=== PATIENT | male | born 1945 | race Caucasian/White ===

== ENCOUNTER 2016-05-26 16:51 | Inpatient (IN) ==
[2016-05-26] MEDS ORDERED: Ondansetron 4 MG/2 ML VIAL IVP ONE (17:14)
[2016-05-26] MEDS ORDERED: *HR* Morphine 2 MG/ML SYRINGE IVP ONE (17:15)
--- NOTE | 2016-05-26 17:15 | Emergency Department Note ---
Disposition Clinical Impression: Sepsis Qualifiers: Sepsis type: sepsis due to unspecified organism Qualified Code(s): A41.9 - Sepsis, unspecified organism Leukocytosis Qualifiers: Leukocytosis type: unspecified Qualified Code(s): D72.829 - Elevated white blood cell count, unspecified Abdominal pain Qualifiers: Abdominal location: epigastric Qualified Code(s): R10.13 - Epigastric pain Pneumonia Qualifiers: Pneumonia type: due to unspecified organism Laterality: left Lung location: lower lobe of lung Qualified Code(s): J18.9 - Pneumonia, unspecified organism Vomiting Qualifiers: Vomiting type: unspecified Vomiting Intractability: unspecified Nausea presence : with nausea Qualified Code(s): R11.2 - Nausea with vomiting, unspecified Disposition: Admitted As Inpatient Condition: Good General Adult HPI - General Chief complaint: ED GI Bleed Stated complaint: abdominal pain Time Seen by Provider: 05/26/16 17:04 Source: patient Mode of arrival: EMS Limitations: no limitations Nursing Notes Reviewed: Yes Vital Signs Reviewed: Yes - History of Present Illness HPI Narrative: 70-year-old male history of throat cancer with a PEG tube presents for evaluation of not feeling well for the past week. Noted have several bouts of coffee-ground emesis during this time. Also notable diarrhea. Denies any fevers. Reports some abdominal pain. Denies shortness of breath but does report a cough. at bedside the cough is been going on for the past week. Patient has not had any recent hospitalizations. Denies any chest pain. Denies any recent use of antibiotics. Patient states his pain is primarily in the midepigastric without radiation. Patient denies any known ulcers. No esophageal varices. No notable liver disease Does not admit to excessive NSAID use. Patient has not had an EGD or colonoscopy recently. at bedside states the patient's symptoms having gone on for over a week. His past history includes throat cancer that he had surgery on in the past. Onset (ago): week(s) Location: abdomen Radiation: non-radiation Pain Scale: 0 - Related Data Home Medications Medication Instructions Recorded Confirmed Acetaminophen [Tylenol] 650 tab PO Q6HR PRN 04/02/15 05/26/16 Albuterol Sulfate [Albuterol 2 puff IH Q6HR PRN 04/02/15 05/26/16 Inhaler] Magnesium Hydroxide [Milk of 15 ml PO BID PRN 04/02/15 05/26/16 Magnesia] Morphine Sulfate 40 mg PO Q6H PRN 09/01/15 05/26/16 Lactose-Reduced Food [Ensure 5 bottle PO DAILY 05/26/16 05/26/16 Liquid] Levothyroxine [Synthroid] 88 mcg PO DAILY 05/26/16 05/26/16 Lisinopril [Zestril] 5 mg PO DAILY 05/26/16 05/26/16 Ranitidine HCl [Acid Injection Molding Technician] 150 mg PO BID 05/26/16 05/26/16 Previous Rx's Medication Instructions Recorded Potassium Chloride Elixir 20 meq GTUBE DAILY 30 Days 09/03/15 [Potassium Chloride] Allergies Allergy/AdvReac Type Severity Reaction Status Date / Time ezetimibe [From Zetia] Allergy Swelling Verified 05/26/16 19:37 of Lip/Tongue/Throat All systems ED: reviewed and negative except as stated. Constitutional: Reports: as per HPI. Denies: fever Eyes: Reports: as per HPI ENT ED: Reports: as per HPI Cardiovascular: Reports: as per HPI. Denies: chest pain, palpitations Respiratory: Reports: as per HPI, cough. Denies: dyspnea Gastrointestinal: Reports: as per HPI, abdominal pain, nausea, vomiting, diarrhea Genitourinary: Reports: as per HPI Musculoskeletal: Reports: as per HPI Integumentary: Reports: as per HPI Neurological: Reports: as per HPI Psychiatric: Reports: as per HPI Endocrine: Reports: as per HPI Hematological/Lymphatic: Reports: as per HPI Past Medical History - Past Medical History Medical history: Reports: cancer, COPD, coronary artery disease, GI bleed, hyperlipidemia, hypertension, myocardial infarction, thyroid disease, other Surgical history: Reports: cancer surgery (G tube, radical neck), cholecystectomy, coronary bypass (CABG), tracheostomy (G tube, radical neck), other Psychiatric history: Reports: no psych history - Social History Smoking Status: Former smoker Smokeless Tobacco Status: No Alcohol use: Reports: none Drug use: Reports: none Physical Exam - General Limitations: no limitations General appearance: alert - Head Head exam: normocephalic, normal inspection - Eye Eye exam: Present: normal appearance, EOMI. Absent: scleral icterus - ENT ENT exam: normal exam, mucous membranes dry - Neck Neck exam: Present: normal inspection, trachea midline - Chest Chest inspection: Present: normal inspection, symmetric chest wall rise - Respiratory Respiratory exam: Present: other (Diffuse coarse lung sounds). Absent: respiratory distress - Cardiovascular Cardiovascular exam: Present: normal rhythm, tachycardia - Abdominal Exam Abdominal exam: Present: soft, tenderness (Mild to moderate tenderness in the epigastric), other (Functioning G-tube in place without surrounding erythema). Absent: distention, guarding, rebound - Rectal Exam Claims Support Specialist present during exam: Yes Rectal exam: Present: normal rectal tone, heme (-) stool. Absent: hemorrhoids, mass, tenderness - Extremities Exam Extremities exam: Present: normal inspection. Absent: pedal edema - Back Exam Back exam: Present: normal inspection - Neurological Exam Neurological exam: Present: alert, oriented X3 - Skin Skin exam: Present: warm, dry, intact, normal color Course Course Narrative: Patient presents from the [facility] work[facility] initiated. Patient did have an elevated WBC of 22,000 as well as elevated lactate 3.2. Patient's chest x-ray was read as no acute findings from the [facility]. Repeat lab work. Initiate IV fluid hydration and initiate sepsis protocol. His vitals are stable. Patient's hemoglobin was 16.3. Patient had a gastric Hemoccult that was read as positive. - Reevaluation(s) Reevaluation #1: Since the patient was having symptoms of cough and congestion in the setting of possible sepsis. Respiratory antibiotics were ordered. Patient's rectal guaiac was negative. However patient did have an episode of coffee-ground emesis. Time: 18:15 Reevaluation #2: Patient seen and examined. Patient denies any needs at this time. Time: 20:29 Vital Signs Temperature 98.6 F 05/26/16 16:54 Pulse Rate 112 05/26/16 16:54 Respiratory Rate 18 05/26/16 16:54 Blood Pressure 180/92 05/26/16 16:54 O2 Sat by Pulse Oximetry 93 L 05/26/16 16:54 Temperature 98.6 F 05/26/16 16:54 Pulse Rate 112 05/26/16 16:54 Respiratory Rate 18 05/26/16 16:54 Blood Pressure 180/92 05/26/16 16:54 O2 Sat by Pulse Oximetry 93 L 05/26/16 16:54 Medical Decision Making - MDM Narrative Medical decision making narrative: 70-year-old male with a history of throat cancer presents for evaluation of concerns for pneumonia. Patient was at the [facility]. Patient had lab work initially obtained at the [facility] which was concerning with an elevated leukocytosis and left shift and elevated lactate of 3.2. Patient IV fluid hydration started there. Patient's states that he has been having emesis over the past week. Patient was noted have some coffee-ground emesis, however the patient has not been having any blood out of his G-tube and the patient's rectal guaiac was negative. The patient clinically resembles pneumonia with cough that is possibly early in nature as is has not showed up on chest x-ray. Patient's abdominal exam shows some mild tenderness. Patient's CT of the abdomen and pelvis shows no acute abnormalities. Patient's repeat labs in the emergency department does show a decrease in the lactate to 2.2. Patient's receiving triple antibiotics for possible lung pathogens per sepsis protocol. Patient was given IV fluid and pain control. Patient's chest x-ray shows possible left lower lobe pneumonia. Patient has not had any recent hospitalizations, however the patient did present was SIRS criteria with elevated lactate 3.2 from the [facility] as well as leukocytosis. Patient was started on the sepsis order set and was given triple antibiotics per order set. The antibiotics will need to be de-escalated once patient shows improvement. It is unclear whether this patient's bleeding is from his gastric mucosa. Possibly the bleeding is related to his upper GI cancer. The patient is hemodynamically stable. The patient received prophylactic dose of Protonix. Patient was noted to the hospitalist for further evaluation and monitoring. - Medical Records Medical records reviewed: Yes I reviewed the patient's medical records. - Lab Data Lab results reviewed: Yes I reviewed the patient's lab results. Result diagrams: 05/26/16 17:32 05/26/16 17:32 Lab Results 05/26/16 05/26/16 05/26/16 Range/Units 15:49 17:32 17:32 WBC 24.5 H (4.3-11.1) K/mcL RBC 5.18 (4.19-5.50) M/mcL Hgb 15.8 (12.9-16.9) g/dL Hct 45.6 (37.5-50.1) % MCV 88.0 (83.0-100.0) fL MCH 30.5 (28.0-33.3) pg MCHC 34.6 (31.6-35.5) g/dL RDW 13.0 (11.5-14.5) % Plt Count 400 (140-400) K/mcL MPV 9.9 (9.4-12.4) fL Immature Gran % 0.5 (0-4) % Seg Neutrophils % 93.8 % Lymphocytes % 3.5 % Monocytes % 2.0 % Eosinophils % 0.0 % Basophils % 0.2 % Neutrophils # 23.0 H (1.6-8.9) K/mcL Lymphocytes # 0.9 (0.6-4.6) K/mcL Monocytes # 0.5 (0.0-1.3) K/mcL Eosinophils # 0.0 (0.0-0.6) K/mcL Basophils # 0.1 (0.0-0.2) K/mcL Platelet Estimate Normal (Normal) PT 11.3 (9.4-12.1) Seconds INR 1.0 APTT 26.0 (26.0-36.0) Seconds Sodium (136-145) mEq/L Potassium (3.5-4.5) mEq/L Chloride (98-109) mEq/L Carbon Dioxide (19-29) mEq/L BUN (8-26) mg/dL Creatinine (0.72-1.25) mg/dL Est GFR ( Amer) (> 60) Est GFR (Non-Af Amer) (> 60) BUN/Creatinine Ratio (6-26) Glucose (70-99) mg/dL Calculated Osmolality (280-300) Lactic Acid (0.5-2.2) mmol/L Calcium (8.6-10.8) mg/dL Phosphorus (2.3-4.7) mg/dL Magnesium (1.6-2.6) mg/dL Total Bilirubin (0.2-1.2) mg/dL Direct Bilirubin (0.0-0.5) mg/dL Indirect Bilirubin (0.0-1.2) mg/dL AST (5-34) Units/L ALT (0-55) Units/L Alkaline Phosphatase (38-126) Units/L Troponin I (0-0.03) ng/mL Serum Total Protein (6.0-8.3) g/dL Albumin (3.5-5.0) g/dL Globulin (2.4-3.5) g/dL Albumin/Globulin Ratio (1.1-2.2) Urine Color Yellow (Yellow) Urine Clarity Clear (Clear) Urine pH 8.0 (5.0-8.0) pH Units Ur Specific [place] 1.021 (1.010-1.025) Urine Protein 30 H (Neg-Trace) mg/dL Urine Glucose (UA) 100 H (Normal) mg/dL Urine Ketones Negative (Negative) mg/dL Urine Blood Negative (Negative) Urine Nitrite Negative (Negative) Urine Bilirubin Negative (Negative) Urine Urobilinogen Normal (Normal) mg/dL Ur Leukocyte Esterase Negative (Negative) Urine Microscopic RBC 5-15 H (0-3) per hpf Urine Microscopic WBC 0-3 (0-3) per hpf Ur Squamous Epith Cells Many H (None-Few) per lpf Urine Bacteria None Seen (None-Few) per hpf Hyaline Casts None Seen (None-Few) per lpf Ur Culture Indicated? NO (NO) Specimen Rejected Blood Type Antibody Screen 05/26/16 05/26/16 05/26/16 Range/Units 17:32 17:32 17:32 WBC (4.3-11.1) K/mcL RBC (4.19-5.50) M/mcL Hgb (12.9-16.9) g/dL Hct (37.5-50.1) % MCV (83.0-100.0) fL MCH (28.0-33.3) pg MCHC (31.6-35.5) g/dL RDW (11.5-14.5) % Plt Count (140-400) K/mcL MPV (9.4-12.4) fL Immature Gran % (0-4) % Seg Neutrophils % % Lymphocytes % % Monocytes % % Eosinophils % % Basophils % % Neutrophils # (1.6-8.9) K/mcL Lymphocytes # (0.6-4.6) K/mcL Monocytes # (0.0-1.3) K/mcL Eosinophils # (0.0-0.6) K/mcL Basophils # (0.0-0.2) K/mcL Platelet Estimate (Normal) PT (9.4-12.1) Seconds INR APTT (26.0-36.0) Seconds Sodium 140 (136-145) mEq/L Potassium 4.1 (3.5-4.5) mEq/L Chloride 104 (98-109) mEq/L Carbon Dioxide 24 (19-29) mEq/L BUN 31 H (8-26) mg/dL Creatinine 1.13 (0.72-1.25) mg/dL Est GFR ( Amer) > 60 (> 60) Est GFR (Non-Af Amer) > 60 (> 60) BUN/Creatinine Ratio 27 H (6-26) Glucose 148 H (70-99) mg/dL Calculated Osmolality 299 (280-300) Lactic Acid (0.5-2.2) mmol/L Calcium 10.4 (8.6-10.8) mg/dL Phosphorus 1.8 L (2.3-4.7) mg/dL Magnesium 2.2 (1.6-2.6) mg/dL Total Bilirubin 0.6 (0.2-1.2) mg/dL Direct Bilirubin 0.2 (0.0-0.5) mg/dL Indirect Bilirubin 0.4 (0.0-1.2) mg/dL AST 22 (5-34) Units/L ALT 17 (0-55) Units/L Alkaline Phosphatase 71 (38-126) Units/L Troponin I 0.01 (0-0.03) ng/mL Serum Total Protein 8.8 H (6.0-8.3) g/dL Albumin 3.9 (3.5-5.0) g/dL Globulin 4.9 H (2.4-3.5) g/dL Albumin/Globulin Ratio 0.8 L (1.1-2.2) Urine Color (Yellow) Urine Clarity (Clear) Urine pH (5.0-8.0) pH Units Ur Specific [place] (1.010-1.025) Urine Protein (Neg-Trace) mg/dL Urine Glucose (UA) (Normal) mg/dL Urine Ketones (Negative) mg/dL Urine Blood (Negative) Urine Nitrite (Negative) Urine Bilirubin (Negative) Urine Urobilinogen (Normal) mg/dL Ur Leukocyte Esterase (Negative) Urine Microscopic RBC (0-3) per hpf Urine Microscopic WBC (0-3) per hpf Ur Squamous Epith Cells (None-Few) per lpf Urine Bacteria (None-Few) per hpf Hyaline Casts (None-Few) per lpf Ur Culture Indicated? (NO) Specimen Rejected Blood Type A POSITIVE Antibody Screen NEGATIVE 05/26/16 05/26/16 Range/Units 17:56 18:39 WBC (4.3-11.1) K/mcL RBC (4.19-5.50) M/mcL Hgb (12.9-16.9) g/dL Hct (37.5-50.1) % MCV (83.0-100.0) fL MCH (28.0-33.3) pg MCHC (31.6-35.5) g/dL RDW (11.5-14.5) % Plt Count (140-400) K/mcL MPV (9.4-12.4) fL Immature Gran % (0-4) % Seg Neutrophils % % Lymphocytes % % Monocytes % % Eosinophils % % Basophils % % Neutrophils # (1.6-8.9) K/mcL Lymphocytes # (0.6-4.6) K/mcL Monocytes # (0.0-1.3) K/mcL Eosinophils # (0.0-0.6) K/mcL Basophils # (0.0-0.2) K/mcL Platelet Estimate (Normal) PT (9.4-12.1) Seconds INR APTT (26.0-36.0) Seconds Sodium (136-145) mEq/L Potassium (3.5-4.5) mEq/L Chloride (98-109) mEq/L Carbon Dioxide (19-29) mEq/L BUN (8-26) mg/dL Creatinine (0.72-1.25) mg/dL Est GFR ( Amer) (> 60) Est GFR (Non-Af Amer) (> 60) BUN/Creatinine Ratio (6-26) Glucose (70-99) mg/dL Calculated Osmolality (280-300) Lactic Acid 2.2 (0.5-2.2) mmol/L Calcium (8.6-10.8) mg/dL Phosphorus (2.3-4.7) mg/dL Magnesium (1.6-2.6) mg/dL Total Bilirubin (0.2-1.2) mg/dL Direct Bilirubin (0.0-0.5) mg/dL Indirect Bilirubin (0.0-1.2) mg/dL AST (5-34) Units/L ALT (0-55) Units/L Alkaline Phosphatase (38-126) Units/L Troponin I (0-0.03) ng/mL Serum Total Protein (6.0-8.3) g/dL Albumin (3.5-5.0) g/dL Globulin (2.4-3.5) g/dL Albumin/Globulin Ratio (1.1-2.2) Urine Color (Yellow) Urine Clarity (Clear) Urine pH (5.0-8.0) pH Units Ur Specific [place] (1.010-1.025) Urine Protein (Neg-Trace) mg/dL Urine Glucose (UA) (Normal) mg/dL Urine Ketones (Negative) mg/dL Urine Blood (Negative) Urine Nitrite (Negative) Urine Bilirubin (Negative) Urine Urobilinogen (Normal) mg/dL Ur Leukocyte Esterase (Negative) Urine Microscopic RBC (0-3) per hpf Urine Microscopic WBC (0-3) per hpf Ur Squamous Epith Cells (None-Few) per lpf Urine Bacteria (None-Few) per hpf Hyaline Casts (None-Few) per lpf Ur Culture Indicated? (NO) Specimen Rejected Hemolyzed Blood Type Antibody Screen - Radiology Data Radiology results reviewed: Yes I reviewed the patient's radiology results. Chest X-Ray 05/26/16 17:16 IMPRESSION: Possible early left lower lobe pneumonia versus chronic fibrosis D/ / Monster Keyes MD / Monster Keyes MD Interpreting Provider: Monster Keyes MD Abdomen/Pelvis CT 05/26/16 17:19 IMPRESSION: No acute abnormality identified. Specifically, no obvious source of patient's GI bleed detected. With continued clinical concern, advise endoscopy for further evaluation. D/ / Rohit Roblero MD / Rohit Roblero MD Interpreting Provider: Rohit Roblero MD - EKG Data EKG #1 EKG shows normal: sinus rhythm Rate: tachycardia Rhythm: NSR [place]/QRS: normal Q waves: III When compared to previous EKG there are: no significant changes Interpretation: no acute changes, unchanged when compared to prior tracing (date ) (08/2015) [place] Situation: Demographics Background: Presenting Complaint Assessment: Vital Signs, Course and respsone to treatment, Patient/Family Expectation Recommendation: Barrier(s) to disposition, Recommendation based on pending studies, treatments, or consults S.B.AF[facility] Report Given to: Dr. Ginette Benavides Repor Time: 20:05
[2016-05-26 17:46] LABS: Basophils % 0.2 %; Hematocrit 45.6 % (37.5-50.1); Hemoglobin 15.8 g/dL (12.9-16.9); Immature Granulocytes % 0.5 % (0-4); Lymphocytes # 0.9 K/mcL (0.6-4.6); Lymphocytes % 3.5 %; Mean Corpuscular HGB Conc 34.6 g/dL (31.6-35.5); Mean Corpuscular Hemoglobin 30.5 pg (28.0-33.3); Mean Platelet Volume 9.9 fL (9.4-12.4); Monocytes # 0.5 K/mcL (0.0-1.3); Platelet Count 400 K/mcL (140-400); Red Blood Count 5.18 M/mcL (4.19-5.50); Segmented Neutrophils % 93.8 %
[2016-05-26 17:47] LABS: Basophils # 0.1 K/mcL (0.0-0.2)
[2016-05-26 17:49] LABS: Prothrombin Time 11.3 Seconds (9.4-12.1)
[2016-05-26] MEDS: 0.9 % Sodium Chloride 1,000 ML IVC SCH ×2 (17:50→19:07)
[2016-05-26 17:55] LABS: Alanine Aminotransferase 17 Units/L (0-55); Albumin 3.9 g/dL (3.5-5.0); Albumin/Globulin Ratio 0.8 (1.1-2.2); Alkaline Phosphatase 71 Units/L (38-126); Aspartate Amino Transferase 22 Units/L (5-34); BUN/Creatinine Ratio 27 (6-26); Bilirubin,Direct 0.2 mg/dL (0.0-0.5); Bilirubin,Indirect 0.4 mg/dL (0.0-1.2); Bilirubin,Total 0.6 mg/dL (0.2-1.2); Blood Urea Nitrogen 31 mg/dL (8-26); Calcium 10.4 mg/dL (8.6-10.8); Carbon Dioxide 24 mEq/L (19-29); Chloride 104 mEq/L (98-109); Globulin 4.9 g/dL (2.4-3.5); Glucose 148 mg/dL (70-99); Magnesium 2.2 mg/dL (1.6-2.6); Osmolality,Calculated 299 (280-300); Phosphorous 1.8 mg/dL (2.3-4.7); Potassium 4.1 mEq/L (3.5-4.5); Sodium 140 mEq/L (136-145); Total Protein 8.8 g/dL (6.0-8.3); eGFR For African Americans > 60 (> 60); eGFR For Non-African Americans > 60 (> 60)
[2016-05-26] MEDS ORDERED: Vancomycin 1,000 MG in D5% in Water 250 ML IVPB ONE (18:09)
[2016-05-26] MEDS ORDERED: Piperacillin/Tazobactam 3.375 GM in D5% in Water (Mini-Bag+) 100 ML IVPB ONE (18:09)
[2016-05-26] MEDS ORDERED: Levofloxacin 750 MG/150 ML 750 MG/150 ML BAG IVPB ONE (18:09)
[2016-05-26 18:12] LABS: Platelet Estimate Normal (Normal)
[2016-05-26] MEDS ORDERED: Pantoprazole 80 MG in 0.9 % Sodium Chloride 50 ML IVPB ONE (18:17)
--- NOTE | 2016-05-26 18:51 | Emergency Department Note ---
Disposition Clinical Impression: Pneumonia, Vomiting Sepsis Qualifiers: Sepsis type: sepsis due to unspecified organism Qualified Code(s): A41.9 - Sepsis, unspecified organism Leukocytosis Qualifiers: Leukocytosis type: unspecified Qualified Code(s): D72.829 - Elevated white blood cell count, unspecified Abdominal pain Qualifiers: Abdominal location: epigastric Qualified Code(s): R10.13 - Epigastric pain Disposition: Admitted As Inpatient Condition: Good General Adult HPI - General Chief complaint: ED GI Bleed Stated complaint: abdominal pain Time Seen by Provider: 05/26/16 17:04 Source: patient Mode of arrival: EMS Limitations: no limitations - History of Present Illness Location: abdomen Pain Scale: 0 - Related Data Home Medications Medication Instructions Recorded Confirmed Acetaminophen [Tylenol] 650 tab PO Q6HR PRN 04/02/15 05/26/16 Albuterol Sulfate [Albuterol 2 puff IH Q6HR PRN 04/02/15 05/26/16 Inhaler] Magnesium Hydroxide [Milk of 15 ml PO BID PRN 04/02/15 05/26/16 Magnesia] Morphine Sulfate 40 mg PO Q6H PRN 09/01/15 05/26/16 Lactose-Reduced Food [Ensure 5 bottle PO DAILY 05/26/16 05/26/16 Liquid] Levothyroxine [Synthroid] 88 mcg PO DAILY 05/26/16 05/26/16 Lisinopril [Zestril] 5 mg PO DAILY 05/26/16 05/26/16 Ranitidine HCl [Acid Cis Coordinator] 150 mg PO BID 05/26/16 05/26/16 Previous Rx's Medication Instructions Recorded Potassium Chloride Elixir 20 meq GTUBE DAILY 30 Days 09/03/15 [Potassium Chloride] Allergies Allergy/AdvReac Type Severity Reaction Status Date / Time ezetimibe [From Zetia] Allergy Swelling Verified 05/26/16 19:37 of Lip/Tongue/Throat Constitutional: Reports: as per HPI. Denies: fever Eyes: Reports: as per HPI ENT ED: Reports: as per HPI Cardiovascular: Reports: as per HPI. Denies: chest pain, palpitations Respiratory: Reports: as per HPI, cough. Denies: dyspnea Gastrointestinal: Reports: as per HPI, abdominal pain, nausea, vomiting, diarrhea Genitourinary: Reports: as per HPI Musculoskeletal: Reports: as per HPI Integumentary: Reports: as per HPI Neurological: Reports: as per HPI Psychiatric: Reports: as per HPI Endocrine: Reports: as per HPI Hematological/Lymphatic: Reports: as per HPI Past Medical History - Past Medical History Medical history: Reports: cancer, COPD, coronary artery disease, GI bleed, hyperlipidemia, hypertension, myocardial infarction, thyroid disease, other Surgical history: Reports: cancer surgery (G tube, radical neck), cholecystectomy, coronary bypass (CABG), tracheostomy (G tube, radical neck), other Psychiatric history: Reports: no psych history - Social History Smoking Status: Former smoker Smokeless Tobacco Status: No Alcohol use: Reports: none Drug use: Reports: none Physical Exam - General Limitations: no limitations General appearance: alert Course - Reevaluation(s) Reevaluation #1: Saw the patient with the resident, Dr. Whitney. Patient was transferred from the [facility] for report of sepsis and GI bleeding. He has dark vomit that was Gastroccult positive, however his G-tube is not draining anything that looks bloody and his stool was guaiac negative. He complains of a cough. We are concerned of possibility of sepsis because he has a high white count. We could not clearly identify a source of infection on the workup here. We are Hydrating him and giving him some Protonix and giving him sepsis antibiotics. He will be admitted to the hospital. Time: 18:51 Vital Signs Temperature 98.6 F 05/26/16 16:54 Pulse Rate 112 05/26/16 16:54 Respiratory Rate 18 05/26/16 16:54 Blood Pressure 180/92 05/26/16 16:54 O2 Sat by Pulse Oximetry 93 L 05/26/16 16:54 Temperature 98.1 F 05/27/16 07:38 Pulse Rate 93 05/27/16 07:38 Respiratory Rate 15 05/27/16 07:38 Blood Pressure 193/93 05/27/16 07:38 O2 Sat by Pulse Oximetry 98 05/27/16 07:38 Oxygen Delivery Oxygen Delivery Room Air Medical Decision Making - Lab Data Result diagrams: 05/27/16 04:15 05/27/16 04:15 Lab Results 05/26/16 05/26/16 05/26/16 Range/Units 15:49 17:32 17:32 WBC 24.5 H (4.3-11.1) K/mcL RBC 5.18 (4.19-5.50) M/mcL Hgb 15.8 (12.9-16.9) g/dL Hct 45.6 (37.5-50.1) % MCV 88.0 (83.0-100.0) fL MCH 30.5 (28.0-33.3) pg MCHC 34.6 (31.6-35.5) g/dL RDW 13.0 (11.5-14.5) % Plt Count 400 (140-400) K/mcL MPV 9.9 (9.4-12.4) fL Immature Gran % 0.5 (0-4) % Seg Neutrophils % 93.8 % Lymphocytes % 3.5 % Monocytes % 2.0 % Eosinophils % 0.0 % Basophils % 0.2 % Neutrophils # 23.0 H (1.6-8.9) K/mcL Lymphocytes # 0.9 (0.6-4.6) K/mcL Monocytes # 0.5 (0.0-1.3) K/mcL Eosinophils # 0.0 (0.0-0.6) K/mcL Basophils # 0.1 (0.0-0.2) K/mcL Platelet Estimate Normal (Normal) PT 11.3 (9.4-12.1) Seconds INR 1.0 APTT 26.0 (26.0-36.0) Seconds Sodium (136-145) mEq/L Potassium (3.5-4.5) mEq/L Chloride (98-109) mEq/L Carbon Dioxide (19-29) mEq/L BUN (8-26) mg/dL Creatinine (0.72-1.25) mg/dL Est GFR ( Amer) (> 60) Est GFR (Non-Af Amer) (> 60) BUN/Creatinine Ratio (6-26) Glucose (70-99) mg/dL Calculated Osmolality (280-300) Lactic Acid (0.5-2.2) mmol/L Calcium (8.6-10.8) mg/dL Phosphorus (2.3-4.7) mg/dL Magnesium (1.6-2.6) mg/dL Total Bilirubin (0.2-1.2) mg/dL Direct Bilirubin (0.0-0.5) mg/dL Indirect Bilirubin (0.0-1.2) mg/dL AST (5-34) Units/L ALT (0-55) Units/L Alkaline Phosphatase (38-126) Units/L Troponin I (0-0.03) ng/mL Serum Total Protein (6.0-8.3) g/dL Albumin (3.5-5.0) g/dL Globulin (2.4-3.5) g/dL Albumin/Globulin Ratio (1.1-2.2) Urine Color Yellow (Yellow) Urine Clarity Clear (Clear) Urine pH 8.0 (5.0-8.0) pH Units Ur Specific [place] 1.021 (1.010-1.025) Urine Protein 30 H (Neg-Trace) mg/dL Urine Glucose (UA) 100 H (Normal) mg/dL Urine Ketones Negative (Negative) mg/dL Urine Blood Negative (Negative) Urine Nitrite Negative (Negative) Urine Bilirubin Negative (Negative) Urine Urobilinogen Normal (Normal) mg/dL Ur Leukocyte Esterase Negative (Negative) Urine Microscopic RBC 5-15 H (0-3) per hpf Urine Microscopic WBC 0-3 (0-3) per hpf Ur Squamous Epith Cells Many H (None-Few) per lpf Urine Bacteria None Seen (None-Few) per hpf Hyaline Casts None Seen (None-Few) per lpf Ur Culture Indicated? NO (NO) Specimen Rejected Blood Type Antibody Screen 05/26/16 05/26/16 05/26/16 Range/Units 17:32 17:32 17:32 WBC (4.3-11.1) K/mcL RBC (4.19-5.50) M/mcL Hgb (12.9-16.9) g/dL Hct (37.5-50.1) % MCV (83.0-100.0) fL MCH (28.0-33.3) pg MCHC (31.6-35.5) g/dL RDW (11.5-14.5) % Plt Count (140-400) K/mcL MPV (9.4-12.4) fL Immature Gran % (0-4) % Seg Neutrophils % % Lymphocytes % % Monocytes % % Eosinophils % % Basophils % % Neutrophils # (1.6-8.9) K/mcL Lymphocytes # (0.6-4.6) K/mcL Monocytes # (0.0-1.3) K/mcL Eosinophils # (0.0-0.6) K/mcL Basophils # (0.0-0.2) K/mcL Platelet Estimate (Normal) PT (9.4-12.1) Seconds INR APTT (26.0-36.0) Seconds Sodium 140 (136-145) mEq/L Potassium 4.1 (3.5-4.5) mEq/L Chloride 104 (98-109) mEq/L Carbon Dioxide 24 (19-29) mEq/L BUN 31 H (8-26) mg/dL Creatinine 1.13 (0.72-1.25) mg/dL Est GFR ( Amer) > 60 (> 60) Est GFR (Non-Af Amer) > 60 (> 60) BUN/Creatinine Ratio 27 H (6-26) Glucose 148 H (70-99) mg/dL Calculated Osmolality 299 (280-300) Lactic Acid (0.5-2.2) mmol/L Calcium 10.4 (8.6-10.8) mg/dL Phosphorus 1.8 L (2.3-4.7) mg/dL Magnesium 2.2 (1.6-2.6) mg/dL Total Bilirubin 0.6 (0.2-1.2) mg/dL Direct Bilirubin 0.2 (0.0-0.5) mg/dL Indirect Bilirubin 0.4 (0.0-1.2) mg/dL AST 22 (5-34) Units/L ALT 17 (0-55) Units/L Alkaline Phosphatase 71 (38-126) Units/L Troponin I 0.01 (0-0.03) ng/mL Serum Total Protein 8.8 H (6.0-8.3) g/dL Albumin 3.9 (3.5-5.0) g/dL Globulin 4.9 H (2.4-3.5) g/dL Albumin/Globulin Ratio 0.8 L (1.1-2.2) Urine Color (Yellow) Urine Clarity (Clear) Urine pH (5.0-8.0) pH Units Ur Specific [place] (1.010-1.025) Urine Protein (Neg-Trace) mg/dL Urine Glucose (UA) (Normal) mg/dL Urine Ketones (Negative) mg/dL Urine Blood (Negative) Urine Nitrite (Negative) Urine Bilirubin (Negative) Urine Urobilinogen (Normal) mg/dL Ur Leukocyte Esterase (Negative) Urine Microscopic RBC (0-3) per hpf Urine Microscopic WBC (0-3) per hpf Ur Squamous Epith Cells (None-Few) per lpf Urine Bacteria (None-Few) per hpf Hyaline Casts (None-Few) per lpf Ur Culture Indicated? (NO) Specimen Rejected Blood Type A POSITIVE Antibody Screen NEGATIVE 05/26/16 05/26/16 Range/Units 17:56 18:39 WBC (4.3-11.1) K/mcL RBC (4.19-5.50) M/mcL Hgb (12.9-16.9) g/dL Hct (37.5-50.1) % MCV (83.0-100.0) fL MCH (28.0-33.3) pg MCHC (31.6-35.5) g/dL RDW (11.5-14.5) % Plt Count (140-400) K/mcL MPV (9.4-12.4) fL Immature Gran % (0-4) % Seg Neutrophils % % Lymphocytes % % Monocytes % % Eosinophils % % Basophils % % Neutrophils # (1.6-8.9) K/mcL Lymphocytes # (0.6-4.6) K/mcL Monocytes # (0.0-1.3) K/mcL Eosinophils # (0.0-0.6) K/mcL Basophils # (0.0-0.2) K/mcL Platelet Estimate (Normal) PT (9.4-12.1) Seconds INR APTT (26.0-36.0) Seconds Sodium (136-145) mEq/L Potassium (3.5-4.5) mEq/L Chloride (98-109) mEq/L Carbon Dioxide (19-29) mEq/L BUN (8-26) mg/dL Creatinine (0.72-1.25) mg/dL Est GFR ( Amer) (> 60) Est GFR (Non-Af Amer) (> 60) BUN/Creatinine Ratio (6-26) Glucose (70-99) mg/dL Calculated Osmolality (280-300) Lactic Acid 2.2 (0.5-2.2) mmol/L Calcium (8.6-10.8) mg/dL Phosphorus (2.3-4.7) mg/dL Magnesium (1.6-2.6) mg/dL Total Bilirubin (0.2-1.2) mg/dL Direct Bilirubin (0.0-0.5) mg/dL Indirect Bilirubin (0.0-1.2) mg/dL AST (5-34) Units/L ALT (0-55) Units/L Alkaline Phosphatase (38-126) Units/L Troponin I (0-0.03) ng/mL Serum Total Protein (6.0-8.3) g/dL Albumin (3.5-5.0) g/dL Globulin (2.4-3.5) g/dL Albumin/Globulin Ratio (1.1-2.2) Urine Color (Yellow) Urine Clarity (Clear) Urine pH (5.0-8.0) pH Units Ur Specific [place] (1.010-1.025) Urine Protein (Neg-Trace) mg/dL Urine Glucose (UA) (Normal) mg/dL Urine Ketones (Negative) mg/dL Urine Blood (Negative) Urine Nitrite (Negative) Urine Bilirubin (Negative) Urine Urobilinogen (Normal) mg/dL Ur Leukocyte Esterase (Negative) Urine Microscopic RBC (0-3) per hpf Urine Microscopic WBC (0-3) per hpf Ur Squamous Epith Cells (None-Few) per lpf Urine Bacteria (None-Few) per hpf Hyaline Casts (None-Few) per lpf Ur Culture Indicated? (NO) Specimen Rejected Hemolyzed Blood Type Antibody Screen Attestation Statement - Attestation Attestation: I, Dr. Toscano, examined this patient [id number] and my medical decision- making was reviewed with Dr. Whitney, Resident Physician. I agree with the documented findings, disposition and treatment plan as described except to the extent set forth below. Please see my progress note for details.
[2016-05-26 19:03] LABS: Bilirubin,Urine Negative (Negative); Blood,Urine Negative (Negative); Clarity,Urine Clear (Clear); Color,Urine Yellow (Yellow); Glucose,Urine (UA) 100 mg/dL (Normal); Ketones,Urine Negative (Negative); Leukocyte Esterase,Urine Negative (Negative); Nitrite,Urine Negative (Negative); Protein,Urine 30 mg/dL (Neg-Trace); Specific Gravity,Urine 1.021 (1.010-1.025); Urobilinogen,Urine Normal (Normal)
[2016-05-26 19:05] LABS: Bacteria,Urine None Seen per hpf (None-Few); Hyaline Casts,Urine None Seen per lpf (None-Few); Squamous Epithelial Cell,Urine Many per lpf (None-Few); WBC,Urine 0-3 per hpf (0-3)
--- NOTE | 2016-05-26 21:53 | Internal Med History&Physical ---
Date of Encounter: 05/26/16 Time of Encounter: 21:25 Assessment and Plan (1) Sepsis Current visit: Yes Status: Acute Sepsis, in the setting of likely pneumonia. WBC 24.5, tachycardiac, and [facility] 2[facility]2 at [facility] (most recently 1.4) Continue IVF. UA negative. Blood cultures pending, sputum culture ordered. Received one dose Vancomycin in the ED. Continue Zosyn and Levaquin. Qualifiers: Sepsis type: sepsis due to unspecified organism Qualified Code(s): A41.9 - Sepsis, unspecified organism (2) Pneumonia Current visit: Yes Status: Acute CAP, with concern for aspiration with recent vomiting. Unproductive cough x 2 weeks. CXR suggestive of LLL pneumonia vs fibrosis. Elevated WBC at 24.5. Received one dose Vacnomycin in the ED, will continue Zosyn and Levaquin. Continue home PRN albuterol neb treatments. Qualifiers: Pneumonia type: due to unspecified organism Laterality: left Lung location: lower lobe of lung Qualified Code(s): J18.9 - Pneumonia, unspecified organism (3) GI bleed Current visit: Yes Status: Acute 2 week history of melena, coffee-ground emesis, and abdominal pain. Reported positive gastric occult blood done at the [facility] prior to arrival tonight. H/H Q6H, currently Hgb 15.8. Started on protonix drip, received 80mg bolus. Consult GI/surgery for possible EGD/colonoscopy. Qualifiers: GI bleed type/associated pathology: melena Qualified Code(s): K92.1 - Melena (4) HTN (hypertension) Current visit: Yes Status: Acute BP on admission 180/92. Restarting home medications. Continue to monitor and adjust medications as needed. Qualifiers: Hypertension type: essential hypertension Qualified Code(s): I10 - Essential (primary) hypertension (5) CAD (coronary artery disease) Current visit: Yes Status: Chronic s/p CABG x 4. Past HI (greater than 3 years ago). Patient not on antiplatelet therapy, likely due to history of GI bleed. Qualifiers: Coronary Disease-Associated Artery/Lesion type: bypass graft [place] vs. transplanted heart: [place] heart Associated angina: with unspecified angina Qualified Code(s): I25.709 - Atherosclerosis of coronary artery bypass graft(s) , unspecified, with unspecified angina pectoris (6) History of throat cancer Current visit: Yes Status: Chronic S/p radical neck surgery, PEG tube placement. Internal Medicine - H&P: HPI Chief complaint: abdominal pain Admitted From: Hospital to Hospital Transfer ([facility]) Plans for Post Hospital Care: Home History of present illness: Mr. Francis is a 70 year old male brought to the ED, originally seen at the [facility] for abdominal pain x 2 weeks. Patient notes black stools and coffee-ground emesis for 2 weeks with off and on abdominal pain. Patient states he has also had substernal non-radiating chest pain off and on, in addition to the epigastric pain. Patient is unable to rate severity, but states he would describe the pain as severe at times. Patient also notes a cough for the past 2 weeks, denies any sputum production, admits to headache currently. Denies any blood in G tube. Denies any dizziness, dysuria. Patient has a pertinent history of throat cancer in 2007, with radical neck surgery and placement of a PEG tube. Other PMHx includes CAD, HI s/p CABG, HTN, HLD, thyroid disease. Past Med Surg Social Fam HX - Past Medical History Medical history: cancer, COPD, coronary artery disease, GI bleed, hyperlipidemia , hypertension, myocardial infarction, thyroid disease, other Psychiatric history: no psych history - Past Surgical History Surgical History: cancer surgery (G tube, radical neck), cholecystectomy, coronary bypass (CABG), tracheostomy (G tube, radical neck), other - Social History Smoking Status: Former smoker Smokeless Tobacco Status: No Alcohol use: none Drug use: none Internal Medicine - H&P: Meds Acetaminophen [Tylenol] 650 tab PO Q6HR PRN 04/02/15 [History] Albuterol Sulfate [Albuterol Inhaler] 2 puff IH Q6HR PRN 04/02/15 [History] Magnesium Hydroxide [Milk of Magnesia] 15 ml PO BID PRN 04/02/15 [History] Morphine Sulfate 40 mg PO Q6H PRN 09/01/15 [History] Potassium Chloride Elixir [Potassium Chloride] 20 meq GTUBE DAILY 30 Days [Rx] Lactose-Reduced Food [Ensure Liquid] 5 bottle PO DAILY 05/26/16 [History] Levothyroxine [Synthroid] 88 mcg PO DAILY 05/26/16 [History] Lisinopril [Zestril] 5 mg PO DAILY 05/26/16 [History] Ranitidine HCl [Acid Rectifying Attendant] 150 mg PO BID 05/26/16 [History] Allergies ezetimibe [From Zetia] Allergy (Verified 05/26/16 19:37) Swelling of Lip/Tongue/Throat All Systems PM: A 10-system review of systems was performed and is negative for pertinent findings except as documented above in the HPI. - Constitutional Constitutional: chills, no fever(s) - Cardiovascular Cardiovascular ROS IM: chest pain, no dyspnea, no edema, no lightheadedness, no syncope - Respiratory Respiratory: cough, no dyspnea, no excessive phlegm production, no pain with cough - Gastrointestinal Gastrointestinal: coffee ground emesis, diarrhea, melena, vomiting, no abdominal pain - Genitourinary Genitourinary ROS male: no dysuria - Integumentary Integumentary IM: no new lesions, no rash - Neurological Neurological ROS: no dizziness, no focal weakness - Endocrine Endocrine IM: cold intolerance - Constitutional Vitals: Temp Pulse Resp BP Pulse Ox 98.6 F 95 18 173/83 98 05/26/16 21:25 05/26/16 20:41 05/26/16 21:25 05/26/16 21:25 05/26/16 20:41 General appearance: Present: cooperative, A&O X 3, no acute distress, underweight - Head Head exam: Present: atraumatic, normocephalic - Eye Eye exam: Present: EOMI, normal appearance, conjuntiva pink, sclera anicteric - Neck Neck exam general surgery: Present: full ROM, trachea midline Additional comments: s/p radical neck surgery in 2007. - Respiratory Respiratory exam: Present: rhonchi, wheezes. Absent: accessory muscle use, chest wall tenderness, rales, respiratory distress, stridor - Cardiovascular Cardiovascular exam: Present: +S1, +S2, tachycardia. Absent: diastolic murmur, gallop, rubs, systolic murmur - GI/Abdominal GI/Abdominal exam: Present: normal bowel sounds, soft, tenderness (mildly tender on palpation of epigastric region.), no peritoneal signs. Absent: distended, guarding - Extremities Exam Extremities exam: Present: warm, radial pulses palpable and symetrical. Absent : calf tenderness, cyanotic, pedal edema - Neurological Exam Neurological exam: Present: alert, oriented X3, no focal deficits. Absent: facial droop, speech deficit - Skin Skin exam: Present: dry, intact. Absent: diaphoretic Internal Med - H&P Results - Labs CBC & Chem 7: 05/26/16 17:32 05/26/16 17:32
[2016-05-26] MEDS ORDERED: Naloxone 0.4 MG/ML INJ IVP PRN (22:02)
--- NOTE | 2016-05-26 22:19 | Event Note ---
Date of Encounter: 05/26/16 Time of Encounter: 22:16 Patient seen and examined with medical claims analyst. Briefly he presents with 2 complains. He has been having epigastric pain coffee ground comes in black stools for the past 2 weeks. He will be kept NPO will flush the peg tube to see if there is any blood. Protonix drip. Surgery evaluation for upper endoscopy. His hemoglobin is 15 follow Q 6 hours. He has been also having coughing with increased sputum production, chest imaging suggestive of pneumonia. He will be kept on Zosyn" possibility of aspiration with all this vomiting. Levaquin for atypicals. Is hemodynamically stable tachycardic from substances and probable G.I. bleeding. His normotensive.
[2016-05-26] MEDS ORDERED: Acetaminophen IV 500 MG/50 ML INFUS..BTL IVPB PRN (22:24)
[2016-05-26 22:53] LABS: Hematocrit 38.5 % (37.5-50.1)
[2016-05-26 22:54] LABS: Hemoglobin 13.2 g/dL (12.9-16.9)
[2016-05-27] MEDS: 0.9 % Sodium Chloride 1,000 ML IVC SCH ×2 (00:01→11:25)
[2016-05-27] MEDS: Pantoprazole 40 MG in 0.9 % Sodium Chloride Mini Bag 100 ML IVC SCH ×5 (00:01→21:48)
[2016-05-27] MEDS: *HR* Morphine 2 MG/ML SYRINGE IVP PRN ×7 (00:03→22:11)
[2016-05-27] MEDS: Ondansetron 4 MG/2 ML VIAL IVP PRN ×2 (01:33→15:31)
[2016-05-27] MEDS: Piperacillin/Tazobactam 3.375 GM in D5% in Water (Mini-Bag+) 100 ML IVPB SCH ×3 (03:37→21:48)
[2016-05-27 05:05] LABS: Basophils % 0.2 %; Eosinophils % 0.1 %; Hemoglobin 12.3 g/dL (12.9-16.9); Immature Granulocytes % 1.4 % (0-4); Lymphocytes # 1.4 K/mcL (0.6-4.6); Lymphocytes % 7.4 %; Mean Corpuscular HGB Conc 35.1 g/dL (31.6-35.5); Mean Corpuscular Hemoglobin 31.7 pg (28.0-33.3); Mean Corpuscular Volume 90.2 fL (83.0-100.0); Mean Platelet Volume 10.4 fL (9.4-12.4); Monocytes # 0.8 K/mcL (0.0-1.3); Monocytes % 4.4 %; Neutrophils # 16.2 K/mcL (1.6-8.9); Platelet Count 287 K/mcL (140-400); Red Blood Count 3.88 M/mcL (4.19-5.50); Red Cell Distribution Width 13.2 % (11.5-14.5); Segmented Neutrophils % 86.5 %
[2016-05-27 05:29] LABS: BUN/Creatinine Ratio 25 (6-26); Blood Urea Nitrogen 22 mg/dL (8-26); Carbon Dioxide 19 mEq/L (19-29); Chloride 112 mEq/L (98-109); Glucose 99 mg/dL (70-99); Osmolality,Calculated 293 (280-300); Phosphorous 1.9 mg/dL (2.3-4.7); Potassium 3.6 mEq/L (3.5-4.5); Sodium 140 mEq/L (136-145); eGFR For African Americans > 60 (> 60); eGFR For Non-African Americans > 60 (> 60)
--- NOTE | 2016-05-27 11:33 | Electrocardiograph Report ---
[facility] Test Date: 2016-05-26 Pat Name: Luis Francis Department: 104 Room: 2NE18 Gender: M Die Barber: : 1945 Requested By: Twin Whitney Order Number: [id number] Reading MD: Abel Bridges Measurements Intervals [place] Rate: 111 P: 57 AL: 170 QRS: -3 QRSD: 105 T: 64 QT: 344 QTc: 409 Interpretive Statements SINUS TACHYCARDIA POSSIBLE INFERIOR MYOCARDIAL INFARCTION, OF INDETERMINATE AGE Electronically Signed On 05-27-16 11:31:59 EST by Abel Bridges
[2016-05-27 11:42] LABS: Hematocrit 35.8 % (37.5-50.1); Hemoglobin 12.6 g/dL (12.9-16.9)
--- NOTE | 2016-05-27 11:46 | Electrocardiograph Report ---
[facility] Test Date: 2016-05-27 Pat Name: CODY ETIENNE Department: 111 Room: 2NE18 Gender: M [employer]: [facility] : 1945 Requested By: Herson Dia Order Number: [id number] Reading MD: Abel Bridges Measurements Intervals [place] Rate: 108 P: 68 OR: 162 QRS: 4 QRSD: 98 T: 47 QT: 371 QTc: 434 Interpretive Statements SINUS TACHYCARDIA ABNORMAL RHYTHM ECG Electronically Signed On 05-27-16 11:44:31 EST by Abel Bridges
--- NOTE | 2016-05-27 12:50 | Internal Med Progress Note ---
<Loraine Ritter - Last Filed: 05/27/16 13:19> Date of Encounter: 05/27/16 Time of Encounter: 09:00 - Assessment and plan (1) Sepsis Current Visit: Yes Status: Acute Assessment and plan: Likely secondary to pneumonia, leukocytosis, tachycardia, lactate 3.2 at [facility] prior to arrival WBC:24.5 on arrival, 18.8 today Last lactate:1.4 UA negative Blood cultures pending, sputum culture ordered On Levaquin and Zosyn for antibiotic treatment Qualifiers: Sepsis type: sepsis due to unspecified organism Qualified Code(s): A41.9 - Sepsis, unspecified organism (2) Pneumonia Current Visit: Yes Status: Acute Assessment and plan: CAP, with concern for aspiration with recent vomiting Unproductive cough x2 weeks CXR demonstrates LLL pneumonia vs chronic fibrosis Continue home prn albuterol neb treatment Levaquin and Zosyn for antibiotic treatment Qualifiers: Pneumonia type: due to unspecified organism Laterality: left Lung location: lower lobe of lung Qualified Code(s): J18.9 - Pneumonia, unspecified organism (3) GI bleed Current Visit: Yes Status: Acute Assessment and plan: Melena, coffee-ground emesis and abdominal pain for 2 weeks Reported positive gastric occult blood odne at [place] prior to arrival tonight Hgb 12.6 (previous 15.8, 13.2, 12.3) Surgery consulted Protonix drip Carafate 1gm po solution qid NPO diet except medication Will continue to monitor Qualifiers: GI bleed type/associated pathology: melena Qualified Code(s): K92.1 - Melena (4) HTN (hypertension) Current Visit: Yes Status: Acute Assessment and plan: BP 193/93 today Home medication continued Hydralazine 10mg Q6H prn for hypertension Will continue to monitor and adjust medications as needed Qualifiers: Hypertension type: essential hypertension Qualified Code(s): I10 - Essential (primary) hypertension (5) CAD (coronary artery disease) Current Visit: Yes Status: Chronic Assessment and plan: s/p CABGx4, Hx of [place] (>3 years ago) Not on antiplatelet therapy Qualifiers: Coronary Disease-Associated Artery/Lesion type: bypass graft [place] vs. transplanted heart: [place] heart Associated angina: with unspecified angina Qualified Code(s): I25.709 - Atherosclerosis of coronary artery bypass graft(s) , unspecified, with unspecified angina pectoris (6) History of throat cancer Current Visit: Yes Status: Chronic Assessment and plan: s/p radical neck surgery and PEG tube placement in 2007 - Subjective Interval history: Continues to have abdominal pain this morning. Has not had a bowel movement or emesis today. Pt admits to nonproductive cough. He reports that he does drink water and pop by mouth daily. - Constitutional Vitals: Temp Pulse Resp BP Pulse Ox 99.1 F 104 15 182/93 99 05/27/16 11:29 05/27/16 11:29 05/27/16 11:29 05/27/16 11:29 05/27/16 11:29 General appearance: Present: cooperative, A&O X 3, no acute distress, underweight - Head Head exam: Present: atraumatic, normocephalic - Eye Eye exam: Present: PERRL, conjuntiva pink, sclera anicteric Pupils: Present: PERRL - Neck Neck exam general surgery: Present: supple, trachea midline Additional comments: S/p radical neck surgery in 2007 for throat cancer - Respiratory Respiratory exam: Present: rhonchi, wheezes. Absent: accessory muscle use - Cardiovascular Cardiovascular exam: Present: RRR, +S1, +S2. Absent: diastolic murmur, gallop, rubs, systolic murmur - GI/Abdominal GI/Abdominal exam: Present: normal bowel sounds, soft, tenderness (Diffusely tender). Absent: distended, guarding, rigid Additional comments: PEG tub in place without drainage or erythema surrounding - Extremities Exam Extremities exam: Present: warm, radial pulses palpable and symetrical. Absent : calf tenderness, cyanotic, pedal edema - Neurological Exam Neurological exam: Present: CN II-XII intact, oriented X3, no focal deficits. Absent: pronater drift, facial droop, speech deficit - Skin Skin exam: Present: dry, intact Internal Medicine: Result - Labs CBC & Chem 7: 05/27/16 11:24 05/27/16 04:15 Labs: Short CBC 05/26/16 05/27/16 05/27/16 Range/Units 22:34 04:15 11:24 WBC 18.8 H (4.3-11.1) K/mcL Hgb 13.2 D 12.3 L 12.6 L (12.9-16.9) g/dL Hct 38.5 35.0 L 35.8 L (37.5-50.1) % Plt Count 287 (140-400) K/mcL Neutrophils # 16.2 H (1.6-8.9) K/mcL BMP 05/27/16 04:15 Sodium 140 Potassium 3.6 Chloride 112 H Carbon Dioxide 19 BUN 22 Creatinine 0.89 Glucose 99 Calcium 9.0 - ABG Interpretation ABG results: PT/INR, D-dimer PT 11.3 Seconds (9.4-12.1) 05/26/16 17:32 Consult Discharge Plan - Plan Referrals: [facility] [Outside] - 06/09/16 11:15 am <Herson Dia - Last Filed: 05/27/16 17:15> Date of Encounter: 05/27/16 - Assessment and plan (1) Abdominal pain Current Visit: Yes Status: Acute Qualifiers: Abdominal location: epigastric Qualified Code(s): R10.13 - Epigastric pain (2) Coffee ground emesis Current Visit: Yes Status: Acute (3) GI bleed Current Visit: Yes Status: Acute Qualifiers: GI bleed type/associated pathology: melena Qualified Code(s): K92.1 - Melena (4) HTN (hypertension) Current Visit: Yes Status: Acute Qualifiers: Hypertension type: essential hypertension Qualified Code(s): I10 - Essential (primary) hypertension (5) Hypophosphatemia Current Visit: Yes Status: Acute Assessment and plan: Replete (6) CAD (coronary artery disease) Current Visit: Yes Status: Chronic Qualifiers: Coronary Disease-Associated Artery/Lesion type: bypass graft [place] vs. transplanted heart: [place] heart Associated angina: without angina Qualified Code(s): I25.810 - Atherosclerosis of coronary artery bypass graft(s) without angina pectoris - Constitutional Vitals: Temp Pulse Resp BP Pulse Ox 98.5 F 109 16 170/102 97 05/27/16 15:17 05/27/16 15:17 05/27/16 15:17 05/27/16 15:17 05/27/16 15:17 Internal Medicine: Result - Labs CBC & Chem 7: 05/27/16 11:24 05/27/16 04:15 Labs: Short CBC 05/26/16 05/27/16 05/27/16 Range/Units 22:34 04:15 11:24 WBC 18.8 H (4.3-11.1) K/mcL Hgb 13.2 D 12.3 L 12.6 L (12.9-16.9) g/dL Hct 38.5 35.0 L 35.8 L (37.5-50.1) % Plt Count 287 (140-400) K/mcL Neutrophils # 16.2 H (1.6-8.9) K/mcL BMP 05/27/16 04:15 Sodium 140 Potassium 3.6 Chloride 112 H Carbon Dioxide 19 BUN 22 Creatinine 0.89 Glucose 99 Calcium 9.0 - ABG Interpretation ABG results: PT/INR, D-dimer PT 11.3 Seconds (9.4-12.1) 05/26/16 17:32 - Attending Attestation I examined this patient and my medical decision-making was reviewed with the Resident Physician. I agree with the documented findings, disposition and treatment plan as described except to the extent set forth below. Mr. Francis is currently admitted for acute abdominal pain and acute GI bleed as well as pneumonia. He is high risk due to the potential of hemodynamic compromise with GI bleed and respiratory compromise with pneumonia. Mr. Francis is still having a lot of discomfort in his abdomen. Most of the discomfort is upper abdomen, mostly epigastric. No urinary symptoms. He is moderately dyspneic but no CP. No fever or chills. Had some coffee ground emesis but none recently. Stool is dark. Evaulated by surgery which is appreciated. To have endoscopy tomorrow. Exam Alert. Mod distress due to pain. Heart tachy and regular Lungs diminished Abd with bowel sounds which are increased. Soft. Tender in upper quadrants. No edema Current labs reviewed I/P 1. Acute GI bleed - most likely upper. To have endo tomorrow. 2. Monitor H/H 3. Hypophophatemia Further diagnoses and plan as above.
--- NOTE | 2016-05-27 13:01 | General Surgery Consult Note ---
Date of Encounter: 05/27/16 Time of Encounter: 12:45 Assessment and Plan (1) Coffee ground emesis Current Visit: Yes Status: Acute pt with coffee ground emesis and abdominal pain for two weeks, will plan EGD in am, continue PPI therapy and carafate (2) Abdominal pain Current Visit: Yes Status: Acute concerned for possible gastric or duodenal ulcer continue PPI therapy, carafate plan EGD in am Qualifiers: Abdominal location: epigastric Qualified Code(s): R10.13 - Epigastric pain (3) Pneumonia Current Visit: Yes Status: Acute being treated by hospitalists for possible pneumonia Qualifiers: Pneumonia type: due to unspecified organism Laterality: left Lung location: lower lobe of lung Qualified Code(s): J18.9 - Pneumonia, unspecified organism History of Present Illness Consult date: 05/27/16 Reason for consult: abdominal pain History of present illness: Patient is 70 yo male with two week history of epigastric dull, gnawing abdominal pain that comes and goes. Nothing makes the pain better, nothing makes the pain worse and it has no association with food (primarliy tube feeds) . Patient has had several episodes of dark coffee ground emesis, no obvious bright red hematemesis over the last two weeks. He also has had melena and has also taken pepto bismol for his epigastric pain. He complains of heartburn and reflux symptoms couple times a week and will take tums or something OTC for this , he he takes ranitidine. Patient denies any recent weight loss. Past Med Surg Social Fam HX - Past Medical History Source: patient Medical history: cancer (head and neck cancer/Rt), COPD, coronary artery disease , GI bleed, hyperlipidemia, hypertension, myocardial infarction, thyroid disease , other Psychiatric history: no psych history - Past Surgical History Surgical History: cancer surgery (G tube, radical neck - Rt), cholecystectomy, coronary bypass (CABG), tracheostomy (G tube, radical neck), other (peg) - Social History Smoking Status: Former smoker Smokeless Tobacco Status: No Alcohol use: none Drug use: none Medications and Allergies Acetaminophen [Tylenol] 650 tab PO Q6HR PRN 04/02/15 [History] Albuterol Sulfate [Albuterol Inhaler] 2 puff IH Q6HR PRN 04/02/15 [History] Magnesium Hydroxide [Milk of Magnesia] 15 ml PO BID PRN 04/02/15 [History] Morphine Sulfate 40 mg PO Q6H PRN 09/01/15 [History] Potassium Chloride Elixir [Potassium Chloride] 20 meq GTUBE DAILY 30 Days [Rx] Lactose-Reduced Food [Ensure Liquid] 5 bottle PO DAILY 05/26/16 [History] Levothyroxine [Synthroid] 88 mcg PO DAILY 05/26/16 [History] Lisinopril [Zestril] 5 mg PO DAILY 05/26/16 [History] Ranitidine HCl [Acid Director Ship] 150 mg PO BID 05/26/16 [History] Allergies ezetimibe [From Zetia] Allergy (Verified 05/26/16 19:37) Swelling of Lip/Tongue/Throat Review of Systems All systems PM: reviewed and no additional remarkable complaints except as stated All systems PM: A 10-system review of systems was performed and is negative for pertinent findings except as documented above in the HPI. General Surgery Exam Initial Vital Signs Temp Pulse Resp BP Pulse Ox 98.6 F 112 18 180/92 93 L 05/26/16 16:54 05/26/16 16:54 05/26/16 16:54 05/26/16 16:54 05/26/16 16:54 - General physical appearance no distress, no pain, chronically ill - Eyes PERRL, normal ocular movement - ENT dry mucosa, atraumatic, normocephalic - Neck trachea midline, other (signs previous right radical neck surgery) - Respiratory normal expansion, clear to auscultation - Cardiovascular Cardiovascular exam: Present: RRR - Abdomen Abdomen general surgery: Present: bowel sounds present, soft, tender (moderate epigastric pain, no rebound or guarding) - Integumentary Integumentary general surgery: Present: warm and dry, other (multiple tatoos) - Neurologic Present: CN 2-12 grossly intact - Musculoskeletal Present: normal posture - Psychiatric Psychiatric general surgery: Present: A&Ox3 Exam Initial Vital Signs Temp Pulse Resp BP Pulse Ox 98.6 F 112 18 180/92 93 L 05/26/16 16:54 05/26/16 16:54 05/26/16 16:54 05/26/16 16:54 05/26/16 16:54 Results - Labs 05/27/16 11:24 05/27/16 04:15 Vital Signs Temp Pulse Resp BP Pulse Ox 05/27/16 11:29 99.1 F 104 15 182/93 99 05/27/16 07:38 98.1 F 93 15 193/93 98 05/27/16 05:13 176/101 05/27/16 03:18 99 F 108 18 185/103 98 05/26/16 22:08 99 F 102 18 163/74 98 05/26/16 21:25 98.6 F 18 173/83 05/26/16 20:41 95 18 173/83 98 05/26/16 16:54 98.6 F 112 18 180/92 93 L Intake and Output 05/26/16 05/27/16 05/27/16 23:59 07:59 15:59 Intake Total 2550 / 2550 200 / 200 1100 / 1100 Output Total 200 / 200 0 / 0 Balance 2550 / 2550 0 / 0 1100 / 1100 Intake: IV Fluids 2550 / 2550 200 / 200 1100 / 1100 0.9 % Sodium Chloride , 1999 / 1999 1000 / 1000 000 ML @ 100 mls/hr IVC . Q10H [facility] Rx#:[id number] Protonix 40 MG In 0.9 % 100 / 100 100 / 100 Sodium Chloride (Mini-Bag +) 100 ML @ 20 mls/hr IVC .Q5H [facility] Rx#: [id number] Levaquin 750mg/150 mL 750 150 / 150 mg In 150 ml @ 100 mls/ hr IVPB ONCE ONE Rx#: [id number] Protonix 80 MG In 0.9 % 50 / 50 Sodium Chloride 50 ML @ 600 mls/hr IVPB ONCE ONE Rx#:[id number] Zosyn 3.375 GM In 100 / 100 100 / 100 Dextrose 5% (Minibag+) 100 ML 100 ML @ 25 mls/hr IVPB Q8H [facility] Rx#: [id number] Vancocin 1,000 MG In 250 / 250 Dextrose 5% 250 ML @ 167 mls/hr IVPB ONCE ONE Rx#: [id number] Oral 0 / 0 0 / 0 Output: Urine 200 / 200 0 / 0 Other: Meal Breakfast Percent of Meal Consumed 0% Stool Characteristics Normal for Patient Weight 72.575 kg Blood Glucose* 115 100 All Lab Results (24 Hours) 05/26/16 05/26/16 05/26/16 Range/Units 15:49 17:32 17:32 WBC 24.5 H (4.3-11.1) K/mcL RBC 5.18 (4.19-5.50) M/mcL Hgb 15.8 (12.9-16.9) g/dL Hct 45.6 (37.5-50.1) % MCV 88.0 (83.0-100.0) fL MCH 30.5 (28.0-33.3) pg MCHC 34.6 (31.6-35.5) g/dL RDW 13.0 (11.5-14.5) % Plt Count 400 (140-400) K/mcL MPV 9.9 (9.4-12.4) fL Immature Gran % 0.5 (0-4) % Seg Neutrophils % 93.8 % Lymphocytes % 3.5 % Monocytes % 2.0 % Eosinophils % 0.0 % Basophils % 0.2 % Neutrophils # 23.0 H (1.6-8.9) K/mcL Lymphocytes # 0.9 (0.6-4.6) K/mcL Monocytes # 0.5 (0.0-1.3) K/mcL Eosinophils # 0.0 (0.0-0.6) K/mcL Basophils # 0.1 (0.0-0.2) K/mcL Platelet Estimate Normal (Normal) PT 11.3 (9.4-12.1) Seconds INR 1.0 APTT 26.0 (26.0-36.0) Seconds Sodium (136-145) mEq/L Potassium (3.5-4.5) mEq/L Chloride (98-109) mEq/L Carbon Dioxide (19-29) mEq/L BUN (8-26) mg/dL Creatinine (0.72-1.25) mg/dL Est GFR ( Amer) (> 60) Est GFR (Non-Af Amer) (> 60) BUN/Creatinine Ratio (6-26) Glucose (70-99) mg/dL Calculated Osmolality (280-300) Lactic Acid (0.5-2.2) mmol/L Calcium (8.6-10.8) mg/dL Phosphorus (2.3-4.7) mg/dL Magnesium (1.6-2.6) mg/dL Total Bilirubin (0.2-1.2) mg/dL Direct Bilirubin (0.0-0.5) mg/dL Indirect Bilirubin (0.0-1.2) mg/dL AST (5-34) Units/L ALT (0-55) Units/L Alkaline Phosphatase (38-126) Units/L Troponin I (0-0.03) ng/mL Serum Total Protein (6.0-8.3) g/dL Albumin (3.5-5.0) g/dL Globulin (2.4-3.5) g/dL Albumin/Globulin Ratio (1.1-2.2) Urine Color Yellow (Yellow) Urine Clarity Clear (Clear) Urine pH 8.0 (5.0-8.0) pH Units Ur Specific [place] 1.021 (1.010-1.025) Urine Protein 30 H (Neg-Trace) mg/dL Urine Glucose (UA) 100 H (Normal) mg/dL Urine Ketones Negative (Negative) mg/dL Urine Blood Negative (Negative) Urine Nitrite Negative (Negative) Urine Bilirubin Negative (Negative) Urine Urobilinogen Normal (Normal) mg/dL Ur Leukocyte Esterase Negative (Negative) Urine Microscopic RBC 5-15 H (0-3) per hpf Urine Microscopic WBC 0-3 (0-3) per hpf Ur Squamous Epith Cells Many H (None-Few) per lpf Urine Bacteria None Seen (None-Few) per hpf Hyaline Casts None Seen (None-Few) per lpf Ur Culture Indicated? NO (NO) Specimen Rejected Blood Type Antibody Screen 05/26/16 05/26/16 05/26/16 Range/Units 17:32 17:32 17:32 WBC (4.3-11.1) K/mcL RBC (4.19-5.50) M/mcL Hgb (12.9-16.9) g/dL Hct (37.5-50.1) % MCV (83.0-100.0) fL MCH (28.0-33.3) pg MCHC (31.6-35.5) g/dL RDW (11.5-14.5) % Plt Count (140-400) K/mcL MPV (9.4-12.4) fL Immature Gran % (0-4) % Seg Neutrophils % % Lymphocytes % % Monocytes % % Eosinophils % % Basophils % % Neutrophils # (1.6-8.9) K/mcL Lymphocytes # (0.6-4.6) K/mcL Monocytes # (0.0-1.3) K/mcL Eosinophils # (0.0-0.6) K/mcL Basophils # (0.0-0.2) K/mcL Platelet Estimate (Normal) PT (9.4-12.1) Seconds INR APTT (26.0-36.0) Seconds Sodium 140 (136-145) mEq/L Potassium 4.1 (3.5-4.5) mEq/L Chloride 104 (98-109) mEq/L Carbon Dioxide 24 (19-29) mEq/L BUN 31 H (8-26) mg/dL Creatinine 1.13 (0.72-1.25) mg/dL Est GFR ( Amer) > 60 (> 60) Est GFR (Non-Af Amer) > 60 (> 60) BUN/Creatinine Ratio 27 H (6-26) Glucose 148 H (70-99) mg/dL Calculated Osmolality 299 (280-300) Lactic Acid (0.5-2.2) mmol/L Calcium 10.4 (8.6-10.8) mg/dL Phosphorus 1.8 L (2.3-4.7) mg/dL Magnesium 2.2 (1.6-2.6) mg/dL Total Bilirubin 0.6 (0.2-1.2) mg/dL Direct Bilirubin 0.2 (0.0-0.5) mg/dL Indirect Bilirubin 0.4 (0.0-1.2) mg/dL AST 22 (5-34) Units/L ALT 17 (0-55) Units/L Alkaline Phosphatase 71 (38-126) Units/L Troponin I 0.01 (0-0.03) ng/mL Serum Total Protein 8.8 H (6.0-8.3) g/dL Albumin 3.9 (3.5-5.0) g/dL Globulin 4.9 H (2.4-3.5) g/dL Albumin/Globulin Ratio 0.8 L (1.1-2.2) Urine Color (Yellow) Urine Clarity (Clear) Urine pH (5.0-8.0) pH Units Ur Specific [place] (1.010-1.025) Urine Protein (Neg-Trace) mg/dL Urine Glucose (UA) (Normal) mg/dL Urine Ketones (Negative) mg/dL Urine Blood (Negative) Urine Nitrite (Negative) Urine Bilirubin (Negative) Urine Urobilinogen (Normal) mg/dL Ur Leukocyte Esterase (Negative) Urine Microscopic RBC (0-3) per hpf Urine Microscopic WBC (0-3) per hpf Ur Squamous Epith Cells (None-Few) per lpf Urine Bacteria (None-Few) per hpf Hyaline Casts (None-Few) per lpf Ur Culture Indicated? (NO) Specimen Rejected Blood Type A POSITIVE Antibody Screen NEGATIVE 05/26/16 05/26/16 05/26/16 Range/Units 17:56 18:39 20:51 WBC (4.3-11.1) K/mcL RBC (4.19-5.50) M/mcL Hgb (12.9-16.9) g/dL Hct (37.5-50.1) % MCV (83.0-100.0) fL MCH (28.0-33.3) pg MCHC (31.6-35.5) g/dL RDW (11.5-14.5) % Plt Count (140-400) K/mcL MPV (9.4-12.4) fL Immature Gran % (0-4) % Seg Neutrophils % % Lymphocytes % % Monocytes % % Eosinophils % % Basophils % % Neutrophils # (1.6-8.9) K/mcL Lymphocytes # (0.6-4.6) K/mcL Monocytes # (0.0-1.3) K/mcL Eosinophils # (0.0-0.6) K/mcL Basophils # (0.0-0.2) K/mcL Platelet Estimate (Normal) PT (9.4-12.1) Seconds INR APTT (26.0-36.0) Seconds Sodium (136-145) mEq/L Potassium (3.5-4.5) mEq/L Chloride (98-109) mEq/L Carbon Dioxide (19-29) mEq/L BUN (8-26) mg/dL Creatinine (0.72-1.25) mg/dL Est GFR ( Amer) (> 60) Est GFR (Non-Af Amer) (> 60) BUN/Creatinine Ratio (6-26) Glucose (70-99) mg/dL Calculated Osmolality (280-300) Lactic Acid 2.2 1.4 (0.5-2.2) mmol/L Calcium (8.6-10.8) mg/dL Phosphorus (2.3-4.7) mg/dL Magnesium (1.6-2.6) mg/dL Total Bilirubin (0.2-1.2) mg/dL Direct Bilirubin (0.0-0.5) mg/dL Indirect Bilirubin (0.0-1.2) mg/dL AST (5-34) Units/L ALT (0-55) Units/L Alkaline Phosphatase (38-126) Units/L Troponin I (0-0.03) ng/mL Serum Total Protein (6.0-8.3) g/dL Albumin (3.5-5.0) g/dL Globulin (2.4-3.5) g/dL Albumin/Globulin Ratio (1.1-2.2) Urine Color (Yellow) Urine Clarity (Clear) Urine pH (5.0-8.0) pH Units Ur Specific Spark[place] (1.010-1.025) Urine Protein (Neg-Trace) mg/dL Urine Glucose (UA) (Normal) mg/dL Urine Ketones (Negative) mg/dL Urine Blood (Negative) Urine Nitrite (Negative) Urine Bilirubin (Negative) Urine Urobilinogen (Normal) mg/dL Ur Leukocyte Esterase (Negative) Urine Microscopic RBC (0-3) per hpf Urine Microscopic WBC (0-3) per hpf Ur Squamous Epith Cells (None-Few) per lpf Urine Bacteria (None-Few) per hpf Hyaline Casts (None-Few) per lpf Ur Culture Indicated? (NO) Specimen Rejected Hemolyzed Blood Type Antibody Screen 05/26/16 05/27/16 05/27/16 Range/Units 22:34 04:15 04:15 WBC 18.8 H (4.3-11.1) K/mcL RBC 3.88 L (4.19-5.50) M/mcL Hgb 13.2 D 12.3 L (12.9-16.9) g/dL Hct 38.5 35.0 L (37.5-50.1) % MCV 90.2 (83.0-100.0) fL MCH 31.7 (28.0-33.3) pg MCHC 35.1 (31.6-35.5) g/dL RDW 13.2 (11.5-14.5) % Plt Count 287 (140-400) K/mcL MPV 10.4 (9.4-12.4) fL Immature Gran % 1.4 (0-4) % Seg Neutrophils % 86.5 % Lymphocytes % 7.4 % Monocytes % 4.4 % Eosinophils % 0.1 % Basophils % 0.2 % Neutrophils # 16.2 H (1.6-8.9) K/mcL Lymphocytes # 1.4 (0.6-4.6) K/mcL Monocytes # 0.8 (0.0-1.3) K/mcL Eosinophils # 0.0 (0.0-0.6) K/mcL Basophils # 0.0 (0.0-0.2) K/mcL Platelet Estimate (Normal) PT (9.4-12.1) Seconds INR APTT (26.0-36.0) Seconds Sodium 140 (136-145) mEq/L Potassium 3.6 (3.5-4.5) mEq/L Chloride 112 H (98-109) mEq/L Carbon Dioxide 19 (19-29) mEq/L BUN 22 (8-26) mg/dL Creatinine 0.89 (0.72-1.25) mg/dL Est GFR ( Amer) > 60 (> 60) Est GFR (Non-Af Amer) > 60 (> 60) BUN/Creatinine Ratio 25 (6-26) Glucose 99 (70-99) mg/dL Calculated Osmolality 293 (280-300) Lactic Acid (0.5-2.2) mmol/L Calcium 9.0 (8.6-10.8) mg/dL Phosphorus 1.9 L (2.3-4.7) mg/dL Magnesium (1.6-2.6) mg/dL Total Bilirubin (0.2-1.2) mg/dL Direct Bilirubin (0.0-0.5) mg/dL Indirect Bilirubin (0.0-1.2) mg/dL AST (5-34) Units/L ALT (0-55) Units/L Alkaline Phosphatase (38-126) Units/L Troponin I (0-0.03) ng/mL Serum Total Protein (6.0-8.3) g/dL Albumin (3.5-5.0) g/dL Globulin (2.4-3.5) g/dL Albumin/Globulin Ratio (1.1-2.2) Urine Color (Yellow) Urine Clarity (Clear) Urine pH (5.0-8.0) pH Units Ur Specific Sparkman (1.010-1.025) Urine Protein (Neg-Trace) mg/dL Urine Glucose (UA) (Normal) mg/dL Urine Ketones (Negative) mg/dL Urine Blood (Negative) Urine Nitrite (Negative) Urine Bilirubin (Negative) Urine Urobilinogen (Normal) mg/dL Ur Leukocyte Esterase (Negative) Urine Microscopic RBC (0-3) per hpf Urine Microscopic WBC (0-3) per hpf Ur Squamous Epith Cells (None-Few) per lpf Urine Bacteria (None-Few) per hpf Hyaline Casts (None-Few) per lpf Ur Culture Indicated? (NO) Specimen Rejected Blood Type Antibody Screen 05/27/16 Range/Units 11:24 WBC (4.3-11.1) K/mcL RBC (4.19-5.50) M/mcL Hgb 12.6 L (12.9-16.9) g/dL Hct 35.8 L (37.5-50.1) % MCV (83.0-100.0) fL MCH (28.0-33.3) pg MCHC (31.6-35.5) g/dL RDW (11.5-14.5) % Plt Count (140-400) K/mcL MPV (9.4-12.4) fL Immature Gran % (0-4) % Seg Neutrophils % % Lymphocytes % % Monocytes % % Eosinophils % % Basophils % % Neutrophils # (1.6-8.9) K/mcL Lymphocytes # (0.6-4.6) K/mcL Monocytes # (0.0-1.3) K/mcL Eosinophils # (0.0-0.6) K/mcL Basophils # (0.0-0.2) K/mcL Platelet Estimate (Normal) PT (9.4-12.1) Seconds INR APTT (26.0-36.0) Seconds Sodium (136-145) mEq/L Potassium (3.5-4.5) mEq/L Chloride (98-109) mEq/L Carbon Dioxide (19-29) mEq/L BUN (8-26) mg/dL Creatinine (0.72-1.25) mg/dL Est GFR ( Amer) (> 60) Est GFR (Non-Af Amer) (> 60) BUN/Creatinine Ratio (6-26) Glucose (70-99) mg/dL Calculated Osmolality (280-300) Lactic Acid (0.5-2.2) mmol/L Calcium (8.6-10.8) mg/dL Phosphorus (2.3-4.7) mg/dL Magnesium (1.6-2.6) mg/dL Total Bilirubin (0.2-1.2) mg/dL Direct Bilirubin (0.0-0.5) mg/dL Indirect Bilirubin (0.0-1.2) mg/dL AST (5-34) Units/L ALT (0-55) Units/L Alkaline Phosphatase (38-126) Units/L Troponin I (0-0.03) ng/mL Serum Total Protein (6.0-8.3) g/dL Albumin (3.5-5.0) g/dL Globulin (2.4-3.5) g/dL Albumin/Globulin Ratio (1.1-2.2) Urine Color (Yellow) Urine Clarity (Clear) Urine pH (5.0-8.0) pH Units Ur Specific Sparkman (1.010-1.025) Urine Protein (Neg-Trace) mg/dL Urine Glucose (UA) (Normal) mg/dL Urine Ketones (Negative) mg/dL Urine Blood (Negative) Urine Nitrite (Negative) Urine Bilirubin (Negative) Urine Urobilinogen (Normal) mg/dL Ur Leukocyte Esterase (Negative) Urine Microscopic RBC (0-3) per hpf Urine Microscopic WBC (0-3) per hpf Ur Squamous Epith Cells (None-Few) per lpf Urine Bacteria (None-Few) per hpf Hyaline Casts (None-Few) per lpf Ur Culture Indicated? (NO) Specimen Rejected Blood Type Antibody Screen - Imaging CT scan - abdomen: report reviewed, image reviewed CT scan - pelvis: report reviewed, image reviewed Consult Discharge Plan - Plan Referrals: [facility] [Outside] - 06/09/16 11:15 am
[2016-05-27] MEDS ORDERED: Pantoprazole 40 MG VIAL ONE (17:53)
[2016-05-27] MEDS: Levofloxacin 750 MG/150 ML 750 MG/150 ML BAG IVPB SCH (18:16)
[2016-05-28] MEDS: *HR* Morphine 2 MG/ML SYRINGE IVP PRN (03:12)
[2016-05-28] MEDS: Pantoprazole 40 MG in 0.9 % Sodium Chloride Mini Bag 100 ML IVC SCH ×2 (03:17→08:57)
[2016-05-28] MEDS: Piperacillin/Tazobactam 3.375 GM in D5% in Water (Mini-Bag+) 100 ML IVPB SCH ×3 (06:00→22:58)
[2016-05-28 07:07] LABS: Basophils % 0.3 %; Eosinophils % 0.2 %; Hematocrit 37.1 % (37.5-50.1); Hemoglobin 12.8 g/dL (12.9-16.9); Immature Granulocytes % 0.4 % (0-4); Lymphocytes # 1.1 K/mcL (0.6-4.6); Lymphocytes % 9.1 %; Mean Corpuscular HGB Conc 34.5 g/dL (31.6-35.5); Mean Corpuscular Hemoglobin 31.3 pg (28.0-33.3); Mean Corpuscular Volume 90.7 fL (83.0-100.0); Mean Platelet Volume 10.2 fL (9.4-12.4); Monocytes # 0.9 K/mcL (0.0-1.3); Monocytes % 7.7 %; Neutrophils # 9.7 K/mcL (1.6-8.9); Platelet Count 258 K/mcL (140-400); Red Blood Count 4.09 M/mcL (4.19-5.50); Red Cell Distribution Width 13.1 % (11.5-14.5); Segmented Neutrophils % 82.3 %
[2016-05-28 07:28] LABS: Lipase 25 Units/L (8-78)
[2016-05-28 07:31] LABS: Amylase 41 Units/L (25-125)
[2016-05-28 07:32] LABS: BUN/Creatinine Ratio 19 (6-26); Blood Urea Nitrogen 16 mg/dL (8-26); Calcium 9.3 mg/dL (8.6-10.8); Carbon Dioxide 17 mEq/L (19-29); Chloride 111 mEq/L (98-109); Glucose 93 mg/dL (70-99); Osmolality,Calculated 285 (280-300); Sodium 137 mEq/L (136-145); eGFR For African Americans > 60 (> 60); eGFR For Non-African Americans > 60 (> 60)
[2016-05-28] MEDS ORDERED: Lidocaine -MPF 2% 2 ML VIAL ONE (08:54)
--- NOTE | 2016-05-28 09:20 | Anesthesia Evaluation PreOp ---
Date of Encounter: 05/28/16 Time of Encounter: 09:18 - Past History Planned Operation: EGD re: coffee ground emesis Cardiac History: [place] ("greater than 3 yrs ago" per chart), HTN, Hyperlipidemia, Cardiac Surgery (CABG x 4v) Pulmonary History: Former smoker, COPD, Other (Recent dx of likely pneumonia. CXR suggestive of LLL pneumonia vs Fibrosis) [employer]ED [employer]IVER History: Denies Any Significant HX Other Medical History: Thyroid, GERD (GIBleed x 2 week hx of melena, coffee ground emesis), Other (Sepsis of unspecified organism this hospitalization. Hx of Head/Neck Ca s/p radical R neck dissection & PEG placement) Anesthesia History: No Prior Anesthetic Complications, Past Anesthesia (PEG, R- radical right neck dissection. Lizeth, CABG, Tracheostomy, G-tube, RAdical neck dissection) Alcohol Use: none Drug use: none Medications and Allergies Acetaminophen [Tylenol] 650 tab PO Q6HR PRN 04/02/15 [History] Albuterol Sulfate [Albuterol Inhaler] 2 puff IH Q6HR PRN 04/02/15 [History] Magnesium Hydroxide [Milk of Magnesia] 15 ml PO BID PRN 04/02/15 [History] Morphine Sulfate 40 mg PO Q6H PRN 09/01/15 [History] Potassium Chloride Elixir [Potassium Chloride] 20 meq GTUBE DAILY 30 Days [Rx] Lactose-Reduced Food [Ensure Liquid] 5 bottle PO DAILY 05/26/16 [History] Levothyroxine [Synthroid] 88 mcg PO DAILY 05/26/16 [History] Lisinopril [Zestril] 5 mg PO DAILY 05/26/16 [History] Ranitidine HCl [[employer]] 150 mg PO BID 05/26/16 [History] Allergies ezetimibe [From Zetia] Allergy (Verified 05/26/16 19:37) Swelling of Lip/Tongue/Throat - Meds/Allergy Pre-op Review Medications Reviewed: Yes Allergies Reviewed: Yes Beta Blockers on Current Med List: No Anesthesia Results - Labs 05/28/16 06:26 05/28/16 06:26 Laboratory Results Impressions Chest X-Ray 05/26/16 17:16 IMPRESSION: Possible early left lower lobe pneumonia versus chronic fibrosis D/ / Monster Keyes MD / Monster Keyes MD Interpreting Provider: Monster Keyes MD Abdomen/Pelvis CT 05/26/16 17:19 IMPRESSION: No acute abnormality identified. Specifically, no obvious source of patient's GI bleed detected. With continued clinical concern, advise endoscopy for further evaluation. D/ / Rohit Roblero MD / Rohit Roblero MD Interpreting Provider: Rohit Roblero MD - Imaging EKG: image reviewed Anesthesia Exam Vital Signs Temp Pulse Resp BP Pulse Ox 05/28/16 09:04 110 14 96 05/28/16 09:00 98 05/28/16 07:08 98.4 F 100 16 154/91 95 05/28/16 03:53 98.7 F 92 16 150/113 98 05/28/16 00:17 98.2 F 91 16 168/99 97 05/27/16 21:46 98.6 F 103 16 157/54 95 05/27/16 15:17 98.5 F 109 16 170/102 97 05/27/16 11:29 99.1 F 104 15 182/93 99 Intake and Output 05/27/16 05/28/16 05/28/16 23:59 07:59 15:59 Intake Total 200 / 200 200 / 200 950 / 950 Balance 200 / 200 200 / 200 950 / 950 Intake: IV Fluids 200 / 200 200 / 200 950 / 950 0.9 % Sodium Chloride 1, 850 / 850 000 ML @ 100 mls/hr IVC . 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 Gee Galo MD
--- NOTE | 2016-05-28 10:41 | Anesthesia Evaluation Post Op ---
Date of Encounter: 05/28/16 Time of Encounter: 10:05 - Vital Signs Vital Signs: Vital Signs/O2 Sat/Glucose, Most Current Temp Pulse Resp BP Pulse Ox 05/28/16 10:15 97.9 F 106 20 145/78 99 05/28/16 10:00 117 24 151/76 100 05/28/16 09:04 110 14 96 05/28/16 09:00 98 05/28/16 07:08 98.4 F 100 16 154/91 95 - Lungs Lungs: Clear Ascult./Percussion - Airway Airway: Non-obstructed - Cardiovascular Regular Rate, Baseline Rhythm - Mental Status Mental Status: Alert & Oriented, Answers Appropriately - Pain Pain Scale: 0 Pain Scale used: Numeric (1 - 10) - Nausea Vomiting Nausea Vomiting: Not Present - Hydration Hydration: NPO, Has not voided - Discharge PostOp Status: Transfer Patient to floor Anes Supervising Prov Stmt: Pt seen/evaluated, VSS and pt has met criteria for discharge to home. - MD Clover
--- NOTE | 2016-05-28 10:43 | Internal Med Progress Note ---
<Loraine Ritter - Last Filed: 05/28/16 11:03> Date of Encounter: 05/28/16 Time of Encounter: 10:43 - Assessment and plan (1) Sepsis Current Visit: Yes Status: Acute Assessment and plan: Likely secondary to pneumonia, leukocytosis, tachycardia, lactate 3.2 at [place] prior to arrival WBC: 11.8 today UA negative Blood cultures pending, sputum culture ordered On Levaquin and Zosyn for antibiotic treatment Qualifiers: Sepsis type: sepsis due to unspecified organism Qualified Code(s): A41.9 - Sepsis, unspecified organism (2) Pneumonia Current Visit: Yes Status: Acute Assessment and plan: CAP, with concern for aspiration with recent vomiting, continues to have rhonchi bilaterally Unproductive cough x2 weeks CXR demonstrates LLL pneumonia vs chronic fibrosis Continue home prn albuterol neb treatment Levaquin and Zosyn for antibiotic treatment Leukocytosis improving. WBC: 11.8 today (18.8 yesterday) Qualifiers: Pneumonia type: due to unspecified organism Laterality: left Lung location: lower lobe of lung Qualified Code(s): J18.9 - Pneumonia, unspecified organism (3) GI bleed Current Visit: Yes Status: Acute Assessment and plan: Melena, coffee-ground emesis and abdominal pain for 2 weeks Reported positive gastric occult blood odne at [place] prior to arrival tonight Hgb 12.8 (previous 15.8, 13.2, 12.3, 12.6) Surgery consulted Protonix drip Carafate 1gm po solution qid NPO diet except medication EGD today demonstrated Erythematous duodenopathy, gastritis; Upper GI series per Surgery Will continue to monitor Qualifiers: GI bleed type/associated pathology: melena Qualified Code(s): K92.1 - Melena (4) HTN (hypertension) Current Visit: Yes Status: Acute Assessment and plan: BP 145/78 today Home medication continued Hydralazine 10mg Q6H prn for hypertension Will continue to monitor and adjust medications as needed Qualifiers: Hypertension type: essential hypertension Qualified Code(s): I10 - Essential (primary) hypertension (5) CAD (coronary artery disease) Current Visit: Yes Status: Chronic Assessment and plan: s/p CABGx4, Hx of [place] (>3 years ago) Not on antiplatelet therapy Qualifiers: Coronary Disease-Associated Artery/Lesion type: bypass graft [place] vs. transplanted heart: [place] heart Associated angina: without angina Qualified Code(s): I25.810 - Atherosclerosis of coronary artery bypass graft(s) without angina pectoris (6) History of throat cancer Current Visit: Yes Status: Chronic Assessment and plan: s/p radical neck surgery and PEG tube placement in 2007 - Subjective Interval history: Pt was taken for EGD today by Dr. Culver and had just returned to his room. Abdominal pain is improved on current pain regimen. No other complaints at this time. - Constitutional Vitals: Temp Pulse Resp BP Pulse Ox 97.9 F 106 20 145/78 99 05/28/16 10:15 05/28/16 10:15 05/28/16 10:15 05/28/16 10:15 05/28/16 10:15 General appearance: Present: cooperative, A&O X 3, no acute distress, underweight - Head Head exam: Present: atraumatic, normocephalic - Eye Eye exam: Present: PERRL, conjuntiva pink, sclera anicteric - ENT ENT exam: Present: mucous membranes moist - Neck Neck exam general surgery: Present: supple, trachea midline Additional comments: S/p radical neck surgery in 2007 due to throat cancer - Respiratory Respiratory exam: Present: rhonchi (Bilaterally). Absent: accessory muscle use - Cardiovascular Cardiovascular exam: Present: +S1, +S2, tachycardia - GI/Abdominal GI/Abdominal exam: Present: normal bowel sounds, soft, tenderness (Epigastric). Absent: guarding, rebound, rigid Additional comments: Peg tube in place without erythema or drainage surrounding - Extremities Exam Extremities exam: Present: warm, radial pulses palpable and symetrical. Absent : calf tenderness, cyanotic, pedal edema - Neurological Exam Neurological exam: Present: alert, CN II-XII intact, oriented X3, no focal deficits. Absent: pronater drift, facial droop, speech deficit - Skin Skin exam: Present: dry, intact Internal Medicine: Result - Labs CBC & Chem 7: 05/28/16 06:26 05/28/16 06:26 Labs: Short CBC 05/27/16 05/28/16 Range/Units 11:24 06:26 WBC 11.8 H (4.3-11.1) K/mcL Hgb 12.6 L 12.8 L (12.9-16.9) g/dL Hct 35.8 L 37.1 L (37.5-50.1) % Plt Count 258 (140-400) K/mcL Neutrophils # 9.7 H (1.6-8.9) K/mcL BMP 05/28/16 06:26 Sodium 137 Potassium 4.0 Chloride 111 H Carbon Dioxide 17 L BUN 16 Creatinine 0.86 Glucose 93 Calcium 9.3 - ABG Interpretation ABG results: PT/INR, D-dimer PT 11.3 Seconds (9.4-12.1) 05/26/16 17:32 Consult Discharge Plan - Plan Referrals: [facility] [Outside] - 06/09/16 11:15 am <Herson Dia - Last Filed: 05/28/16 14:44> Date of Encounter: 05/28/16 - Assessment and plan (1) Abdominal pain Current Visit: Yes Status: Acute Qualifiers: Abdominal location: epigastric Qualified Code(s): R10.13 - Epigastric pain (2) Coffee ground emesis Current Visit: Yes Status: Acute (3) GI bleed Current Visit: Yes Status: Acute Qualifiers: GI bleed type/associated pathology: melena Qualified Code(s): K92.1 - Melena (4) HTN (hypertension) Current Visit: Yes Status: Acute Qualifiers: Hypertension type: essential hypertension Qualified Code(s): I10 - Essential (primary) hypertension (5) Hypophosphatemia Current Visit: Yes Status: Acute (6) CAD (coronary artery disease) Current Visit: Yes Status: Chronic Qualifiers: Coronary Disease-Associated Artery/Lesion type: bypass graft [place] vs. 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 (8) Sepsis Current Visit: Yes Status: Acute Qualifiers: Sepsis type: sepsis due to unspecified organism Qualified Code(s): A41.9 - Sepsis, unspecified organism (9) Pneumonia Current Visit: Yes Status: Acute Qualifiers: Pneumonia type: due to unspecified organism Laterality: left Lung location: lower lobe of lung Qualified Code(s): J18.9 - Pneumonia, unspecified organism - Constitutional Vitals: Temp Pulse Resp BP Pulse Ox 97.9 F 106 20 145/78 99 05/28/16 10:15 05/28/16 10:15 05/28/16 10:15 05/28/16 10:15 05/28/16 10:15 Internal Medicine: Result - Labs CBC & Chem 7: 05/28/16 06:26 05/28/16 06:26 Labs: Short CBC 05/28/16 Range/Units 06:26 WBC 11.8 H (4.3-11.1) K/mcL Hgb 12.8 L (12.9-16.9) g/dL Hct 37.1 L (37.5-50.1) % Plt Count 258 (140-400) K/mcL Neutrophils # 9.7 H (1.6-8.9) K/mcL BMP 05/28/16 06:26 Sodium 137 Potassium 4.0 Chloride 111 H Carbon Dioxide 17 L BUN 16 Creatinine 0.86 Glucose 93 Calcium 9.3 - ABG Interpretation ABG results: PT/INR, D-dimer PT 11.3 Seconds (9.4-12.1) 05/26/16 17:32 - Impressions Impressions Upper GI Series 05/28/16 10:54 IMPRESSION: 1. No evidence of obstruction at the level of the pylorus. 2. Small hiatal hernia. 3. Spontaneous gastroesophageal reflux identified. D/ : / 05/28/2016 11:57:06 Parris Pitts MD / Masha Garza Interpreting Provider: Parris Pitts MD - Attending Attestation I examined this patient and my medical decision-making was reviewed with the Resident Physician. I agree with the documented findings, disposition and treatment plan as described except to the extent set forth below. Mr. Francis is currently admitted for acute abdominal pain and acute GI bleed as well as pneumonia. He is high risk due to the potential of hemodynamic compromise with GI bleed and respiratory compromise with pneumonia. Mr. Francis had EGD this AM. There was a question of pyloric obstruction but UGI negative. He feels hungry. No further bleeding. He says he has not slept well and would like something now. Exam Alert. Comfortable Heart reg and tachy Lungs dimished but clear Abd soft Current labs reviewed I/P 1. Acute presumed UGI bleed - H/H stable at this point 2. Hx oropharyngeal cancer s/p PEG Monitor H/H D/C planning. Further diagnoses and plan as above.
[2016-05-28] MEDS ORDERED: *HR* LORazepam 2 MG/ML VIAL IVP ONE ×2 (12:46→23:31)
[2016-05-28] MEDS: Levofloxacin 750 MG/150 ML 750 MG/150 ML BAG IVPB SCH (18:34)
[2016-05-28] MEDS: Ondansetron 4 MG/2 ML VIAL IVP PRN (20:47)
[2016-05-29] MEDS: *HR* Morphine 2 MG/ML SYRINGE IVP PRN (03:22)
[2016-05-29 05:38] LABS: BUN/Creatinine Ratio 20 (6-26); Blood Urea Nitrogen 23 mg/dL (8-26); Calcium 8.9 mg/dL (8.6-10.8); Carbon Dioxide 20 mEq/L (19-29); Chloride 114 mEq/L (98-109); Glucose 105 mg/dL (70-99); Osmolality,Calculated 298 (280-300); Potassium 3.3 mEq/L (3.5-4.5); Sodium 142 mEq/L (136-145); eGFR For African Americans > 60 (> 60); eGFR For Non-African Americans > 60 (> 60)
[2016-05-29 06:01] LABS: Basophils % 0.2 %; Eosinophils % 0.1 %; Hematocrit 35.2 % (37.5-50.1); Immature Granulocytes % 0.4 % (0-4); Immature Platelets 2.7 % (1.1-6.1); Lymphocytes # 0.8 K/mcL (0.6-4.6); Mean Corpuscular HGB Conc 34.1 g/dL (31.6-35.5); Mean Corpuscular Hemoglobin 30.9 pg (28.0-33.3); Mean Corpuscular Volume 90.7 fL (83.0-100.0); Mean Platelet Volume 9.6 fL (9.4-12.4); Monocytes # 0.8 K/mcL (0.0-1.3); Monocytes % 6.4 %; Neutrophils # 10.1 K/mcL (1.6-8.9); Platelet Count 238 K/mcL (140-400); Red Blood Count 3.88 M/mcL (4.19-5.50); Red Cell Distribution Width 13.2 % (11.5-14.5); Segmented Neutrophils % 85.9 %
[2016-05-29] MEDS: Piperacillin/Tazobactam 3.375 GM in D5% in Water (Mini-Bag+) 100 ML IVPB SCH (06:36)
[2016-05-29 07:06] VITALS: BP 145/72
--- NOTE | 2016-05-29 08:14 | Event Note ---
Date of Encounter: 05/28/16 Time of Encounter: 14:00 UGI shows contrast moves through pylorus without delay. Patient is only on tube feeds and therefore there shouldnt be a problem with tolerating tube feeds. Continue tube feeds as usual, continue PPI therapy and continue carafate for 1 month. General surgery signing off, please call if needed.
--- NOTE | 2016-05-29 15:08 | Discharge Summary ---
Date of Encounter: 05/29/16 Time of Encounter: 15:06 - Discharge Diagnosis (1) GI bleed Priority: Primary Status: Acute Qualifiers: GI bleed type/associated pathology: gastritis Gastritis type: acute gastritis Qualified Code(s): K29.01 - Acute gastritis with bleeding (2) Esophagitis, acute Priority: Primary Status: Acute (3) Pyloric stenosis, acquired Priority: Secondary Status: Chronic (4) Pneumonia Priority: Secondary Status: Acute Qualifiers: Pneumonia type: due to unspecified organism Laterality: left Lung location: lower lobe of lung Qualified Code(s): J18.9 - Pneumonia, unspecified organism (5) Clostridium difficile colitis Priority: Primary Status: Acute (6) Coffee ground emesis Priority: Primary Status: Acute (7) Abdominal pain Priority: Primary Status: Acute Qualifiers: Abdominal location: epigastric Qualified Code(s): R10.13 - Epigastric pain (8) Hypokalemia Priority: Secondary Status: Acute (9) HTN (hypertension) Priority: Secondary Status: Acute Qualifiers: Hypertension type: essential hypertension Qualified Code(s): I10 - Essential (primary) hypertension (10) Hypophosphatemia Priority: Secondary Status: Resolved (11) CAD (coronary artery disease) Priority: Secondary Status: Chronic Qualifiers: Coronary Disease-Associated Artery/Lesion type: bypass graft [place] vs. transplanted heart: [place] heart Associated angina: without angina Qualified Code(s): I25.810 - Atherosclerosis of coronary artery bypass graft(s) without angina pectoris (12) Oropharynx cancer Priority: Secondary Status: Chronic (13) Sepsis Priority: Secondary Status: Resolved Qualifiers: Sepsis type: sepsis due to unspecified organism Qualified Code(s): A41.9 - Sepsis, unspecified organism - Discharge Medications Prescriptions: Lansoprazole [Prevacid] 30 mg GTUBE BIDAC #3 capsule. Levofloxacin [Levaquin] 750 mg PO DAILY #1 tablet MetroNIDAZOLE [Flagyl] 500 mg PO TID #3 tablet Sucralfate [Carafate] 1 gm PO QIDAC #5 udc Home Medications: Acetaminophen [Tylenol] 650 tab PO Q6HR PRN 04/02/15 [History] Albuterol Sulfate [Albuterol Inhaler] 2 puff IH Q6HR PRN 04/02/15 [History] Magnesium Hydroxide [Milk of Magnesia] 15 ml PO BID PRN 04/02/15 [History] Morphine Sulfate 40 mg PO Q6H PRN 09/01/15 [History] Potassium Chloride Elixir [Potassium Chloride] 20 meq GTUBE DAILY 30 Days [Rx] Lactose-Reduced Food [Ensure Liquid] 5 bottle PO DAILY 05/26/16 [History] Levothyroxine [Synthroid] 88 mcg PO DAILY 05/26/16 [History] Lisinopril [Zestril] 5 mg PO DAILY 05/26/16 [History] Lansoprazole [Prevacid] 30 mg GTUBE BIDAC #3 capsule. 05/29/16 [Rx] Levofloxacin [Levaquin] 750 mg PO DAILY #1 tablet 05/29/16 [Rx] MetroNIDAZOLE [Flagyl] 500 mg PO TID #3 tablet 05/29/16 [Rx] Sucralfate [Carafate] 1 gm PO QIDAC #5 udc 05/29/16 [Rx] Allergies/Adverse Reactions: Allergies ezetimibe [From Zetia] Allergy (Verified 05/26/16 19:37) Swelling of Lip/Tongue/Throat Procedures/tests Complete & Pending: Procedures Performed prior 72 hours Category Date Time Status ECG 12 lead ECG [ECG] Routine Y 05/27/16 Completed Date of admission: 05/27/16 09:31 Primary care physician: PCP [place] Consults: 05/27/16 11:01 Consult to Surgery [CONS] Routine Consulting Provider: Fabienne Culver Reason for Consult: GI Bleed Call Completed: Yes Discharging clinician: Herson Dia Anticipated date of discharge: 05/29/16 - Patient Status Disposition: Home, Self-Care Condition: Good Functional capacity at discharge: independent ambulation Overall status at discharge: patient is progressing back to baseline - Discharge Instructions Follow Up With: [facility] [Outside] - 06/09/16 11:15 am - Diet and Activity Activity: increase activity as tolerated Diet: advance to your usual diet Hospital course: Mr. Francis is a 70 year old male with hx of laryngeal cancer s/p resection transferred from the [place] due to abdominal pain and melena. He had been having melena and hematemesis for approximately 2 weeks off and on. He also had a persistent cough for 2 weeks as well. He was subsequently admitted for further evaluation and treatment. Mr. Francis was admitted to [facility]. His tube feeds were held and his pain was controlled with IV pain medications. He was felt to have sepsis relating to pneumonia and was placed on IV abx. His blood pressure was controlled. He was seen by surgery and underwent EGD on 05/28 which showed gastritis and esophagitis. There appeared to be some pyloric stenosis as well. Following the EGD he had UGI and contrast went through to the duodenum. He had his tube feeds restarted at that point. Shortly after the EGD he developed significant diarrhea. He had history of C diff and stool sample returned positive. IV Flagyl was started. He did have some issues with vomiting if given too much tube feed but tolerated smaller amounts. On 05/29 he was feeling well. He was afebrile and had good BP. He was tolerating some tube feed. At that time he was felt stable for discharge home with [facility] follow up. He was given 2 prescriptions for each drug - one small one for local pharmacy and another one to fill at [facility] pharmacy. His was at beside and understood as well. - Time Spent with Patient Total time spent providing and/or coordinating discharge services: 41min - Constitutional Vitals: Temp Pulse Resp BP Pulse Ox 98.4 F 115 15 145/72 97 05/29/16 07:03 05/29/16 07:03 05/29/16 07:03 05/29/16 07:03 05/29/16 09:02 General appearance: Present: cooperative, A&O X 3, no acute distress, underweight - Head Head exam: Present: normocephalic - Eye Eye exam: Present: conjuntiva pink - ENT ENT exam: Present: mucous membranes dry - Respiratory Respiratory exam: Present: decreased breath sounds, CTAB - Cardiovascular Cardiovascular exam: Present: distant heart sounds, RRR. Absent: tachycardia - GI/Abdominal GI/Abdominal exam: Present: soft. Absent: mass, rebound, rigid, tenderness - Extremities Exam Extremities exam: Present: warm. Absent: pedal edema - Neurological Exam Neurological exam: Present: alert, oriented X3 - Skin Skin exam: Present: dry, warm. Absent: rash
[2016-05-29] MEDS ORDERED: Potassium Chloride Elixir 20 MEQ/15 ML UDC GTUBE ONE (15:44)
[2016-05-29] MEDS ORDERED: MetroNIDAZOLE 500 MG/100 ML 500 MG/100 ML BAG IVPB SCH (16:30)
== END 2016-05-29 16:34 | disposition home or self-care (01) | DRG 377 ==
LOC: 2NENU 16:51 → EMEROO 16:51 → SUATTDRO 20:19 → 2NENU 21:52
PROVIDERS: ADMIT Family Medicine; ATTEND Internal Medicine
PROC: ENDOEBX (2016-05-28 08:45)

== ENCOUNTER 2016-08-31 21:41 | Inpatient (IN) ==
[2016-08-31] MEDS ORDERED: 0.9 % Sodium Chloride 1,000 ML IVC ONE ×2 (21:46→23:50)
--- NOTE | 2016-08-31 21:50 | Emergency Department Note ---
Disposition Clinical Impression: Coffee ground emesis, Esophagitis, acute GI bleed Qualifiers: GI bleed type/associated pathology: unspecified gastrointestinal hemorrhage type Qualified Code(s): K92.2 - Gastrointestinal hemorrhage, unspecified Chest pain Qualifiers: Chest pain type: unspecified Qualified Code(s): R07.9 - Chest pain, unspecified Disposition: Admitted As Inpatient Condition: Undetermined Time of Disposition: 00:17 General Adult HPI - General Chief complaint: ED GI Bleed Stated complaint: CP/Coffee ground emesis Time Seen by Provider: 08/31/16 21:46 Source: patient Mode of arrival: ambulatory Limitations: no limitations Nursing Notes Reviewed: Yes Vital Signs Reviewed: Yes - History of Present Illness HPI Narrative: 70-year-old male with history of CAD, hypertension arrives to [facility] emergency department as a transfer from the [facility]. The patient was experiencing chest pain earlier today and went to the [facility]. The patient states that he did have some small amount of epigastric pain prior to going to the emergency department but did not think much of it. The patient did have a couple episodes of emesis [place] going to the emergency department. The patient states while he was being worked up for admission for chest pain he had one episode of light colored emesis. They performed a gastric occult which revealed positive results. The patient denies any abdominal pain at this time or nausea. The patient denies any previous episodes like this in the past. 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 The patient does have a PEG tube in placed and states that he only eats intermittently. Patient denies any other complaints at this time including fever, chills. Lab work on [facility] revealed negative troponin, negative BNP, unremarkable chemistry, hemoglobin of 13.1, hematocrit 38.2, platelets 292, no other acute findings. Onset (ago): hour(s) (4) Pain Scale: 0 Improves with: nothing Worsens with: nothing Associated symptoms: Reports: nausea/vomiting Treatments Prior to Arrival: none - Related Data Home Medications Medication Instructions Recorded Confirmed Acetaminophen [Tylenol] 650 tab PO Q6HR PRN 04/02/15 08/31/16 Albuterol Sulfate [Albuterol 2 puff IH Q6HR PRN 04/02/15 08/31/16 Inhaler] Levothyroxine [Synthroid] 88 mcg PO QAM 05/26/16 08/31/16 Lisinopril [Zestril] 5 mg PO DAILY 05/26/16 08/31/16 Previous Rx's Medication Instructions Recorded Dicyclomine [Bentyl] 10 mg PO QID PRN #20 capsule 07/15/16 Allergies Allergy/AdvReac Type Severity Reaction Status Date / Time ezetimibe [From Zetia] Allergy Swelling Verified 05/26/16 19:37 of Lip/Tongue/Throat Review of Systems: Review of Systems Constitutional: Denies fevers, chills, night sweats HEENT: Denies headache, blurry vision, eye pain, tinnitus, vertigo, sore throat , neck or thyroid masses Respiratory: Denies cough, sputum change, hemoptysis, dyspnea Cardiac: Admits to chest pain, denies pressure, palpitations, dyspnea on exertion, pedal edema Gastrointestinal: Admits to intermittent abdominal pain, denies changes in bowel habits, admits to vomiting, nausea, hematemesis, denies hematochezia Genitourinary: Denies dysuria, hematuria, nocturia, change in frequency, urgency, incontinence Neurologic: Denies headaches, dizziness, syncope, focalized weakness, paraesthesias, weakness Musculoskeletal: Denies back pain, joint pain, myalgias All systems ED: reviewed and negative except as stated. Past Medical History - Past Medical History Attestation: Yes The following information was validated with the patient. Source: patient Medical history: Reports: cancer, COPD, coronary artery disease, GI bleed, hyperlipidemia, hypertension, myocardial infarction, thyroid disease, other Surgical history: Reports: cancer surgery, cholecystectomy, coronary bypass ( CABG), tracheostomy, other Psychiatric history: Reports: no psych history - Social History Smoking Status: Former smoker Smokeless Tobacco Status: No Alcohol use: Reports: none Drug use: Reports: none Physical Exam Physical Exam: General: Patient alert, no acute distress, not lethargic HEENT: Head normal inspection, atraumatic, PERRLA, oropharynx grossly intact and normal, trachea midline, no JVD Chest: Nontraumatic, nontender, normal chest rise CV: RRR with no murmurs, rubs, gallops Respiratory: Lungs clear to auscultation bilaterally, no rales, rhonchi, wheezes. Abdomen: Normal inspection, Normal bowel sounds 4 quadrants, nontender to palpation, PEG tube in place : Patient deferred Extremities: Normal inspection, full range of motion, appropriate pulses, capillary refill under 2 seconds Neurological: Patient alert and oriented 3, cranial nerves II through XII grossly intact, GCS 15 Skin: Warm, intact, no rashes noted Course - Consultations Consultation #1: Spoke with Dr. White who recommended protonix. Time: 23:56 Vital Signs Temperature 99.2 F 08/31/16 21:44 Pulse Rate 104 08/31/16 21:44 Respiratory Rate 18 08/31/16 21:44 Blood Pressure 163/105 08/31/16 21:44 O2 Sat by Pulse Oximetry 96 08/31/16 21:44 Temperature 99.1 F 09/01/16 01:41 Pulse Rate 103 09/01/16 02:03 Respiratory Rate 16 09/01/16 02:03 Blood Pressure 159/102 09/01/16 01:41 O2 Sat by Pulse Oximetry 97 09/01/16 02:03 Oxygen Delivery Oxygen Delivery Room Air Medical Decision Making - MDM Narrative Medical decision making narrative: Patient's troponin was mildly elevated here in the emergency department. The patient does have a new bump in his creatinine. We will continue to monitor with serial troponins once the patient is admitted to the hospital. PT and PTT were obtained as well per request of the hospitalist. Given the patient's coffee-ground emesis and consultation with endoscopy we did administer IV Protonix. We will admit the patient to the hospital for further workup. Patient agrees to plan. Accepted by Dr. Ragland. - Lab Data Lab results reviewed: Yes I reviewed the patient's lab results. Result diagrams: 09/01/16 00:35 Lab Results 08/31/16 Range/Units 21:56 Troponin I 0.05 H* (0-0.03) ng/mL - Radiology Data Radiology results reviewed: Yes I reviewed the patient's radiology results. - EKG Data EKG #1 EKG attestation: Yes I reviewed and interpreted this EKG. EKG results narrative: Heart rate 10 1 bpm. CA interval 148 ms. QTc 416 ms. Normal axis. Normal sinus rhythm. No ST elevation or ST depression noted. EKG from [facility] 2016 simmer in appearance. EKG from earlier today at the [facility] demonstrates no other acute changes noted. Critical Care Time Critical Care Time: Yes Total Critical Care Time: 33 Attestation: Acute upper GI bleed and tachycardia, fluid resuccitation required; Attestation Statement - Attestation Attestation: Dr Chu note: Pt seen in conjunction w/ Resident Dr Asencio; Please see his charting for complete documentation; I agree w/ pt's treatment and disposition and spent face to face time w/ the pt; the patient had sudden onset of epigastric pain to his back tonight. He went to an outside facility and had bloody emesis and was sent to edema. Continues to have epigastric pain here but his symptoms have improved. Patient has persistent mild tachycardia and a stable hemoglobin and a stable blood pressure at the time of admission. Will be admitted for an acute upper GI bleed with emesis. CT scan results noted
[2016-08-31] MEDS ORDERED: *HR* Morphine 2 MG/ML SYRINGE IVP ONE (22:34)
[2016-08-31] MEDS ORDERED: Pantoprazole 40 MG VIAL IVP ONE (23:54)
[2016-09-01] MEDS ORDERED: Ondansetron 4 MG/2 ML VIAL IVP ONE (00:25)
[2016-09-01] MEDS ORDERED: *HR* Promethazine 25 MG/ML VIAL IVP ONE (00:25)
[2016-09-01 00:41] LABS: Hematocrit 35.1 % (37.5-50.1); Hemoglobin 11.9 g/dL (12.9-16.9)
[2016-09-01] MEDS ORDERED: *HR* HYDROmorphone (PF) 1 MG/ML SYRINGE IV ONE (00:42)
[2016-09-01 00:47] LABS: INR 1.1; Prothrombin Time 11.4 Seconds (9.4-12.1)
[2016-09-01 00:49] LABS: Activated Partial Thrombo Time 25.8 Seconds (26.0-36.0)
[2016-09-01] MEDS ORDERED: Naloxone 0.4 MG/ML INJ IVP PRN (02:36)
[2016-09-01] MEDS ORDERED: Ondansetron 4 MG/2 ML VIAL IVP PRN (02:36)
[2016-09-01] MEDS ORDERED: *HR* Morphine 2 MG/ML SYRINGE IVP PRN (02:36)
[2016-09-01] MEDS ORDERED: *HR* Metoprolol 5 MG/5 ML VIAL IVP PRN (02:45)
[2016-09-01] MEDS: Pantoprazole 40 MG in 0.9 % Sodium Chloride Mini Bag 100 ML IVC SCH ×5 (02:49→22:45)
--- NOTE | 2016-09-01 02:49 | Internal Med History&Physical ---
<Tavon Lynn - Last Filed: 09/01/16 03:16> Date of Encounter: 09/01/16 Time of Encounter: 02:00 Assessment and Plan (1) UGIB (upper gastrointestinal bleed) Current visit: No Status: Acute Patient had episode of hemoccult positive emesis, that was described as coffee- ground with blood. His pain was improved with use of TUMS and Pepto. His hemoglobin seems to be mildly descreased. 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 Patient describes blood mixed in his stool and on the toilet paper. Patient has Wilson button PEG tube in place Surgery has been consulted to assist with management/correction patient GI bleed Patient start on PPI drip Pain medication of morphine 2 mg Ondansetron for patient nausea Maintenance normal saline at 100 mil/hr while patient NPO Will obtain Type and screen We will continue to trend hemoglobin every 6 hours Telemetry and continuous pulse oximetry NPO for possible scope (2) Chest pain Current visit: Yes Status: Acute Patient describes severe substernal/epigastric pain, that has since remitted spontaneously. He describes the current sensation as being different from his previous AL. He described the pain as being a 10/10 in severity, but has since come down to a 1-2/10 in severity. His ECG was unchanged when compared to his prior ECG and his initial trop was slightly elevated, likely due to his current GI Bleed. Unlikely the patient is having ACS will continue to trend troponins will treat GI Bleed as above Qualifiers: Chest pain type: unspecified Qualified Code(s): R07.9 - Chest pain, unspecified (3) Esophagitis, acute Current visit: Yes Status: Acute Mild esophagitis was identified on CT examination of his abdomen. This is possibly related to his current GI bleed. Plan as above (4) HTN (hypertension) Current visit: No Status: Acute Patient has known history of hypertensionand is on lisinopril at home. He has been having high blood pressures up to 185 SBP. 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 Patient has a very difficult time swallowing and takes very little PO. Most of the rest of his food is delivered through his PEG tube. (6) DVT prophylaxis Current visit: Yes Status: Acute Intermittent pneumatic compression devices Internal Medicine - H&P: HPI Chief complaint: Coffee-ground emesis and chest pain Admitted From: Hospital to Hospital Transfer Plans for Post Hospital Care: Home History of present illness: Mr. Francis is a 70 year old male medical history of head and neck cancer, COPD, CAD, gastrointestinal bleeding, hypothyroidism, prior AL in 2006 and hypertension who originally presented to the [place] because of over a day of chest pain. He reports that he had had a 10/10 in severity chest pain that he describes as sharp and knife-like in character that radiates to his back. He states that the pain resolved on it's own and is now currently a 2/10 in severity. While he was at the [place] being worked up for his chest pain and had an episode of hematemesis and coffee-ground emesis. This was found to be hemoccult positive and he was transferred to [facility]. At [facility] he continued to have tachycardia and hypertension and was given 2 L of bolus saline with improvement in patient tachycardia seen. The on-call surgeon was contacted who recommended a PPI drip and will evaluate patient in the morning. He was found to have some mild esophagitis on CT of his abdomen and this is the likely source of his chest pain. Past Med Surg Social Fam HX - Past Medical History Medical history: cancer, COPD, coronary artery disease, GI bleed, hyperlipidemia , hypertension, myocardial infarction, thyroid disease, other Psychiatric history: no psych history - Past Surgical History Surgical History: cancer surgery, cholecystectomy, coronary bypass (CABG), tracheostomy, other - Social History Smoking Status: Former smoker Smokeless Tobacco Status: No Alcohol use: none Drug use: none Internal Medicine - H&P: Meds Acetaminophen [Tylenol] 650 tab PO Q6HR PRN 04/02/15 [History] Albuterol Sulfate [Albuterol Inhaler] 2 puff IH Q6HR PRN 04/02/15 [History] Levothyroxine [Synthroid] 88 mcg PO QAM 05/26/16 [History] Lisinopril [Zestril] 5 mg PO DAILY 05/26/16 [History] Dicyclomine [Bentyl] 10 mg PO QID PRN #20 capsule 07/15/16 [Rx] Allergies ezetimibe [From Zetia] Allergy (Verified 05/26/16 19:37) Swelling of Lip/Tongue/Throat - Constitutional Constitutional: as per HPI, anorexia, fatigue, no chills, no fever(s), no weakness - EENT Eyes: no change in vision, no pain Nose, mouth and throat: as per HPI, dysphagia (chronic), no neck pain, no sore throat - Cardiovascular Cardiovascular ROS IM: as per HPI, chest pain, no diaphoresis, no dyspnea, no dyspnea on exertion, no lightheadedness, no palpitations, no syncope - Respiratory Respiratory: no cough, no dyspnea, no wheezing, no excessive phlegm production - Gastrointestinal Gastrointestinal: abdominal pain, change in stool character, coffee ground emesis, hematemesis, hematochezia, nausea, vomiting, no constipation, no diarrhea, no melena - Musculoskeletal Musculoskeletal ROS IM: no neck pain, no numbness, no tingling - Integumentary Integumentary IM: no rash, no unusual bruising - Neurological Neurological ROS: no confusion, no convulsions, no focal weakness, no numbness, no tingling, no tremor(s) - Hematologic/Lymphatic Hematologic/Lymphatic: no easy bleeding, no easy bruising - Constitutional Vitals: Temp Pulse Resp BP Pulse Ox 99.1 F 103 16 159/102 97 09/01/16 01:41 09/01/16 02:03 09/01/16 02:03 09/01/16 01:41 09/01/16 02:03 Exam: General: Cooperative, pleasant, no acute distress, alert and oriented 3, answers questions appropriately Head: Normocephalic, atraumatic Eye: Conjunctiva pink, sclera anicteric, EOMI, PERRL Neck: Supple, trachea midline, mucosa moist, notable deformity (from prior surgery) on right oropharnyx, post-surgical alterations of right neck, including resection of the scm Respiratory: No accessory muscle usage, clear to auscultation bilaterally, no wheezes/rhonchi/rales appreciated Cardiovascular: Regular rate and rhythm, S1 and S2 present, no murmurs/rubs/ gallops/clicks appreciated GI/abdominal: Nondistended, nontender, soft, normal bowel sounds, no peritoneal signs, Wilson Button PEG tube in place without signs of erythema or induration surrounding Extremities: No calf tenderness, noncyanotic, no pedal edema appreciated, warm, lower extremity pulses palpable and symmetrical Neurological: Alert and oriented 3, no facial droop, no focal deficits Skin: Dry, intact, normal color Internal Med - H&P Results - Labs CBC & Chem 7: 09/01/16 00:35 Labs: Short CBC 09/01/16 Range/Units 00:35 Hgb 11.9 L (12.9-16.9) g/dL Hct 35.1 L (37.5-50.1) % Labs performed at [place] included CBC that showed white count of 10.5, hemoglobin 13.1, hematocrit 38.2, and platelet count 292. Chemistry showed sodium 141 potassium 3.5 chloride 104 bicarbonate 28 BUN 33 creatinine 1.33 glucose 104. Troponin drawn at [place] 0.016, BNP 490, CK 57, AST/ALT 20/19, total bilirubin 0.6, alkaline phosphatase 58 - EKG Data -: EKG Interpreted by Myself EKG shows normal: sinus rhythm - EKG Data Prior EKG available for review: yes When compared to previous EKG: there is no significant change - Impressions Impressions Abdomen/Pelvis CT 08/31/16 21:46 IMPRESSION: 1. No acute findings within the abdomen or pelvis. Colonic diverticulosis with no acute features. 2. Gastrostomy tube within the body of the stomach. The balloon tip does not appear to be inflated currently. 3. Small hiatal hernia with mild prominence of the distal esophageal mucosa suggesting esophagitis. D/ / 08/31/2016 23:28:39 Mehrdad Cartagena MD / mansi Interpreting Provider: Mehrdad Cartagena MD <Rebecca Goldsmith - Last Filed: 09/01/16 11:08> Date of Encounter: 09/01/16 Internal Medicine - H&P: HPI History of present illness: Mr. Francis is a 70 year old male All Systems PM: A 10-system review of systems was performed and is negative for pertinent findings except as documented above in the HPI. - Constitutional Vitals: Temp Pulse Resp BP Pulse Ox 97.9 F 62 97 136/77 97 09/01/16 08:06 09/01/16 08:06 09/01/16 08:06 09/01/16 08:06 09/01/16 02:03 Internal Med - H&P Results - Labs CBC & Chem 7: 09/01/16 09:31 09/01/16 03:20 Labs: Short CBC 09/01/16 Range/Units 09:31 Hgb 10.5 L (12.9-16.9) g/dL Hct 31.3 L (37.5-50.1) % Cardiac Enzymes 09/01/16 Range/Units 09:31 Troponin I 0.04 H* (0-0.03) ng/mL - Attending Attestation I performed a history and physical examination of the patient and discussed management with the resident. I reviewed the residents note and agree with the documented findings and plan of care, with additions as below. 70 year old male medical history of head and neck cancer s/p PEG tube, COPD, CAD admitted with h/o coffee ground emesis / hematemesis. He was tachycardic in the ER, which is improving with IV fluids. O/E: not in acute distress. No abdominal tenderness. PEG tube in place: Cardiac: RRR. EKG: sinus rhythm. A/P: Hematemesis / Upper GI bleed: pantoprazole infusion; surgery consult for EGD. Monitor H&H; type and screen.
[2016-09-01 03:34] LABS: Basophils % 0.3 %; Eosinophils % 0.1 %; Hematocrit 31.1 % (37.5-50.1); Hemoglobin 10.6 g/dL (12.9-16.9); Immature Granulocytes % 0.3 % (0-4); Lymphocytes % 11.7 %; Mean Corpuscular HGB Conc 34.1 g/dL (31.6-35.5); Mean Corpuscular Volume 96.9 fL (83.0-100.0); Mean Platelet Volume 9.7 fL (9.4-12.4); Monocytes # 0.7 K/mcL (0.0-1.3); Neutrophils # 6.9 K/mcL (1.6-8.9); Platelet Count 222 K/mcL (140-400); Red Blood Count 3.21 M/mcL (4.19-5.50); Red Cell Distribution Width 14.7 % (11.5-14.5); Segmented Neutrophils % 79.6 %
[2016-09-01 03:47] LABS: Alanine Aminotransferase 11 Units/L (0-55); Albumin 2.8 g/dL (3.5-5.0); Alkaline Phosphatase 44 Units/L (38-126); Aspartate Amino Transferase 19 Units/L (5-34); BUN/Creatinine Ratio 24 (6-26); Bilirubin,Total 0.7 mg/dL (0.2-1.2); Blood Urea Nitrogen 25 mg/dL (8-26); Calcium 8.4 mg/dL (8.6-10.8); Carbon Dioxide 21 mEq/L (19-29); Chloride 111 mEq/L (98-109); Globulin 2.9 g/dL (2.4-3.5); Glucose 90 mg/dL (70-99); Magnesium 1.9 mg/dL (1.6-2.6); Osmolality,Calculated 296 (280-300); Phosphorous 2.6 mg/dL (2.3-4.7); Potassium 3.6 mEq/L (3.5-4.5); Sodium 141 mEq/L (136-145); Total Protein 5.7 g/dL (6.0-8.3); eGFR For African Americans > 60 (> 60); eGFR For Non-African Americans > 60 (> 60)
[2016-09-01] MEDS: 0.9 % Sodium Chloride 1,000 ML IVC SCH ×2 (04:00→12:30)
--- NOTE | 2016-09-01 07:12 | General Surgery Consult Note ---
Date of Encounter: 09/01/16 Time of Encounter: 07:12 Assessment and Plan (1) Coffee ground emesis Current Visit: Yes Status: Acute I explained to the patient that I do think it would be appropriate to go ahead and plan for performing EGD today due to his history of hematemesis over the past week. This way we can compare days result with his last EGD performed in April of last year. Discussed with the patient and he agrees to the above plan. 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 He normally receives TFs three times a day for nutrition and was admitted to [facility] in April of 2016 for a similar history. He had an EGD performed at that time that did show evidence for esophagitis. He states that he is taking ranitadine, but denies being on a PPI. He has had some GERD symptoms and states he has vomiting every day with bright colored stools as well. Past Med Surg Social Fam HX - Past Medical History Medical history: cancer, COPD, coronary artery disease, GI bleed, hyperlipidemia , hypertension, myocardial infarction, thyroid disease, other Psychiatric history: no psych history - Past Surgical History Surgical History: cancer surgery, cholecystectomy, coronary bypass (CABG), tracheostomy, other - Social History Smoking Status: Former smoker Smokeless Tobacco Status: No Alcohol use: none Drug use: none Medications and Allergies Acetaminophen [Tylenol] 650 tab PO Q6HR PRN 04/02/15 [History] Albuterol Sulfate [Albuterol Inhaler] 2 puff IH Q6HR PRN 04/02/15 [History] Levothyroxine [Synthroid] 88 mcg PO QAM 05/26/16 [History] Lisinopril [Zestril] 5 mg PO DAILY 05/26/16 [History] Dicyclomine [Bentyl] 10 mg PO QID PRN #20 capsule 07/15/16 [Rx] Allergies ezetimibe [From Zetia] Allergy (Verified 05/26/16 19:37) Swelling of Lip/Tongue/Throat Review of Systems All systems PM: reviewed and no additional remarkable complaints except as stated All systems PM: A 10-system review of systems was performed and is negative for pertinent findings except as documented above in the HPI. General Surgery Exam Initial Vital Signs Temp Pulse Resp BP Pulse Ox 99.2 F 104 18 163/105 96 08/31/16 21:44 08/31/16 21:44 08/31/16 21:44 08/31/16 21:44 08/31/16 21:44 - General physical appearance no distress, cachectic - Eyes PERRL, normal ocular movement - Neck other (noted right lateral neck incision. No erythema. No lymphadenapthy appreciated.) - Respiratory normal expansion, normal respiratory effort, clear to auscultation - Cardiovascular Cardiovascular exam: Present: RRR, no murmurs/rubs/gallops - Abdomen Abdomen general surgery: Present: bowel sounds present, soft (PEG in place ( button). No drainage. No erythema.) - Neurologic Present: CN 2-12 grossly intact - Musculoskeletal Present: other (No clubbing cyanosis, or edema) - Psychiatric Psychiatric general surgery: Present: A&Ox3 Exam Initial Vital Signs Temp Pulse Resp BP Pulse Ox 99.2 F 104 18 163/105 96 08/31/16 21:44 08/31/16 21:44 08/31/16 21:44 08/31/16 21:44 08/31/16 21:44 Results - Labs 09/01/16 09:31 09/01/16 03:20 Abnormal lab results RBC 3.21 M/mcL (4.19-5.50) L 09/01/16 03:20 Hgb 10.6 g/dL (12.9-16.9) L 09/01/16 03:20 Hct 31.1 % (37.5-50.1) L 09/01/16 03:20 RDW 14.7 % (11.5-14.5) H 09/01/16 03:20 APTT 25.8 Seconds (26.0-36.0) L 09/01/16 00:35 Chloride 111 mEq/L (98-109) H 09/01/16 03:20 Calcium 8.4 mg/dL (8.6-10.8) L 09/01/16 03:20 Troponin I 0.05 ng/mL (0-0.03) H* 09/01/16 03:20 Serum Total Protein 5.7 g/dL (6.0-8.3) L 09/01/16 03:20 Albumin 2.8 g/dL (3.5-5.0) L 09/01/16 03:20 Albumin/Globulin Ratio 1.0 (1.1-2.2) L 09/01/16 03:20 Diabetes panel 09/01/16 Range/Units 03:20 Sodium 141 (136-145) mEq/L Potassium 3.6 (3.5-4.5) mEq/L Chloride 111 H (98-109) mEq/L Carbon Dioxide 21 (19-29) mEq/L BUN 25 (8-26) mg/dL Creatinine 1.05 (0.72-1.25) mg/dL Glucose 90 (70-99) mg/dL Calcium 8.4 L (8.6-10.8) mg/dL AST 19 (5-34) Units/L ALT 11 (0-55) Units/L Alkaline Phosphatase 44 (38-126) Units/L Albumin 2.8 L (3.5-5.0) g/dL Calcium panel 09/01/16 Range/Units 03:20 Calcium 8.4 L (8.6-10.8) mg/dL Phosphorus 2.6 (2.3-4.7) mg/dL Albumin 2.8 L (3.5-5.0) g/dL Pituitary panel 09/01/16 Range/Units 03:20 Sodium 141 (136-145) mEq/L Potassium 3.6 (3.5-4.5) mEq/L Chloride 111 H (98-109) mEq/L Carbon Dioxide 21 (19-29) mEq/L BUN 25 (8-26) mg/dL Creatinine 1.05 (0.72-1.25) mg/dL Glucose 90 (70-99) mg/dL Calcium 8.4 L (8.6-10.8) mg/dL Adrenal panel 09/01/16 Range/Units 03:20 Sodium 141 (136-145) mEq/L Potassium 3.6 (3.5-4.5) mEq/L Chloride 111 H (98-109) mEq/L Carbon Dioxide 21 (19-29) mEq/L BUN 25 (8-26) mg/dL Creatinine 1.05 (0.72-1.25) mg/dL Glucose 90 (70-99) mg/dL Calcium 8.4 L (8.6-10.8) mg/dL Total Bilirubin 0.7 (0.2-1.2) mg/dL AST 19 (5-34) Units/L ALT 11 (0-55) Units/L Alkaline Phosphatase 44 (38-126) Units/L Albumin 2.8 L (3.5-5.0) g/dL All other labs normal. Consult Discharge Plan - Plan Referrals: BRI,PCP [Primary Care Provider] - 09/19/16 8:45 am
[2016-09-01] MEDS ORDERED: *HR* Dextrose 50 % in Water (Syg) 50 ML SYRINGE IVP PRN (08:35)
[2016-09-01] MEDS ORDERED: Dextrose Gel 15 GM PO PRN ×2 (08:35)
[2016-09-01] MEDS ORDERED: D5% in Water 1,000 ML IVC PRN (08:35)
[2016-09-01] MEDS: *HR* Dextrose 50 % in Water (Syg) 50 ML SYRINGE ONE ×2 (09:45→10:03)
[2016-09-01 09:53] LABS: Hematocrit 31.3 % (37.5-50.1); Hemoglobin 10.5 g/dL (12.9-16.9)
--- NOTE | 2016-09-01 13:35 | Electrocardiograph Report ---
[address] [address] Test Date: 2016-08-31 Pat Name: Luis Francis Department: 102 Room: 2N06 Gender: M [employer]: Ezio : 1945 Requested By: Heriberto Goddard Order Number: [id number] Reading MD: Jonathan Valentin MD Measurements Intervals [place] Rate: 101 P: 58 HI: 148 QRS: -4 QRSD: 98 T: 52 QT: 358 QTc: 416 Interpretive Statements SINUS TACHYCARDIA Electronically Signed On 09-01-2016 13:34:16 EDT by Jonathan Valentin MD
--- NOTE | 2016-09-01 15:21 | Event Note ---
Date of Encounter: 09/01/16 Time of Encounter: 15:19 Patient seen and examined with family present at bedside. No reported hemetemesis or melena since hospitalization. Denies any discomfort at this time. Reports of recently having an EGD on Monday (08/29/16) at the [place] due to which his scheduled EGD was cancelled by surgery. Awaiting records from the [place]. Will closely monitor H&H and resume tube feedings. Patient in agreement with this plan.
[2016-09-01 21:48] LABS: Basophils % 0.5 %; Eosinophils # 0.1 K/mcL (0.0-0.6); Eosinophils % 1.5 %; Hematocrit 30.4 % (37.5-50.1); Hemoglobin 10.3 g/dL (12.9-16.9); Immature Granulocytes % 0.5 % (0-4); Lymphocytes % 16.1 %; Mean Corpuscular HGB Conc 33.9 g/dL (31.6-35.5); Mean Corpuscular Hemoglobin 33.1 pg (28.0-33.3); Mean Corpuscular Volume 97.7 fL (83.0-100.0); Mean Platelet Volume 9.8 fL (9.4-12.4); Monocytes # 0.5 K/mcL (0.0-1.3); Monocytes % 7.6 %; Neutrophils # 4.5 K/mcL (1.6-8.9); Platelet Count 206 K/mcL (140-400); Red Blood Count 3.11 M/mcL (4.19-5.50); Red Cell Distribution Width 14.8 % (11.5-14.5); Segmented Neutrophils % 73.8 %
[2016-09-01] MEDS: Sucralfate 1 GM TABLET PO SCH (21:54)
[2016-09-02] MEDS: 0.9 % Sodium Chloride 1,000 ML IVC SCH ×2 (03:54→09:03)
[2016-09-02] MEDS: Sucralfate 1 GM TABLET PO SCH ×3 (03:54→12:03)
[2016-09-02] MEDS: Pantoprazole 40 MG in 0.9 % Sodium Chloride Mini Bag 100 ML IVC SCH ×2 (03:55→09:00)
[2016-09-02 04:54] LABS: Basophils # 0.1 K/mcL (0.0-0.2); Basophils % 0.9 %; Eosinophils # 0.1 K/mcL (0.0-0.6); Eosinophils % 2.1 %; Hematocrit 30.3 % (37.5-50.1); Hemoglobin 10.3 g/dL (12.9-16.9); Immature Granulocytes % 0.5 % (0-4); Lymphocytes # 1.1 K/mcL (0.6-4.6); Lymphocytes % 16.4 %; Mean Corpuscular Hemoglobin 33.4 pg (28.0-33.3); Mean Corpuscular Volume 98.4 fL (83.0-100.0); Mean Platelet Volume 10.4 fL (9.4-12.4); Monocytes # 0.7 K/mcL (0.0-1.3); Monocytes % 10.3 %; Neutrophils # 4.6 K/mcL (1.6-8.9); Platelet Count 209 K/mcL (140-400); Red Blood Count 3.08 M/mcL (4.19-5.50); Red Cell Distribution Width 14.7 % (11.5-14.5); Segmented Neutrophils % 69.8 %
[2016-09-02 05:13] LABS: BUN/Creatinine Ratio 13 (6-26); Carbon Dioxide 25 mEq/L (19-29); Chloride 116 mEq/L (98-109); Glucose 88 mg/dL (70-99); Magnesium 1.9 mg/dL (1.6-2.6); Osmolality,Calculated 297 (280-300); Phosphorous 1.6 mg/dL (2.3-4.7); Potassium 3.3 mEq/L (3.5-4.5); Sodium 144 mEq/L (136-145); eGFR For African Americans > 60 (> 60); eGFR For Non-African Americans > 60 (> 60)
[2016-09-02 05:16] LABS: Blood Urea Nitrogen 11 mg/dL (8-26)
[2016-09-02] MEDS ORDERED: Potassium Phosphate 44 MEQ in 0.9 % Sodium Chloride 250 ML IVPB ONE (07:37)
[2016-09-02] MEDS ORDERED: Levothyroxine Sodium 100 MCG VIAL IVP SCH (09:00)
--- NOTE | 2016-09-02 10:37 | General Surgery Progress Note ---
Date of Encounter: 09/02/16 Time of Encounter: 10:33 - Assessment and Plan (1) Coffee ground emesis Current Visit: Yes Status: Resolved Patient s/p EGD at the [facility] with Dr. Amador on 08/29/16- reports reviewed and showed esophagitis and gastritis, pathology reports reviewed. Negative for H. Pylori. Hgb is stable and no further coffee ground emesis noted. No indication for surgical/endoscopy intervention at this time. Continue PPI daily. Continue carafate QID for the next 2 weeks. Surgery will sign off. Thank you for allowing us to participate in the care of this patient. Please call with any further questions concerns. Subjective Patient reports: no new complaints, feels better, tolerating liquids well (tube feedings via peg tube), afebrile, other (No coffee ground emesis noted) Objective Vital Signs - Last 8 Hours Temp Pulse Resp BP Pulse Ox 09/02/16 07:00 98 F 76 18 155/92 97 09/02/16 04:24 80 09/02/16 03:31 98.2 F 81 17 147/80 97 Intake and Output 09/01/16 09/02/16 09/02/16 23:59 07:59 15:59 Intake Total 1230 / 1230 160 / 160 Balance 1230 / 1230 160 / 160 Intake: IV Fluids 1200 / 1200 100 / 100 0.9 % Sodium Chloride 1, 1000 / 1000 000 ML @ 100 mls/hr IVC . Q10H [facility] Rx#:[id number] Protonix 40 MG In 0.9 % 200 / 200 100 / 100 Sodium Chloride (Mini-Bag +) 100 ML @ 20 mls/hr IVC .Q5H [facility] Rx#: [id number] Oral 0 / 0 Free Water Intake Amount 30 / 30 60 / 60 Other: # Voids 1 1 Weight 64.5 kg Blood Glucose* 91 90 Patient Weight 09/02/16 23:59 Weight 64.5 kg - General physical appearance well developed, well nourished, no distress - Eyes normal ocular movement - ENT normal mucosa, atraumatic, normocephalic - Neck Neck exam: trachea midline - Respiratory normal respiratory effort - Cardiovascular Cardiovascular exam: Present: RRR - Abdomen Abdomen: Present: bowel sounds present, soft, non tender, wound (tolerated tube feedings via peg tube) - Neurologic CN 2-12 grossly intact - Psychiatric oriented to time, oriented to person, oriented to place, speech is normal, memory intact - Labs 09/02/16 04:04 09/02/16 04:04 Diabetes panel 09/02/16 Range/Units 04:04 Sodium 144 (136-145) mEq/L Potassium 3.3 L (3.5-4.5) mEq/L Chloride 116 H (98-109) mEq/L Carbon Dioxide 25 (19-29) mEq/L BUN 11 D (8-26) mg/dL Creatinine 0.82 (0.72-1.25) mg/dL Glucose 88 (70-99) mg/dL Calcium 8.0 L (8.6-10.8) mg/dL Calcium panel 09/02/16 Range/Units 04:04 Calcium 8.0 L (8.6-10.8) mg/dL Phosphorus 1.6 L (2.3-4.7) mg/dL Pituitary panel 09/02/16 Range/Units 04:04 Sodium 144 (136-145) mEq/L Potassium 3.3 L (3.5-4.5) mEq/L Chloride 116 H (98-109) mEq/L Carbon Dioxide 25 (19-29) mEq/L BUN 11 D (8-26) mg/dL Creatinine 0.82 (0.72-1.25) mg/dL Glucose 88 (70-99) mg/dL Calcium 8.0 L (8.6-10.8) mg/dL Adrenal panel 09/02/16 Range/Units 04:04 Sodium 144 (136-145) mEq/L Potassium 3.3 L (3.5-4.5) mEq/L Chloride 116 H (98-109) mEq/L Carbon Dioxide 25 (19-29) mEq/L BUN 11 D (8-26) mg/dL Creatinine 0.82 (0.72-1.25) mg/dL Glucose 88 (70-99) mg/dL Calcium 8.0 L (8.6-10.8) mg/dL - VTE Documentation of Mechanical Device: Graduated compression elastic hosiery Consult Discharge Plan - Plan [facility]errals: [facility]Primary Care Provider[facility] - 09/19/16 8:45 am - Attending Attestation I examined this patient and my medical decision-making was reviewed with the [employer]INE/PA/Advanced Practice Nurse/Resident Physician. I agree with the documented findings, disposition and treatment plan as described except to the extent set forth below.
[2016-09-02 11:34] VITALS: BP 144/85
--- NOTE | 2016-09-02 12:03 | Discharge Summary ---
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 Sucralfate [Carafate] 1 gm PO QIDAC #60 tablet Home Medications: Acetaminophen [Tylenol] 650 tab PO Q6HR PRN 04/02/15 [History] Albuterol Sulfate [Albuterol Inhaler] 2 puff IH Q6HR PRN 04/02/15 [History] Levothyroxine [Synthroid] 88 mcg PO QAM 05/26/16 [History] Lisinopril [Zestril] 5 mg PO DAILY 05/26/16 [History] Dicyclomine [Bentyl] 10 mg PO QID PRN #20 capsule 07/15/16 [Rx] Pantoprazole Sodium [Protonix] 40 mg PO DAILY #30 tablet. 09/02/16 [Rx] Sucralfate [Carafate] 1 gm PO QIDAC #60 tablet 09/02/16 [Rx] Allergies/Adverse Reactions: Allergies ezetimibe [From Zetia] Allergy (Verified 05/26/16 19:37) Swelling of Lip/Tongue/Throat Procedures/tests Complete & Pending: Procedures Performed prior 72 hours Category Date Time Status ECG 12 lead ECG [ECG] Routine Y 08/31/16 21:50 Completed Date of admission: 09/01/16 08:15 Primary care physician: PCP [facility] Consults: SURGERY: DR. KERR Discharging clinician: Malka Mansfield Anticipated date of discharge: 09/02/16 - Patient Status Disposition: Home, Self-Care Condition: Good Functional capacity at discharge: independent ambulation Overall status at discharge: patient is back to baseline - Discharge Instructions Follow Up With: [facility] [Primary Care Provider] - 09/19/16 8:45 am Additional Instructions: Please follow up with your primary care physician within one week after your discharge from the hospital. Protonix and carafate have been added to your home medications. Please take these medications as prescribed. Please resume all your other home medications as prescribed by your primary care physician. Hospital course: Mr. Francis is a 70 year old male with PMH of head and neck cancer, COPD, CAD, gastrointestinal bleeding, hypothyroidism, prior [place] in 2006 and hypertension who was admitted for management of UGIB. Surgery was consulted by the ER physician for further management. Patient was kept NPO with initiation of IV protonic drip. Pt remained asymptomatic throughout the course of his admission with no recurrent episodes of GI bleed or further drop in H&H. He had reported history of undergoing EGD earlier this week at the [facility] which reported esophagitis and gastritis. Due to recent EGD no further surgical intervention was recommended by the surgical team. Patient is currently hemodynamically stable with stable H&H. No further episodes of bleeding reported. He will be discharged with Protonix and carafate. He is to follow up with PCP and GI after discharge. Patient will be discharged to home today. Pt and demonstrate understanding of his diagnosis and agree with the discharge care and plan. - Time Spent with Patient Total time spent providing and/or coordinating discharge services: Less than 30 minutes - Constitutional Vitals: Temp Pulse Resp BP Pulse Ox 97.9 F 75 16 144/85 97 09/02/16 11:00 09/02/16 11:00 09/02/16 11:00 09/02/16 11:00 09/02/16 07:00 General appearance: Present: A&O X 3, no acute distress - Head Head exam: Present: atraumatic, normocephalic - Eye Eye exam: Present: PERRL, conjuntiva pink, sclera anicteric - Respiratory Respiratory exam: Present: CTAB. Absent: accessory muscle use, rales, rhonchi, wheezes - Cardiovascular Cardiovascular exam: Present: RRR, +S1, +S2. Absent: diastolic murmur, gallop, rubs, systolic murmur - GI/Abdominal GI/Abdominal exam: Present: normal bowel sounds, soft, no peritoneal signs. Absent: distended, tenderness Additional comments: PEG tube in place, site clean - Extremities Exam Extremities exam: Present: warm, radial pulses palpable and symetrical. Absent : calf tenderness, cyanotic, pedal edema - Neurological Exam Neurological exam: Present: alert, oriented X3 - VTE Documentation of Mechanical Device: Graduated compression elastic hosiery
[2016-09-02] MEDS ORDERED: Pantoprazole 40 MG VIAL IVP SCH (18:00)
== END 2016-09-02 16:26 | disposition home or self-care (01) | DRG 378 ==
LOC: EMEROO 21:41 → 3ANU 21:41 → 2NNU 09-01 00:49 → SUATTDRO 09-01 08:15
PROVIDERS: ADMIT Internal Medicine; ATTEND Internal Medicine

== ENCOUNTER 2017-06-08 15:34 | Inpatient (IN) ==
--- NOTE | 2017-06-08 16:00 | Emergency Department Note ---
Disposition Clinical Impression: Acute kidney injury Chest pain Qualifiers: Chest pain type: other chest pain Qualified Code(s): R07.89 - Other chest pain GI bleed Qualifiers: GI bleed type/associated pathology: unspecified gastrointestinal hemorrhage type Qualified Code(s): K92.2 - Gastrointestinal hemorrhage, unspecified Disposition: Admitted As Inpatient Condition: Fair [facility]errals: [facility] [Primary Care Provider] - Time of Disposition: 20:36 Chest Pain HPI - General Chief Complaint: ED Chest Pain Stated Complaint: "chest pain" Vital Signs Reviewed: Yes Nursing Notes Reviewed: Yes - History of Present Illness HPI Narrative: Presents on transfer from the [place] with complaint of 2 weeks of constant chest burning which is not exertional, no dyspnea but does have some diaphoresis. No pleuritic aspect. No radiation and specifically no radiation to the neck, arm, jaw, or back. The patient for the last several days has had 5 episodes of vomiting some of which had hematemesis. His not aware of any blood in the stool. The patient did have a negative initial troponin done at the [facility]. The patient denies any pain or swelling of the lower extremities. He does have some rhinorrhea and sneezing but no cough. No fever. No new blurred vision. No blood in the urine. No bruising of the skin or skin rash. No pain or numbness of extremities. Social history: Had smoked in the distant past. No smoking or alcohol now. Is here with his The patient has had a heart attack in the past but does not remember the sensation of hands at times it is not know if this pain is similar or different - Related Data Home Medications Medication Instructions Recorded Confirmed Acetaminophen [Tylenol] 650 tab PO Q6HR PRN 04/02/15 08/31/16 Albuterol Sulfate [Albuterol 2 puff IH Q6HR PRN 04/02/15 08/31/16 Inhaler] Levothyroxine [Synthroid] 88 mcg PO QAM 05/26/16 08/31/16 Lisinopril [Zestril] 5 mg PO DAILY 05/26/16 08/31/16 Previous Rx's Medication Instructions Recorded Dicyclomine [Bentyl] 10 mg PO QID PRN #20 capsule 07/15/16 Pantoprazole Sodium [Protonix] 40 mg PO DAILY #30 tablet. 09/02/16 Sucralfate [Carafate] 1 gm PO DA #60 tablet 09/02/16 Allergies Allergy/AdvReac Type Severity Reaction Status Date / Time ezetimibe [From Zetia] Allergy Swelling Verified 05/26/16 19:37 of Lip/Tongue/Throat Review of Systems: As Per HPI Chest Pain PMH - Past Medical History Medical history: Reports: cancer, COPD, coronary artery disease, GI bleed, hyperlipidemia, hypertension, myocardial infarction, thyroid disease, other Surgical history: Reports: cancer surgery, cholecystectomy, coronary bypass ( CABG), tracheostomy, other Psychiatric history: Reports: no psych history - Social History Smoking Status: Former smoker Alcohol use: Reports: none Drug use: Reports: none Physical Exam CONSTITUTIONAL: Well-appearing; well-nourished; A&O X 3, in no apparent distress HEAD: Normocephalic; atraumatic EYES: PERRL, no scleral icterus NOSE: The nose is normal in appearance without rhinorrhea RESP: Normal chest excursion with respiration; breath sounds clear and equal bilaterally; no wheezes, rhonchi, or rales CARD: Regular rhythm, without murmurs, rub or gallop ABD: Non-distended; non-tender, soft, without rigidity, rebound or guarding,no pulsatile mass SKIN: Normal for age and race; warm and dry without diaphoresis ; no apparent lesions EXTREMITIES: Pulses are 2 plus and equal times 4 extremities, no peripheral edema or calf muscle pain Course Vital Signs Pulse Rate 120 06/08/17 15:35 Respiratory Rate 18 06/08/17 15:35 Blood Pressure 131/78 06/08/17 15:35 O2 Sat by Pulse Oximetry 96 06/08/17 15:35 Temperature 98.3 F 06/08/17 15:37 Pulse Rate 113 06/08/17 18:35 Respiratory Rate 16 06/08/17 18:35 Blood Pressure 137/93 06/08/17 18:35 O2 Sat by Pulse Oximetry 94 06/08/17 18:35 Oxygen Delivery Oxygen Delivery Room Air Chest Pain - MDM Narrative Medical decision making narrative: The patient is tachycardic and this could be from GI bleeding and the patient has refused a rectal exam. I did have a long discussion with him. He does understand that it will be difficult to differentiate between upper and lower GI bleeding without the exam but he does not want to have that done and does refuse to have it done at this time. He does have orders for labs including CBC , metabolic profile, type and screen as well as a chest x-ray and troponin test. I did review his EKG which shows sinus tachycardia with a rate of [address] changes. Results pending. 1603 Patient did receive IV fluids for the tachycardia as well as Zofran 8 mg, Protonix 40 mg and then Dilaudid 1 mg. The emesis basin did have dark red emesis in the basin but only small amount. Patient hemodynamically seems stable. Will be admitted to the hospital. I do have the hospitalist paged. CT scan does not show any evidence of pulmonary embolism and this test was ordered because of the elevated d-dimer and the d-dimer was ordered because of tachycardia [address] Mansfield who accepts the patient for admission. I will write for a consult for GI. The patient is hemodynamically stable with a normal hemoglobin level. Patient will be admitted. Receiving IV fluids. Proton pump inhibitor. He is typed and screened. 2101 - Medical Records Medical records reviewed: Yes I reviewed the patient's medical records. - Lab Data Lab results reviewed: Yes I reviewed the patient's lab results. Result diagrams: 06/08/17 16:07 06/08/17 16:07 Lab Results 06/08/17 06/08/17 06/08/17 Range/Units 16:07 16:07 16:07 WBC 9.9 (4.3-11.1) K/mcL RBC 4.43 (4.19-5.50) M/mcL Hgb 13.5 (12.9-16.9) g/dL Hct 41.0 (37.5-50.1) % MCV 92.6 (83.0-100.0) fL MCH 30.5 (28.0-33.3) pg MCHC 32.9 (31.6-35.5) g/dL RDW 14.7 H (11.5-14.5) % Plt Count 284 (140-400) K/mcL MPV 10.4 (9.4-12.4) fL Immature Gran % 0.2 (0-4) % Seg Neutrophils % 85.3 % Lymphocytes % 7.2 % Monocytes % 6.4 % Eosinophils % 0.3 % Basophils % 0.6 % Neutrophils # 8.4 (1.6-8.9) K/mcL Lymphocytes # 0.7 (0.6-4.6) K/mcL Monocytes # 0.6 (0.0-1.3) K/mcL Eosinophils # 0.0 (0.0-0.6) K/mcL Basophils # 0.1 (0.0-0.2) K/mcL D-Dimer (0-500) ng/mLFEU Sodium 138 (136-145) mEq/L Potassium 4.2 (3.5-5.1) mEq/L Chloride 106 (98-107) mEq/L Carbon Dioxide 25 (23-29) mEq/L BUN 30 H (8-23) mg/dL Creatinine 1.39 H (0.70-1.30) mg/dL Est GFR ( Amer) > 60 (> 60) Est GFR (Non-Af Amer) 50 L (> 60) BUN/Creatinine Ratio 22 (6-26) Glucose 176 H (70-105) mg/dL Calculated Osmolality 296 (280-300) Calcium 9.2 (8.6-10.3) mg/dL Troponin I (< 0.04) ng/mL Blood Type A POSITIVE Antibody Screen NEGATIVE 06/08/17 06/08/17 Range/Units 16:07 16:07 WBC (4.3-11.1) K/mcL RBC (4.19-5.50) M/mcL Hgb (12.9-16.9) g/dL Hct (37.5-50.1) % MCV (83.0-100.0) fL MCH (28.0-33.3) pg MCHC (31.6-35.5) g/dL RDW (11.5-14.5) % Plt Count (140-400) K/mcL MPV (9.4-12.4) fL Immature Gran % (0-4) % Seg Neutrophils % % Lymphocytes % % Monocytes % % Eosinophils % % Basophils % % Neutrophils # (1.6-8.9) K/mcL Lymphocytes # (0.6-4.6) K/mcL Monocytes # (0.0-1.3) K/mcL Eosinophils # (0.0-0.6) K/mcL Basophils # (0.0-0.2) K/mcL D-Dimer 2049 H (0-500) ng/mLFEU Sodium (136-145) mEq/L Potassium (3.5-5.1) mEq/L Chloride (98-107) mEq/L Carbon Dioxide (23-29) mEq/L BUN (8-23) mg/dL Creatinine (0.70-1.30) mg/dL Est GFR ( Amer) (> 60) Est GFR (Non-Af Amer) (> 60) BUN/Creatinine Ratio (6-26) Glucose (70-105) mg/dL Calculated Osmolality (280-300) Calcium (8.6-10.3) mg/dL Troponin I < 0.03 (< 0.04) ng/mL Blood Type Antibody Screen - Radiology Data Radiology results reviewed: Yes I reviewed the patient's radiology results.
[2017-06-08 16:21] LABS: Basophils # 0.1 K/mcL (0.0-0.2); Basophils % 0.6 %; Eosinophils % 0.3 %; Hemoglobin 13.5 g/dL (12.9-16.9); Immature Granulocytes % 0.2 % (0-4); Lymphocytes # 0.7 K/mcL (0.6-4.6); Lymphocytes % 7.2 %; Mean Corpuscular HGB Conc 32.9 g/dL (31.6-35.5); Mean Corpuscular Hemoglobin 30.5 pg (28.0-33.3); Mean Corpuscular Volume 92.6 fL (83.0-100.0); Mean Platelet Volume 10.4 fL (9.4-12.4); Monocytes # 0.6 K/mcL (0.0-1.3); Monocytes % 6.4 %; Neutrophils # 8.4 K/mcL (1.6-8.9); Platelet Count 284 K/mcL (140-400); Red Blood Count 4.43 M/mcL (4.19-5.50); Red Cell Distribution Width 14.7 % (11.5-14.5); Segmented Neutrophils % 85.3 %
[2017-06-08 16:43] LABS: Blood Urea Nitrogen 30 mg/dL (8-23); Carbon Dioxide 25 mEq/L (23-29); Chloride 106 mEq/L (98-107); Glucose 176 mg/dL (70-105); Osmolality,Calculated 296 (280-300); Potassium 4.2 mEq/L (3.5-5.1); Sodium 138 mEq/L (136-145)
[2017-06-08 17:05] LABS: BUN/Creatinine Ratio 22 (6-26); Calcium 9.2 mg/dL (8.6-10.3); eGFR For African Americans > 60 (> 60); eGFR For Non-African Americans 50 (> 60)
[2017-06-08] MEDS ORDERED: Pantoprazole 40 MG VIAL IVP ONE (19:12)
[2017-06-08] MEDS ORDERED: Ondansetron 4 MG/2 ML VIAL IVP ONE (19:12)
[2017-06-08] MEDS ORDERED: 0.9 % Sodium Chloride 1,000 ML IVC ONE (19:21)
[2017-06-08] MEDS ORDERED: *HR* HYDROmorphone (PF) 1 MG/ML SYRINGE IVP ONE (20:25)
[2017-06-08] MEDS ORDERED: Nitroglycerin 0.4 MG TAB.SUBL SL ONE (22:38)
[2017-06-08] MEDS ORDERED: Ondansetron 4 MG/2 ML VIAL IVP PRN (22:43)
[2017-06-08] MEDS ORDERED: *HR* Promethazine 25 MG/ML VIAL IVP PRN (22:43)
[2017-06-08] MEDS ORDERED: Naloxone 0.4 MG/ML INJ IVP PRN (22:43)
[2017-06-08] MEDS ORDERED: *HR* Morphine 2 MG/ML SYRINGE IVP PRN (22:43)
[2017-06-08] MEDS ORDERED: *HR* HYDROmorphone (PF) 1 MG/ML SYRINGE IVP PRN (22:43)
[2017-06-08] MEDS ORDERED: 0.9 % Sodium Chloride 1,000 ML IVC SCH (22:45)
[2017-06-08] MEDS ORDERED: Nitroglycerin 0.4 MG TAB.SUBL SL PRN (22:48)
[2017-06-09] MEDS: Pantoprazole 40 MG in 0.9 % Sodium Chloride Mini Bag 100 ML IVC SCH ×2 (00:02→05:48)
--- NOTE | 2017-06-09 03:25 | Internal Med History&Physical ---
Date of Encounter: 06/09/17 Time of Encounter: 00:25 Assessment and Plan (1) UGIB (upper gastrointestinal bleed) Current visit: No Status: Resolved Reported history of coffee ground emesis pt has prior admissions for same complain in the past NPO at this time GI consult requested (morning team to call) PPI IV fluids Pt refused rectal exam in the ER obtain stool occult (2) Coffee ground emesis Current visit: No Status: Acute as listed above (3) Chest pain Current visit: No Status: Resolved Given history and presentation, will admit to r/o ACS serial TNI pt reports of having negative nuclear stress test a month ago pain could be secondary to underlying GI bleed will obtain 2D echo TNI so far have been negative, will continue to trend nitro SL prn pain tele monitoring will hold Aspirin given persistent vomiting episodes of UGIB continue statin Restart home medications after verification Qualifiers: Chest pain type: unspecified Qualified Code(s): R07.9 - Chest pain, unspecified (4) CAD (coronary artery disease) Current visit: No Status: Chronic Qualifiers: Coronary Disease-Associated Artery/Lesion type: bypass graft [place] vs. transplanted heart: [place] heart Associated angina: without angina Qualified Code(s): I25.810 - Atherosclerosis of coronary artery bypass graft(s) without angina pectoris (5) HTN (hypertension) Current visit: No Status: Chronic Noted to be hypertensive initially improved with Nitro SL started Hydralazine 10mg IV q6h PRN SBP>160 restart home medications after verification Qualifiers: Hypertension type: essential hypertension Qualified Code(s): I10 - Essential (primary) hypertension (6) DVT prophylaxis Current visit: No Status: Acute SCD Internal Medicine - H&P: HPI Chief complaint: coffee ground emesis Admitted From: Home Plans for Post Hospital Care: Home History of present illness: Mr. Francis is a 71 year old male with PMH of head & neck ca, CAD, COPD, GI bleed , hypothyroidism, HTN presents to the hospital for evaluation of chest pain and worsening episodes of coffee ground emesis. Pt states he has been feeling weak for the past two weeks with pressure like localized chest pain and for the past two days he has been having coffee ground emesis along with black stools. He states he had a stress test done at the [facility] a month ago which was negative. During my evaluation, pt is noted to be weak, denies any acute bleeding episodes since hospitalization. States the chest discomfort is there however improved since admission. Pt received Nitro SL which improved his pain. social history: former smoker Past Med Surg Social Fam HX - Past Medical History Medical history: cancer, coronary artery disease, GI bleed, hyperlipidemia, hypertension, myocardial infarction, thyroid disease, other Psychiatric history: no psych history - Past Surgical History Surgical History: cancer surgery, cholecystectomy, coronary bypass (CABG), tracheostomy, other - Social History Smoking Status: Former smoker Smokeless Tobacco Status: No Alcohol use: none Drug use: none - Family History Father History Unknown: Yes Internal Medicine - H&P: Meds Acetaminophen [Tylenol] 650 tab PO Q6HR PRN 04/02/15 [History] Albuterol Sulfate [Albuterol Inhaler] 2 puff IH Q6HR PRN 04/02/15 [History] Levothyroxine [Synthroid] 88 mcg PO QAM 05/26/16 [History] Lisinopril [Zestril] 5 mg PO DAILY 05/26/16 [History] Dicyclomine [Bentyl] 10 mg PO QID PRN #20 capsule 07/15/16 [Rx] Pantoprazole Sodium [Protonix] 40 mg PO DAILY #30 tablet. 09/02/16 [Rx] Sucralfate [Carafate] 1 gm PO QIDAC #60 tablet 09/02/16 [Rx] 3 Allergy/AdvReac Type Severity Reaction Status Date / Time ezetimibe [From Zetia] Allergy Swelling Verified 05/26/16 19:37 of Lip/Tongue/Throat All Systems PM: A 10-system review of systems was performed and is negative for pertinent findings except as documented above in the HPI. - Constitutional Constitutional: as per HPI - Constitutional Vitals: Temp Pulse Resp BP Pulse Ox 98.7 F 96 16 160/79 91 06/08/17 22:46 06/08/17 22:46 06/08/17 22:46 06/08/17 22:46 06/08/17 22:46 General appearance: Present: A&O X 3 (frail appearing elderly male), no acute distress, answers questions appropriately - Head Head exam: Present: atraumatic, normocephalic - Eye Eye exam: Present: conjuntiva pink, sclera anicteric - Respiratory Respiratory exam: Present: CTAB. Absent: respiratory distress, wheezes - Cardiovascular Cardiovascular exam: Present: RRR, +S1, +S2. Absent: diastolic murmur, gallop, rubs, systolic murmur - GI/Abdominal GI/Abdominal exam: Present: normal bowel sounds, soft, no peritoneal signs. Absent: distended, tenderness - Extremities Exam Extremities exam: Present: warm, radial pulses palpable and symmetrical. Absent : calf tenderness, cyanotic, pedal edema - Neurological Exam Neurological exam: Present: alert, oriented X3 Internal Med - H&P Results - Labs CBC & Chem 7: 06/08/17 16:07 06/08/17 16:07
[2017-06-09 05:29] LABS: Basophils % 0.2 %; Eosinophils % 0.2 %; Hematocrit 31.5 % (37.5-50.1); Immature Granulocytes % 0.4 % (0-4); Lymphocytes # 1.1 K/mcL (0.6-4.6); Lymphocytes % 13.6 %; Mean Corpuscular HGB Conc 32.7 g/dL (31.6-35.5); Mean Corpuscular Hemoglobin 30.4 pg (28.0-33.3); Mean Corpuscular Volume 92.9 fL (83.0-100.0); Mean Platelet Volume 10.6 fL (9.4-12.4); Monocytes # 0.9 K/mcL (0.0-1.3); Monocytes % 11.2 %; Neutrophils # 6.1 K/mcL (1.6-8.9); Platelet Count 221 K/mcL (140-400); Red Blood Count 3.39 M/mcL (4.19-5.50); Red Cell Distribution Width 14.9 % (11.5-14.5); Segmented Neutrophils % 74.4 %
[2017-06-09 05:31] LABS: Hemoglobin 10.3 g/dL (12.9-16.9)
[2017-06-09 05:45] LABS: BUN/Creatinine Ratio 25 (6-26); Blood Urea Nitrogen 30 mg/dL (8-23); Calcium 8.4 mg/dL (8.6-10.3); Carbon Dioxide 25 mEq/L (23-29); Chloride 112 mEq/L (98-107); Chol/HDL Ratio 2.8 (0-4.9); Cholesterol 133 mg/dL (< 200); Glucose 88 mg/dL (70-105); HDL Cholesterol 48 mg/dL (40-59); LDL Cholesterol,Calculated 70 mg/dL (0-99); Magnesium 2.2 mg/dL (1.6-2.6); Osmolality,Calculated 296 (280-300); Phosphorous 1.9 mg/dL (2.7-4.5); Potassium 3.8 mEq/L (3.5-5.1); Sodium 140 mEq/L (136-145); Triglycerides 77 mg/dL (< 150); eGFR For African Americans > 60 (> 60); eGFR For Non-African Americans 60 (> 60)
[2017-06-09] MEDS ORDERED: *HR* FentaNYL (PF) 100 MCG/2 ML VIAL ONE (10:13)
[2017-06-09] MEDS ORDERED: *HR* Midazolam HCl 5 MG/5 ML VIAL IVP ONE ×2 (10:13→10:38)
--- NOTE | 2017-06-09 10:24 | Gastroenterology Consult Note ---
<Gordo Lewis - Last Filed: 06/09/17 10:22> Date of Encounter: 06/09/17 Time of Encounter: 09:35 - Assessment and plan (1) UGIB (upper gastrointestinal bleed) Status: Resolved Assessment and plan: Pt with coffee-ground emesis and melena for the past several days. Plan for EGD today to r/o esophagitis, gastritis, duodenitis, PUD, MW tear, or AVM. Keep pt NPO for procedure. Continue PPI drip. (2) Coffee ground emesis Status: Acute Assessment and plan: As above. (3) Anemia Status: Acute Assessment and plan: Hgb on admission was 13.5 and this AM Hgb 10.3. Continue to monitor CBC and transfuse PRBC as needed. Qualifiers: Anemia type: unspecified type Qualified Code(s): D64.9 - Anemia, unspecified - Time Spent With Patient Total time spent is greater than 50% in coordination of care (as documented) at patient's floor/unit and/or counseling patient: GI History of Present Illness - Data of Consult Patient: new to practice Consult date: 06/09/17 Requesting Physician: Jose L Ramsay - Consult Narrative Reason for consult: UGIB, coffee ground emesis/melena History of present illness: Mr. Francis is a 71 year old male with PMHx of head and neck cancer, CAD, COPD, GI bleed, HTN, hypothyroidism who presented for evaluation of chest pain and worsening episodes of coffee ground emesis. Pt states he has been feeling weak for the past two weeks with pressure like localized chest pain and for the past two days he has been having coffee ground emesis along with black stools. We were consulted to evaluate his coffee ground emesis and melena. Hgb on admission was 13.5 and this AM Hgb 10.3. Procedures: EGD 05/28/2016 Dr. Culver: Erythematous duodenopathy, gastritis Colonoscopy 02/20/2004 Dr. Amador: Hyperplastic polyp. NSAIDs: None Anticoagulation: None Past Med Surg Social Fam HX - Past Medical History Medical history: cancer, coronary artery disease, GI bleed, hyperlipidemia, hypertension, myocardial infarction, thyroid disease, other Psychiatric history: no psych history - Past Surgical History Surgical History: cancer surgery, cholecystectomy, coronary bypass (CABG), tracheostomy, other - Social History Smoking Status: Former smoker Smokeless Tobacco Status: No Alcohol use: none Drug use: none - Family History Father History Unknown: Yes - Gastrointestinal Gastrointestinal: Present: as per HPI - Constitutional Constitutional: as per HPI - EENT Eyes: as per HPI Ears: Present: as per HPI Nose, mouth and throat: Present: as per HPI - Cardiovascular Cardiovascular ROS: Present: as per HPI - Respiratory Respiratory IM: Present: as per HPI - Genitourinary Genitourinary: Absent: change in color, Urinary frequency - Neurological ROS Neurological GI: Present: as per HPI - Hematologic/Lymphatic Hematologic/Lymphatic pediatric: Present: as per HPI - Musculoskeletal Musculoskeletal ROS GI: Present: as per HPI - Integumentary Integumentary GI: Present: as per HPI - Psychiatric ROS Psychiatric GI: Present: as per HPI - Endocrine Endocrine IM: Present: as per HPI - Constitutional Vitals: Temp Pulse Resp BP Pulse Ox 98.5 F 84 16 127/69 93 06/09/17 10:09 06/09/17 06:33 06/09/17 06:33 06/09/17 06:33 06/09/17 06:33 General appearance: Present: cooperative, A&O X 3, no acute distress, answers questions appropriately - Head Head exam: Present: atraumatic, normocephalic - Eye Eye exam: Present: normal appearance, sclera anicteric - ENT ENT exam: Present: mucous membranes dry - Neck Neck exam general surgery: Present: normal inspection, trachea midline - Respiratory Respiratory exam: Present: CTAB. Absent: rales, rhonchi - Cardiovascular Cardiovascular exam: Present: RRR, +S1, +S2 - GI/Abdominal GI/Abdominal exam: Present: soft, no peritoneal signs. Absent: distended, firm , guarding, tenderness Additional comments: PEG tube in place - Rectal Rectal exam: Present: deferred - Extremities Exam Extremities exam: Present: warm - Neurological Exam Neurological exam: Present: no focal deficits - Psychiatric Psychiatric exam: Present: normal affect, normal mood - Skin Skin exam: Present: dry, intact, normal color, warm Results - Labs CBC & Chem 7: 06/09/17 04:59 06/09/17 04:59 Labs: Last Result Calcium 8.4 mg/dL (8.6-10.3) L 01/12/18 04:59 Troponin I < 0.03 ng/mL (< 0.04) 06/09/17 04:59 Triglycerides 77 mg/dL (< 150) 06/09/17 04:59 Entire Visit Hgb 10.3 g/dL (12.9-16.9) L D 06/09/17 04:59 Hct 31.5 % (37.5-50.1) L 06/09/17 04:59 - ABG ABG results: PT/INR, D-dimer D-Dimer 2049 ng/mLFEU (0-500) H 06/08/17 16:07 Consult Discharge Plan - Plan Instructions: Gastrointestinal Bleeding (DC), Anemia (DC) Referrals: [facility] [Outside] <Earl Charles - Last Filed: 06/14/17 13:53> Date of Encounter: 06/09/17 - Time Spent With Patient Total time spent is greater than 50% in coordination of care (as documented) at patient's floor/unit and/or counseling patient: GI History of Present Illness - Data of Consult Requesting Physician: Jose L Ramsay - Consult Narrative History of present illness: Mr. Francis is a 71 year old male - Constitutional Vitals: Temp Pulse Resp BP Pulse Ox 98.8 F 89 16 164/80 94 06/09/17 14:30 06/09/17 14:30 06/09/17 14:30 06/09/17 14:30 06/09/17 14:30 Results - Labs CBC & Chem 7: 06/09/17 04:59 06/09/17 04:59 Labs: Last Result Calcium 8.4 mg/dL (8.6-10.3) L 06/09/17 04:59 Troponin I < 0.03 ng/mL (< 0.04) 06/09/17 11:54 Triglycerides 77 mg/dL (< 150) 06/09/17 04:59 Entire Visit Hgb 10.3 g/dL (12.9-16.9) L D 06/09/17 04:59 Hct 31.5 % (37.5-50.1) L 06/09/17 04:59 - ABG ABG results: PT/INR, D-dimer D-Dimer 2049 ng/mLFEU (0-500) H 01/11/18 16:07 - Attending Attestation I have personally performed a face to face evaluation on this patient. I have reviewed and agree with the care plan. History and Exam by me shows:Plan EGD today and further recommendations post endoscopy
[2017-06-09] MEDS ORDERED: *HR* FentaNYL (PF) 100 MCG/2 ML VIAL IVP ONE (10:38)
--- NOTE | 2017-06-09 12:29 | Electrocardiograph Report ---
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
[2017-06-09 14:33] VITALS: BP 164/80
--- NOTE | 2017-06-09 16:18 | Discharge Summary ---
Date of Encounter: 06/09/17 Time of Encounter: 16:13 - Discharge Diagnosis (1) UGIB (upper gastrointestinal bleed) Priority: Primary Status: Acute Comments: No ongoing melena or hematemesis. His hemoglobin is stable. His ECG is negative and he will be discharged on a PPI and carafate. He was discharge in stable conditions. Code(s): K92.2 - Gastrointestinal hemorrhage, unspecified (2) Abdominal pain Priority: Primary Status: Acute Qualifiers: Abdominal location: epigastric Qualified Code(s): R10.13 - Epigastric pain (3) Anemia Priority: Secondary Status: Acute Comments: Acute blood loss anemia. Stable but he will need continued PPI and he should have a repeat CBC within several months following discharge. Qualifiers: Anemia type: unspecified type Qualified Code(s): D64.9 - Anemia, unspecified (4) Chest pain Priority: Secondary Status: Acute Comments: His chest pain is in the setting of known CAD but with a recent negative w/u at the [facility]. His w/u at [facility] for cp was negative including negative troponins and an ECG without ischemic changes. His chest pain was attributed to his upper GIB and had resolved. Qualifiers: Chest pain type: other chest pain Qualified Code(s): R07.89 - Other chest pain; R07.8 - Other chest pain - Discharge Medications Home Medications: Acetaminophen [Tylenol] 650 tab PO Q6HR PRN 04/02/15 [History] Albuterol Sulfate [Albuterol Inhaler] 2 puff IH Q6HR PRN 04/02/15 [History] Lisinopril [Zestril] 10 mg PO DAILY 05/26/16 [History] Dicyclomine [Bentyl] 10 mg PO QID PRN #20 capsule 07/15/16 [Rx] Sucralfate [Carafate] 1 gm PO QIDAC #60 tablet 09/02/16 [Rx] Diclofenac Sodium [Voltaren] 2 gm TP Q8H 06/09/17 [History] Isosorbide MONOnitrate (24 HR) [Imdur] 30 mg PO DAILY 06/09/17 [History] Levothyroxine Sodium [Levoxyl] 100 mcg PO DAILY 06/09/17 [History] Pantoprazole Sodium [Protonix] 40 mg PO BID 06/09/17 [History] Vit C/E/Zn/Coppr/Lutein/Zeaxan [Preservision Areds 2 Softgel] 1 cap PO BID 06/09 [History] Allergies/Adverse Reactions: 3 Allergy/AdvReac Type Severity Reaction Status Date / Time ezetimibe [From Zetia] Allergy Swelling Verified 05/26/16 19:37 of Lip/Tongue/Throat Procedures/tests Complete & Pending: Procedures Performed prior 72 hours Category Date Time Status EV echocardiogram Routine Y 06/09/17 03:27 Completed Date of admission: 06/09/17 00:05 Primary care physician: PCP AR Consults: 06/09/17 10:57 Consult to Speech Therapy [CONS] Stat Comment: Evaluate, develop and implement POC Reason for Consult: per Dr. Starks gastroenterology wants to prescribe Carafate p.o wants to make sure he can swallow. Call Completed: No Discharging clinician: Jose L Ramsay - Patient Status Disposition: Home, Self-Care Condition: Fair - Discharge Instructions Instructions: Gastrointestinal Bleeding (DC), Anemia (DC) Follow Up With: [facility] [Outside] Forms: ED Satisfaction Letter Interval History: The patient is a 71 year old male with PMHx of head and neck cancer, CAD, COPD, GI bleed, HTN, hypothyroidism who presented with an episode of coffee ground emesis and reportedly dark black stool. Pt states he has been feeling weak for the past two weeks with pressure like localized chest pain and for the past two days he has been having coffee ground emesis along with black stools. We were consulted to evaluate his coffee ground emesis and melena. His Hgb ad dropped from 13.5 to 10.3. GI was consulted and performed an EGD to r/o esophagitis, gastritis, duodenitis, PUD, MW tear, or AVM. He was kept NPO for procedure and a PPI drip was started. He had no further melena throughout his hopital course. His Hgb did not drop further and his EGD was unrealing. He was discharged in stable condition on a PPI and Carafate. Hospital course: Mr. Francis is a 71 year old male - Time Spent with Patient Total time spent providing and/or coordinating discharge services: Greater than 30 minutes - Constitutional Vitals: Temp Pulse Resp BP Pulse Ox 98.8 F 89 16 164/80 94 06/09/17 14:30 06/09/17 14:30 06/09/17 14:30 06/09/17 14:30 06/09/17 14:30 General appearance: Present: A&O X 3 (frail appearing elderly male), no acute distress, answers questions appropriately - Head Head exam: Present: atraumatic, normocephalic - Eye Eye exam: Present: EOMI, PERRL, conjuntiva pink, sclera anicteric - Respiratory Respiratory exam: Present: CTAB. Absent: stridor, wheezes, tachypnea - Cardiovascular Cardiovascular exam: Present: RRR, +S1, +S2. Absent: JVD - GI/Abdominal GI/Abdominal exam: Present: normal bowel sounds, soft. Absent: firm, guarding, rigid, tenderness - Neurological Exam Neurological exam: Present: CN II-XII intact, oriented X3, no focal deficits - Psychiatric Psychiatric exam: Present: normal affect, normal mood - Skin Skin exam: Present: dry, warm. Absent: mottled, rash, vesicles
== END 2017-06-09 16:37 | disposition home or self-care (01) | DRG 378 ==
LOC: 3ANU 15:34 → EMEROO 15:34 → 3ANU 22:15
PROVIDERS: ADMIT Internal Medicine; ATTEND Internal Medicine
PROC: ENDOERT (2017-06-09 11:00)

== ENCOUNTER 2017-09-11 21:30 | Inpatient (IN) ==
[2017-09-11] MEDS ORDERED: Pantoprazole 40 MG VIAL IVP ONE (21:37)
--- NOTE | 2017-09-11 21:41 | Emergency Department Note ---
Disposition Clinical Impression: Oropharynx cancer, GI bleed, Coffee ground emesis, Chest pain Disposition: Admitted As Inpatient Condition: Fair Chest Pain HPI - General Stated Complaint: chest pain Time Seen by Provider: 09/11/17 21:35 Source: patient, EMS Mode of arrival: EMS Limitations: no limitations Vital Signs Reviewed: Yes Nursing Notes Reviewed: Yes - History of Present Illness HPI Narrative: Patient presents to the ED if the chief complaint of chest pain and coffee- ground emesis. Patient has a history of four-vessel bypass several years ago. He also has a tongue malignancy, but is not undergoing current treatment. Called into the [facility] today for chest pain that started around 9 AM, describes it as a tight pressure in the middle of his chest, intermittent, not better or worse with anything in particular. Associated with some nausea and vomiting. He did have an episode of emesis at the [facility], which they described as coffee-ground. No known history of cirrhosis or esophageal varices. Denies any fever or chills, cough or rash. Does have chronic abdominal pain that is not any worse than usual. Also reports an episode of bloody bowel movement last week times one. Patient was sent over for chest pain evaluation, and reportedly had a normal troponin. However, after reviewing his medical record. His troponin was 0.029 with a normal upper limit of 0.015. Is denying any chest pain currently and states that he took nitroglycerin to either help with his angina, but it also helps of esophageal spasms Severity scale (1-10): 0 - Related Data Home Medications Medication Instructions Recorded Confirmed Acetaminophen [Tylenol] 650 tab PO Q6HR PRN 04/02/15 09/11/17 Albuterol Sulfate [Albuterol 2 puff IH Q6HR PRN 04/02/15 09/11/17 Inhaler] Lisinopril [Zestril] 10 mg PO DAILY 05/26/16 09/11/17 Diclofenac Sodium [Voltaren] 2 gm TP Q8H 06/09/17 09/11/17 Levothyroxine Sodium [Levoxyl] 100 mcg PO DAILY 06/09/17 09/11/17 Vit C/E/Zn/Coppr/Lutein/Zeaxan 1 cap PO BID 06/09/17 09/11/17 [Preservision Areds 2 Softgel] Lactose-Reduced Food [Ensure Plus] 1 bottle PO DAILY 09/11/17 09/11/17 Nitroglycerin [Nitrostat] 0.4 mg SL Q5M PRN 09/11/17 09/11/17 Nutrit Supp/Inulin/Fos/Fiber 250 ml PO 6XD 09/11/17 09/11/17 [Fibersource Hn Liquid] Omeprazole [PriLOSEC] 40 mg PO DAILY 09/11/17 09/11/17 Ondansetron HCl [Zofran] 4 mg PO Q8HR PRN 09/11/17 09/11/17 Previous Rx's Medication Instructions Recorded Dicyclomine [Bentyl] 10 mg PO QID PRN #20 capsule 07/15/16 Sucralfate [Carafate] 1 gm PO QIDAC #60 tablet 09/02/16 Allergies Allergy/AdvReac Type Severity Reaction Status Date / Time ezetimibe [From Zetia] Allergy Swelling Verified 09/11/17 22:25 of Lip/Tongue/Throat Review of Systems: As reviewed in the HPI. All other systems reviewed are negative or normal. Chest Pain PMH - Past Medical History Medical history: Reports: cancer, coronary artery disease, GI bleed, hyperlipidemia, hypertension, myocardial infarction, thyroid disease, other Surgical history: Reports: cancer surgery, cholecystectomy, coronary bypass ( CABG), tracheostomy, other Psychiatric history: Reports: no psych history - Social History Smoking Status: Former smoker Alcohol use: Reports: none Drug use: Reports: none Physical Exam - General Limitations: no limitations General appearance: alert, in no apparent distress - Head Head exam: atraumatic - ENT ENT exam: mucous membranes moist - Chest Chest inspection: Present: normal inspection, symmetric chest wall rise - Respiratory Respiratory exam: Present: normal lung sounds bilaterally - Cardiovascular Cardiovascular exam: Present: regular rate, normal rhythm, normal heart sounds - Abdominal Exam Abdominal exam: Present: soft, Non-Tender, other (G-tube in place, no erythema or bleeding). Absent: distention - Extremities Exam Extremities exam: Present: normal inspection, full ROM. Absent: tenderness, pedal edema - Neurological Exam Neurological exam: Present: alert, oriented X3 - Psychiatric Psychiatric exam: Present: normal affect, normal mood - Skin Skin exam: Present: warm, dry, intact, normal color Course Course Narrative: Patient presenting from the [facility] with chest pain. Reportedly, his troponin was negative. However, on his medical record of his elevated. He also had an episode of hematemesis while he was it. Had no further episodes. His vital signs are stable. We will repeat an H&H troponin and EKG. Be admitted for further workup. We will also start him on Protonix due to his coffee-ground emesis. - Reevaluation(s) Reevaluation #1: Patient admitted to the hospitalist service. He did request that we recheck labs as well as type and screen and hold 2 units in case the patient were to have continued bleeding. Those were ordered Vital Signs Temperature 99.7 F H 09/11/17 21:31 Pulse Rate 89 09/11/17 21:31 Respiratory Rate 14 09/11/17 21:31 Blood Pressure 171/97 09/11/17 21:31 O2 Sat by Pulse Oximetry 94 09/11/17 21:31 Temperature 99.7 F H 09/11/17 21:31 Pulse Rate 92 09/11/17 21:47 Respiratory Rate 14 09/11/17 21:47 Blood Pressure 118/86 09/11/17 21:47 O2 Sat by Pulse Oximetry 94 09/11/17 21:47 Oxygen Delivery Oxygen Delivery Room Air Chest Pain - Medical Records Medical records reviewed: Yes I reviewed the patient's medical records. - Lab Data Lab results reviewed: Yes I reviewed the patient's lab results. Result diagrams: 09/11/17 21:47 Lab Results 09/11/17 09/11/17 Range/Units 21:47 21:47 Hgb 13.4 (12.9-16.9) g/dL Hct 40.2 (37.5-50.1) % Troponin I 0.03 (< 0.04) ng/mL - Radiology Data Radiology results reviewed: Yes I reviewed the patient's radiology results. - EKG Data EKG attestation: Yes I reviewed and interpreted this EKG. EKG results narrative: Sinus rhythm, rate 97, LA interval 179, QRS 94, QTC 382, left axis deviation, no acute ischemic changes
[2017-09-11 21:57] LABS: Hematocrit 40.2 % (37.5-50.1); Hemoglobin 13.4 g/dL (12.9-16.9)
[2017-09-11] MEDS: Pantoprazole 40 MG in 0.9 % Sodium Chloride Mini Bag 100 ML IVC SCH (22:00)
[2017-09-11 22:58] LABS: Basophils # 0.1 K/mcL (0.0-0.2); Basophils % 0.5 %; Eosinophils # 0.2 K/mcL (0.0-0.6); Eosinophils % 1.1 %; Hematocrit 41.3 % (37.5-50.1); Hemoglobin 13.5 g/dL (12.9-16.9); Immature Granulocytes % 0.3 % (0-4); Lymphocytes # 0.9 K/mcL (0.6-4.6); Lymphocytes % 6.5 %; Mean Corpuscular HGB Conc 32.7 g/dL (31.6-35.5); Mean Corpuscular Hemoglobin 28.8 pg (28.0-33.3); Mean Corpuscular Volume 88.1 fL (83.0-100.0); Mean Platelet Volume 11.5 fL (9.4-12.4); Monocytes % 7.2 %; Neutrophils # 11.6 K/mcL (1.6-8.9); Platelet Count 319 K/mcL (140-400); Red Blood Count 4.69 M/mcL (4.19-5.50); Red Cell Distribution Width 14.4 % (11.5-14.5); Segmented Neutrophils % 84.4 %
[2017-09-11 23:07] LABS: Prothrombin Time 10.8 Seconds (9.4-12.1)
[2017-09-11 23:10] LABS: Activated Partial Thrombo Time 26.9 Seconds (26.0-36.0)
[2017-09-11 23:17] LABS: Alanine Aminotransferase 14 Units/L (7-52); Albumin 4.1 g/dL (3.5-5.7); Albumin/Globulin Ratio 1.2 (1.1-2.2); Alkaline Phosphatase 67 Units/L (34-104); Aspartate Amino Transferase 27 Units/L (13-39); BUN/Creatinine Ratio 31 (6-26); Bilirubin,Total 0.4 mg/dL (0.3-1.0); Blood Urea Nitrogen 29 mg/dL (8-23); Carbon Dioxide 24 mEq/L (23-29); Chloride 107 mEq/L (98-107); Globulin 3.5 g/dL (2.4-3.5); Glucose 102 mg/dL (70-105); Osmolality,Calculated 288 (280-300); Potassium 4.3 mEq/L (3.5-5.1); Sodium 136 mEq/L (136-145); Total Protein 7.6 g/dL (6.4-8.9); eGFR For African Americans > 60 (> 60); eGFR For Non-African Americans > 60 (> 60)
[2017-09-12] MEDS ORDERED: Acetaminophen 325 MG TABLET PO PRN (01:39)
[2017-09-12] MEDS ORDERED: Naloxone 0.4 MG/ML INJ IVP PRN (01:39)
[2017-09-12] MEDS ORDERED: Ipratropium/Albuterol Neb 3 ML IH PRN (01:45)
--- NOTE | 2017-09-12 01:51 | Internal Med History&Physical ---
Date of Encounter: 09/12/17 Time of Encounter: 01:00 Internal Medicine - H&P: HPI Chief complaint: Chest pain Admitted From: Intrahospital Transfer Plans for Post Hospital Care: Home History of present illness: Mr. Francis is a 71 year old male transferred from [facility] for chest pain since this morning. Past medical history is significant for hypertension, CAD S /P CABG, GERD, esophagitis, history of head and the neck cancer S/P surgery need PEG tube feeding, history of GI bleed recently in May 2017. Patient said his chest pain started around 9 AM, located on mid chest, radiated to right neck, stabbing, 10 out of 10, constant until 6-7 PM after take nitroglycerin. When I saw patient in floor, he is pain-free. Patient denies shortness of breath or diaphoresis. He has nausea and vomited twice, the vomiting was coffee ground emesis. Patient denies dizziness. Patient has bowel movement this morning, stool color is yellow, denies black stool. Patient is not on blood thinner or NSAID. Past Med Surg Social Fam HX - Past Medical History Medical history: cancer, coronary artery disease, GI bleed, hyperlipidemia, hypertension, myocardial infarction, thyroid disease, other Psychiatric history: no psych history - Past Surgical History Surgical History: cancer surgery, cholecystectomy, coronary bypass (CABG), tracheostomy, other - Social History Smoking Status: Former smoker Smokeless Tobacco Status: No Alcohol use: none Drug use: none - Family History Mother History Unknown: Yes Internal Medicine - H&P: Meds Acetaminophen [Tylenol] 650 tab PO Q6HR PRN 04/02/15 [History] Albuterol Sulfate [Albuterol Inhaler] 2 puff IH Q6HR PRN 04/02/15 [History] Lisinopril [Zestril] 10 mg PO DAILY 05/26/16 [History] Dicyclomine [Bentyl] 10 mg PO QID PRN #20 capsule 07/15/16 [Rx] Sucralfate [Carafate] 1 gm PO QIDAC #60 tablet 09/02/16 [Rx] Diclofenac Sodium [Voltaren] 2 gm TP Q8H 06/09/17 [History] Levothyroxine Sodium [Levoxyl] 100 mcg PO DAILY 06/09/17 [History] Vit C/E/Zn/Coppr/Lutein/Zeaxan [Preservision Areds 2 Softgel] 1 cap PO BID 06/09 [History] Lactose-Reduced Food [Ensure Plus] 1 bottle PO DAILY 09/11/17 [History] Nitroglycerin [Nitrostat] 0.4 mg SL Q5M PRN 09/11/17 [History] Nutrit Supp/Inulin/Fos/Fiber [Fibersource Hn Liquid] 250 ml PO 6XD 09/11/17 [ History] Omeprazole [PriLOSEC] 40 mg PO DAILY 09/11/17 [History] Ondansetron HCl [Zofran] 4 mg PO Q8HR PRN 09/11/17 [History] 3 Allergy/AdvReac Type Severity Reaction Status Date / Time ezetimibe [From Zetia] Allergy Swelling Verified 09/11/17 22:25 of Lip/Tongue/Throat All Systems PM: A 10-system review of systems was performed and is negative for pertinent findings except as documented above in the HPI. - Constitutional Vitals: Temp Pulse Resp BP Pulse Ox 97.8 F 106 17 155/82 96 09/12/17 00:04 09/12/17 00:04 09/12/17 00:04 09/12/17 00:04 09/12/17 00:04 General appearance: Present: A&O X 3, no acute distress, answers questions appropriately - Head Head exam: Present: atraumatic, normocephalic - Eye Eye exam: Present: PERRL, conjuntiva pink, sclera anicteric Pupils: Present: PERRL - Neck Neck exam general surgery: Present: supple, trachea midline. Absent: lymphadenopathy Additional comments: Scar of neck surgery - Respiratory Respiratory exam: Present: CTAB. Absent: accessory muscle use, rales, rhonchi, wheezes - Cardiovascular Cardiovascular exam: Present: RRR, +S1, +S2. Absent: diastolic murmur, gallop, rubs, systolic murmur - GI/Abdominal GI/Abdominal exam: Present: normal bowel sounds, soft, no peritoneal signs. Absent: distended, tenderness Additional comments: PEG tube in place. - Extremities Exam Extremities exam: Present: warm, radial pulses palpable and symmetrical. Absent : calf tenderness, cyanotic, pedal edema - Neurological Exam Neurological exam: Present: CN II-XII intact, oriented X3, no focal deficits. Absent: pronater drift, facial droop, speech deficit - Skin Skin exam: Present: dry, intact Internal Med - H&P Results - Labs CBC & Chem 7: 09/11/17 22:46 09/11/17 22:46 - EKG Data -: EKG Interpreted by Myself EKG shows normal: sinus rhythm Rate: normal - Assessment and plan (1) Chest pain Current Visit: Yes Status: Acute Assessment and plan: Patient has chest pain without shortness of breath or diaphoresis. Patient has nausea with vomiting. Patient has history of CAD S/P CABG, need to rule out ACS. Patient also has history of esophagitis, which also account for chest pain. EKG is unremarkable, patient is pain-free at this point. - Continue cardiac monitoring - Track 3 sets of troponin - Echocardiogram in a.m. Qualifiers: Chest pain type: precordial pain Qualified Code(s): R07.2 - Precordial pain (2) Coffee ground emesis Current Visit: Yes Status: Acute Assessment and plan: Patient has history of GI bleed recently. Has coffee ground emesis, need to rule out GI bleed. Patient has a stable H&H and vitals at this point. - Nothing by mouth - IV fluid - IV PPI - Closely monitor H&H and vitals - GI consult in a.m. (3) GI bleed Current Visit: Yes Status: Acute Assessment and plan: Management as above Qualifiers: GI bleed type/associated pathology: unspecified gastrointestinal hemorrhage type Qualified Code(s): K92.2 - Gastrointestinal hemorrhage, unspecified (4) Oropharynx cancer Current Visit: Yes Status: Chronic Assessment and plan: S/P surgery, need PEG tube feeding (5) DVT prophylaxis Current Visit: No Status: Acute Assessment and plan: EPCD (6) CAD (coronary artery disease) Current Visit: No Status: Chronic Assessment and plan: History of CAD S/P CABG. Complain of chest pain. Rule out ACS, workup as above Qualifiers: Coronary Disease-Associated Artery/Lesion type: bypass graft [place] vs. transplanted heart: redding heart Associated angina: without angina Qualified Code(s): I25.810 - Atherosclerosis of coronary artery bypass graft(s) without angina pectoris (7) HTN (hypertension) Current Visit: No Status: Chronic Assessment and plan: Hydralazine IV when necessary Qualifiers: Hypertension type: essential hypertension Qualified Code(s): I10 - Essential (primary) hypertension - Time Spent With Patient Total time spent is greater than 50% in coordination of care (as documented) at patient's floor/unit and/or counseling patient: 40 minutes Greater than 35 minutes
[2017-09-12] MEDS: 0.9 % Sodium Chloride 1,000 ML IVC SCH ×2 (02:02→13:14)
[2017-09-12] MEDS: Pantoprazole 40 MG in 0.9 % Sodium Chloride Mini Bag 100 ML IVC SCH ×5 (03:11→23:25)
[2017-09-12] MEDS ORDERED: Nitroglycerin 0.4 MG TAB.SUBL SL PRN (04:01)
[2017-09-12 05:23] LABS: Basophils # 0.1 K/mcL (0.0-0.2); Basophils % 0.8 %; Eosinophils # 0.2 K/mcL (0.0-0.6); Eosinophils % 2.5 %; Hemoglobin 12.1 g/dL (12.9-16.9); Immature Granulocytes % 0.1 % (0-4); Lymphocytes # 1.3 K/mcL (0.6-4.6); Lymphocytes % 16.7 %; Mean Corpuscular HGB Conc 33.6 g/dL (31.6-35.5); Mean Corpuscular Hemoglobin 29.6 pg (28.0-33.3); Mean Platelet Volume 10.5 fL (9.4-12.4); Monocytes # 0.8 K/mcL (0.0-1.3); Monocytes % 9.6 %; Neutrophils # 5.5 K/mcL (1.6-8.9); Platelet Count 267 K/mcL (140-400); Red Blood Count 4.09 M/mcL (4.19-5.50); Red Cell Distribution Width 14.5 % (11.5-14.5); Segmented Neutrophils % 70.3 %
[2017-09-12 05:42] LABS: BUN/Creatinine Ratio 26 (6-26); Blood Urea Nitrogen 23 mg/dL (8-23); Calcium 9.1 mg/dL (8.6-10.3); Carbon Dioxide 26 mEq/L (23-29); Chloride 109 mEq/L (98-107); Glucose 86 mg/dL (70-105); Magnesium 2.2 mg/dL (1.6-2.6); Osmolality,Calculated 295 (280-300); Potassium 3.8 mEq/L (3.5-5.1); Sodium 141 mEq/L (136-145); eGFR For African Americans > 60 (> 60); eGFR For Non-African Americans > 60 (> 60)
[2017-09-12 05:43] LABS: Troponin I 0.03 ng/mL (< 0.04)
--- NOTE | 2017-09-12 09:05 | Electrocardiograph Report ---
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
--- NOTE | 2017-09-12 11:24 | Gastroenterology Consult Note ---
<Butch Manceran Luisa - Last Filed: 09/12/17 11:17> Date of Encounter: 09/12/17 Time of Encounter: 10:30 - Assessment and plan (1) UGIB (upper gastrointestinal bleed) Status: Acute Assessment and plan: Pt had coffee ground emesis and chest pain yesterday. He had esophageal ulcers in May, did not follow up for repeat EGD. Hgb is stable will continue PPI, schedule for EGD in the am. - Time Spent With Patient Total time spent is greater than 50% in coordination of care (as documented) at patient's floor/unit and/or counseling patient: GI History of Present Illness - Data of Consult Patient: known to practice within the last 3 years Consult date: 09/12/17 Requesting Physician: Helena Rios - Consult Narrative Reason for consult: coffee ground emesis History of present illness: Mr. Francis is a 71 year old male transferred from [facility] for chest pain since this morning. Past medical history is significant for hypertension, CAD S /P CABG, GERD, esophagitis, history of head and the neck cancer S/P surgery, PEG tube feeding, history of GI bleed in May 2017. Patient said his chest pain started around 9 AM, located on mid chest, radiated to right neck, stabbing , 10 out of 10, constant until 6-7 PM after take nitroglycerin. Patient denies shortness of breath or diaphoresis. He had nausea and vomited twice yesterday with small amount of coffee ground emesis. Patient denies dizziness. Patient has bowel movement this morning, stool color is yellow. He denies bright red, black or tarry stool. Hgb was 12.1 on admission. He denies any abdominal or chest pain at this time. He is denying any nausea or vomiting today. No GERD or dysphagia. He is asking to go home. He was to have a repeat EGD in May but cancelled his follow up appointments twice. EGD: 06/15 non-bleeding esophageal ulcers chronic gastritis normal esophagus, brushing negative for tumor cells Colon: 02/20/04 Dr Amador Hyperplastic polyp Nsaids: none Anticoagulation: none Past Med Surg Social Fam HX - Past Medical History Medical history: cancer, coronary artery disease, GI bleed, hyperlipidemia, hypertension, myocardial infarction, thyroid disease, other Psychiatric history: no psych history - Past Surgical History Surgical History: cancer surgery, cholecystectomy, coronary bypass (CABG), tracheostomy, other - Social History Smoking Status: Former smoker Smokeless Tobacco Status: No Alcohol use: none Drug use: none - Family History Mother History Unknown: Yes Review of Systems: GI: as per [place] GENERAL: denies fever or chills EYES: denies yellow discoloration ENT: denies pain with swallowing or difficulty swallowing CARDIO: denies chest pain, palpitations RESP: No Shortness of breath with exertion : denies change in color of urine NEURO: denies any weakness HEME: Denies any bruising MS: chronic back and joint pain. DERM: denies rash or itching PSYCH: Denies history of anxiety or depression - Constitutional Vitals: Temp Pulse Resp BP Pulse Ox 98.7 F 71 17 145/81 98 09/12/17 11:06 09/12/17 11:06 09/12/17 11:06 09/12/17 11:06 09/12/17 11:06 Exam: CONSTITUTIONAL:~alert, no acute distress.~HEAD:~normocephalic.~EYES:~no jaundice.~NECK:~trach scar well healed, no obvious swelling.~HEART:~regular rate and rhythm, no murmurs, midline chest well healed.~LUNGS:~bilateral fair air entry.~ABDOMEN:~non distended, soft, non tender, no masses palpable, no organomegaly, peg tube without redness or drainage.~RECTAL EXAM:~Deferred.~ EXTREMITIES:~no clubbing, cyanosis or edema.~SKIN:~no stigmata of chronic liver disease.~NEUROLOGIC:~no obvious focal defect.~~~~ Results - Labs CBC & Chem 7: 09/12/17 05:02 09/12/17 05:02 Labs: Last Result Calcium 9.1 mg/dL (8.6-10.3) 09/12/17 05:02 Troponin I 0.03 ng/mL (< 0.04) 09/12/17 05:02 Entire Visit Hgb 12.1 g/dL (12.9-16.9) L 09/12/17 05:02 Hct 36.0 % (37.5-50.1) L 09/12/17 05:02 PT 10.8 Seconds (9.4-12.1) 09/11/17 22:46 Total Bilirubin 0.4 mg/dL (0.3-1.0) 09/11/17 22:46 AST 27 Units/L (13-39) 09/11/17 22:46 ALT 14 Units/L (7-52) 09/11/17 22:46 - ABG ABG results: PT/INR, D-dimer PT 10.8 Seconds (9.4-12.1) 09/11/17 22:46 Consult Discharge Plan - Plan Instructions: Gastritis (DC) [facility]errals[facility] Provider[facility] - 09/20/17 9:30 am (Please follow up as schedule...) <Earl Charles - Last Filed: 09/20/17 05:33> Date of Encounter: 09/12/17 - Time Spent With Patient Total time spent is greater than 50% in coordination of care (as documented) at patient's floor/unit and/or counseling patient: GI History of Present Illness - Data of Consult Requesting Physician: Helena Rios - Consult Narrative History of present illness: Mr. Francis is a 71 year old male - Constitutional Vitals: Temp Pulse Resp BP Pulse Ox 98.2 F 67 20 168/83 97 09/13/17 12:38 09/13/17 12:38 09/13/17 12:38 09/13/17 12:38 09/13/17 12:38 Results - Labs CBC & Chem 7: 09/13/17 10:19 09/13/17 10:19 Labs: Last Result Calcium 9.0 mg/dL (8.6-10.3) 09/13/17 10:19 Troponin I < 0.03 ng/mL (< 0.04) 09/12/17 10:46 Stool Occult Blood Negative (Negative) 09/12/17 10:15 Entire Visit Hgb 11.9 g/dL (12.9-16.9) L 09/13/17 10:19 Hct 35.5 % (37.5-50.1) L 09/13/17 10:19 PT 10.8 Seconds (9.4-12.1) 09/11/17 22:46 Total Bilirubin 0.4 mg/dL (0.3-1.0) 09/11/17 22:46 AST 27 Units/L (13-39) 09/11/17 22:46 ALT 14 Units/L (7-52) 09/11/17 22:46 - ABG ABG results: PT/INR, D-dimer PT 10.8 Seconds (9.4-12.1) 09/11/17 22:46 - Attending Attestation Agree with EGD to follow up healing of Esophageal ulcers. Proceed with the same. I examined this patient and my medical decision-making was reviewed with the Resident Physician. I agree with the documented findings, disposition and treatment plan as described except to the extent set forth below.
[2017-09-13] MEDS ORDERED: 0.9 % Sodium Chloride 1,000 ML ONE (00:29)
[2017-09-13] MEDS: Pantoprazole 40 MG in 0.9 % Sodium Chloride Mini Bag 100 ML IVC SCH ×2 (05:21→10:14)
--- NOTE | 2017-09-13 10:22 | Discharge Summary ---
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 transplanted heart: [place] heart Associated angina: without angina Qualified Code(s): I25.810 - Atherosclerosis of coronary artery bypass graft(s) without angina pectoris (5) Coffee ground emesis Priority: Primary Status: Acute (6) Chest pain Priority: Primary Status: Acute Qualifiers: Chest pain type: precordial pain Qualified Code(s): R07.2 - Precordial pain Hospital course: Mr. Francis is a 71 year old male transferred from [facility] for chest pain since the morning. Past medical history is significant for hypertension, CAD S/ P CABG, GERD, esophagitis, history of head and the neck cancer S/P surgery need PEG tube feeding, history of GI bleed recently in May 2017. He had a stress test per the and himself which was normal in June of this year at the [facility]. This time around, his EKG was with no acute ST or T-wave changes. He also had normal troponins 3. While hospitalized he has one episode of coffee- ground emesis which was minimal. Hemoglobin was 13.4 on admission and went down to 12.1. At discharge was 11.9. He had no recurrence of these episodes. He underwent an EGD which showed chronic gastritis with no evidence of a bleed. There was LA grade A esophagitis with no bleeding. The patient had a history of GI bleed back in May with an EGD breath and showed nonbleeding esophageal ulcers and chronic gastritis. The patient was hemodynamically stable and underwent an echocardiogram which was with an EF of 55%. Mild left ventricular diastolic dysfunction. He was discharged in stable condition on . - Time Spent with Patient Total time spent providing and/or coordinating discharge services: Greater than 30 minutes - Discharge Medications Home Medications: Acetaminophen [Tylenol] 650 tab PO Q6HR PRN 04/02/15 [History] Albuterol Sulfate [Albuterol Inhaler] 2 puff IH Q6HR PRN 04/02/15 [History] Lisinopril [Zestril] 10 mg PO DAILY 05/26/16 [History] Dicyclomine [Bentyl] 10 mg PO QID PRN #20 capsule 07/15/16 [Rx] Sucralfate [Carafate] 1 gm PO QIDAC #60 tablet 09/02/16 [Rx] Diclofenac Sodium [Voltaren] 2 gm TP Q8H 06/09/17 [History] Levothyroxine Sodium [Levoxyl] 100 mcg PO DAILY 06/09/17 [History] Vit C/E/Zn/Coppr/Lutein/Zeaxan [Preservision Areds 2 Softgel] 1 cap PO BID 06/09 [History] Lactose-Reduced Food [Ensure Plus] 1 bottle PO DAILY 09/11/17 [History] Nitroglycerin [Nitrostat] 0.4 mg SL Q5M PRN 09/11/17 [History] Nutrit Supp/Inulin/Fos/Fiber [Fibersource Hn Liquid] 250 ml PO 6XD 09/11/17 [ History] Omeprazole [PriLOSEC] 40 mg PO DAILY 09/11/17 [History] Ondansetron HCl [Zofran] 4 mg PO Q8HR PRN 09/11/17 [History] Allergies/Adverse Reactions: 3 Allergy/AdvReac Type Severity Reaction Status Date / Time ezetimibe [From Zetia] Allergy Swelling Verified 09/11/17 22:25 of Lip/Tongue/Throat Date of admission: 09/12/17 01:39 [facility] care physician: [facility] Consults: 09/12/17 01:47 Consult to Gastroenterology [CONS] Routine Consulting Provider: Gastroenterology [facility] Reason for Consult: Coffee ground emesis Call Completed: No 09/12/17 10:48 Consult to Nutrition [CONS] Routine Comment: Consulting Provider: NUTRITION Reason for Dietary Consult: Tube Feed Start & Manage Other:: Pt. has PEG tube - Constitutional Vitals: Temp Pulse Resp BP Pulse Ox 98.1 F 76 16 123/59 94 09/13/17 07:46 09/13/17 07:46 09/13/17 07:46 09/13/17 07:46 09/13/17 07:46 General appearance: Present: A&O X 3, no acute distress, answers questions appropriately Exam: GEN: NAD CVS: RRR. S1, S2, No m/r/g RESP: CTAB ABD: Soft, NT, ND, +BS EXT: No edema. 2+ DP. No rashes NEURO: Nonfocal - Patient Status Disposition: Home, Self-Care Condition: Fair Overall status at discharge: patient is progressing back to baseline - Discharge Instructions Instructions: Gastritis (DC) Follow Up With: [facility],PCP [Primary Care Provider] - 09/20/17 9:30 am (Please follow up as schedule...) Forms: ED Satisfaction Letter - Diet and Activity Activity: increase activity as tolerated Diet: regular diet
--- NOTE | 2017-09-13 10:49 | Anesthesia Evaluation PreOp ---
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 Lizeth, CABG, Tracheostomy, G-tube,) Alcohol Use: none Drug use: none Medications and Allergies Acetaminophen [Tylenol] 650 tab PO Q6HR PRN 04/02/15 [History] Albuterol Sulfate [Albuterol Inhaler] 2 puff IH Q6HR PRN 04/02/15 [History] Lisinopril [Zestril] 10 mg PO DAILY 05/26/16 [History] Dicyclomine [Bentyl] 10 mg PO QID PRN #20 capsule 07/15/16 [Rx] Sucralfate [Carafate] 1 gm PO QIDAC #60 tablet 09/02/16 [Rx] Diclofenac Sodium [Voltaren] 2 gm TP Q8H 06/09/17 [History] Levothyroxine Sodium [Levoxyl] 100 mcg PO DAILY 06/09/17 [History] Vit C/E/Zn/Coppr/Lutein/Zeaxan [Preservision Areds 2 Softgel] 1 cap PO BID 06/09 [History] Lactose-Reduced Food [Ensure Plus] 1 bottle PO DAILY 09/11/17 [History] Nitroglycerin [Nitrostat] 0.4 mg SL Q5M PRN 09/11/17 [History] Nutrit Supp/Inulin/Fos/Fiber [Fibersource Hn Liquid] 250 ml PO 6XD 09/11/17 [ History] Omeprazole [PriLOSEC] 40 mg PO DAILY 09/11/17 [History] Ondansetron HCl [Zofran] 4 mg PO Q8HR PRN 09/11/17 [History] 3 Allergy/AdvReac Type Severity Reaction Status Date / Time ezetimibe [From Zetia] Allergy Swelling Verified 09/11/17 22:25 of Lip/Tongue/Throat - Meds/Allergy Pre-op Review Medications Reviewed: Yes Allergies Reviewed: Yes Beta Blockers on Current Med List: No Anesthesia Results - Labs 09/13/17 10:19 09/13/17 10:19 Date of Study: 09/12/2017 Impressions: LVEF 55%. Normal LV chamber size, wall thickness and function. Mild left ventricular diastolic dysfunction. Normal right ventricular structure and function. Mild aortic sclerosis. Mean gradient 8 mmHg. No evidence of pulmonary hypertension. - Imaging EKG: report reviewed (SR) Anesthesia Exam Vital Signs/O2 Sat, Most Current Temp Pulse Resp BP Pulse Ox 98.1 F 76 16 123/59 94 09/13/17 07:46 09/13/17 07:46 09/13/17 07:46 09/13/17 07:46 09/13/17 10:16 NPO (# of Hours): > 8 hrs Pain Scale: 0 Pain Scale Used: Numeric (1 - 10) - HEENT Pupil (Motor): Pupils equal, EOMI Mallampati: IV Teeth: Edentulous Oral Opening: Greater than 3 - ATTENDANCE CLERK LOC: Oriented ATTENDANCE CLERK Motor: Normal RUE, Normal LUE, Normal RLE, Normal LLE, Normal Face ATTENDANCE CLERK Sensory: Normal: RUE, LUE, RLE, LLE, Face - Cardiac Rhythm: Regular Murmur: None JVD: No Carotid Bruit: No - Pulmonary Breath Sounds: bilateral Clear Respiratory Effort: Symmetrical Anesthesia Assess/Plan ASA Score: 4 Modified Daisy Scale for Level of Consciousness: Cooperative, oriented, and tranquil Anesthetic Plan: MAC Autologous Blood: Yes Monitoring Plan: Standard Monitors Recovery Plan: Other
[2017-09-13 10:59] LABS: Basophils # 0.1 K/mcL (0.0-0.2); Basophils % 0.9 %; Eosinophils # 0.4 K/mcL (0.0-0.6); Eosinophils % 5.7 %; Hematocrit 35.5 % (37.5-50.1); Hemoglobin 11.9 g/dL (12.9-16.9); Immature Granulocytes % 0.3 % (0-4); Lymphocytes % 15.9 %; Mean Corpuscular HGB Conc 33.5 g/dL (31.6-35.5); Mean Corpuscular Hemoglobin 30.1 pg (28.0-33.3); Mean Corpuscular Volume 89.6 fL (83.0-100.0); Monocytes # 0.6 K/mcL (0.0-1.3); Monocytes % 9.1 %; Neutrophils # 4.4 K/mcL (1.6-8.9); Platelet Count 239 K/mcL (140-400); Red Blood Count 3.96 M/mcL (4.19-5.50); Red Cell Distribution Width 14.6 % (11.5-14.5); Segmented Neutrophils % 68.1 %
[2017-09-13 11:23] LABS: BUN/Creatinine Ratio 20 (6-26); Blood Urea Nitrogen 17 mg/dL (8-23); Carbon Dioxide 27 mEq/L (23-29); Chloride 109 mEq/L (98-107); Glucose 85 mg/dL (70-105); Magnesium 2.1 mg/dL (1.6-2.6); Osmolality,Calculated 287 (280-300); Potassium 3.8 mEq/L (3.5-5.1); Sodium 138 mEq/L (136-145); eGFR For African Americans > 60 (> 60); eGFR For Non-African Americans > 60 (> 60)
[2017-09-13] MEDS ORDERED: *HR* Propofol 200 MG/20 ML VIAL IVP ONE (12:11)
[2017-09-13 12:41] VITALS: BP 168/83
--- NOTE | 2017-09-13 15:06 | Anesthesia Evaluation Post Op ---
Date of Encounter: 09/13/17 Time of Encounter: 13:25 - Vital Signs Vital Signs: 3 Vital Signs Time 1327 BP 186/95 Pulse 84 Resp 18 O2 Sat 99 - Lungs Lungs: Clear Ascult./Percussion - Airway Airway: Non-obstructed - Cardiovascular Regular Rate - Mental Status Mental Status: Alert & Oriented, Answers Appropriately - Nausea Vomiting Nausea Vomiting: Not Present - Hydration Hydration: NPO - Discharge PostOp Status: Discharge Patient to home
== END 2017-09-13 14:00 | disposition home or self-care (01) | DRG 379 ==
LOC: 2ANU 21:30 → EMEROO 21:30 → 2ANU 23:36
PROVIDERS: ADMIT Pediatrics; ATTEND Internal Medicine

== ENCOUNTER 2020-12-12 11:41 | Observation (INO) ==
[2020-12-12] MEDS ORDERED: 0.9 % Sodium Chloride 1,000 ML IVC ONE (12:05)
[2020-12-12] MEDS ORDERED: Ipratropium/Albuterol Neb 3 ML IH ONE (12:06)
[2020-12-12] MEDS ORDERED: cefTRIAXone 1,000 MG in 0.9 % Sodium Chloride Mini Bag 100 ML IVPB ONE (12:41)
[2020-12-12] MEDS ORDERED: Azithromycin 500 MG in 0.9 % Sodium Chloride 250 ML IVPB ONE (12:41)
[2020-12-12 12:42] LABS: Basophils # 0.1 K/mcL (0.0-0.2); Basophils % 0.3 %; Eosinophils # 0.2 K/mcL (0.0-0.6); Eosinophils % 1.1 %; Hematocrit 36.7 % (37.5-50.1); Hemoglobin 11.9 g/dL (12.9-16.9); Lymphocytes # 0.8 K/mcL (0.6-4.6); Lymphocytes % 4.4 %; Mean Corpuscular HGB Conc 32.4 g/dL (31.6-35.5); Mean Corpuscular Hemoglobin 29.7 pg (28.0-33.3); Mean Corpuscular Volume 91.5 fL (83.0-100.0); Mean Platelet Volume 10.4 fL (9.4-12.4); Monocytes # 1.1 K/mcL (0.0-1.3); Monocytes % 6.5 %; Platelet Count 244 K/mcL (140-400); Red Blood Count 4.01 M/mcL (4.19-5.50); Red Cell Distribution Width 15.6 % (11.5-14.5); Segmented Neutrophils % 86.7 %; White Blood Count 17.3 K/mcL (4.3-11.1)
[2020-12-12 12:58] LABS: ABG Base Excess 2 mEq/L (-2 to 3); ABG HCO3 26 mEq/L (21-27); ABG Oxygen Saturation 98 % (95-98); ABG PCO2 38 mmHg (35-45); ABG PH 7.45 pH Units (7.32-7.45); ABG PO2 106 mmHg (85-104); ABG TCO2 27 mEq/L (20-26)
[2020-12-12 13:02] LABS: BUN/Creatinine Ratio 38 (6-26); Blood Urea Nitrogen 45 mg/dL (8-23); Calcium 9.4 mg/dL (8.6-10.3); Carbon Dioxide 29 mEq/L (23-29); Chloride 103 mEq/L (98-107); Glucose 100 mg/dL (70-105); Osmolality,Calculated 296 (280-300); Potassium 4.1 mEq/L (3.5-5.1); Sodium 137 mEq/L (136-145); eGFR For African Americans > 60 (> 60); eGFR For Non-African Americans 59 (> 60)
[2020-12-12 14:44] LABS: Bilirubin,Urine Negative (Negative); Blood,Urine Negative (Negative); Clarity,Urine Clear (Clear); Color,Urine Light-Yellow (Yellow); Glucose,Urine (UA) Normal (Normal); Ketones,Urine Negative (Negative); Leukocyte Esterase,Urine Negative (Negative); Nitrite,Urine Negative (Negative); Protein,Urine Negative (Neg-Trace); Specific Gravity,Urine 1.014 (1.010-1.025); Urobilinogen,Urine Normal (Normal)
[2020-12-12] MEDS ORDERED: Naloxone 0.4 MG/ML INJ IVP PRN (15:03)
[2020-12-12] MEDS ORDERED: Ondansetron 4 MG/2 ML VIAL IVP PRN (15:03)
[2020-12-12] MEDS: Albuterol 2.5 MG/3 ML NEBULIZER IH SCH ×3 (17:14→23:37)
[2020-12-12] MEDS: Acetaminophen 325 MG TABLET PO PRN (21:40)
[2020-12-13] MEDS: Albuterol 2.5 MG/3 ML NEBULIZER IH SCH ×6 (04:19→23:24)
[2020-12-13 05:11] LABS: Basophils % 0.2 %; Eosinophils # 0.3 K/mcL (0.0-0.6); Eosinophils % 2.5 %; Hematocrit 33.9 % (37.5-50.1); Hemoglobin 11.5 g/dL (12.9-16.9); Immature Granulocytes % 0.5 % (0-4); Lymphocytes # 0.7 K/mcL (0.6-4.6); Lymphocytes % 6.6 %; Mean Corpuscular HGB Conc 33.9 g/dL (31.6-35.5); Mean Corpuscular Hemoglobin 30.7 pg (28.0-33.3); Mean Corpuscular Volume 90.4 fL (83.0-100.0); Mean Platelet Volume 10.4 fL (9.4-12.4); Monocytes # 0.9 K/mcL (0.0-1.3); Monocytes % 7.9 %; Neutrophils # 9.1 K/mcL (1.6-8.9); Platelet Count 229 K/mcL (140-400); Red Blood Count 3.75 M/mcL (4.19-5.50); Red Cell Distribution Width 15.9 % (11.5-14.5); Segmented Neutrophils % 82.3 %; White Blood Count 11.1 K/mcL (4.3-11.1)
[2020-12-13 05:29] LABS: BUN/Creatinine Ratio 40 (6-26); Blood Urea Nitrogen 33 mg/dL (8-23); Calcium 8.8 mg/dL (8.6-10.3); Carbon Dioxide 26 mEq/L (23-29); Chloride 108 mEq/L (98-107); Glucose 92 mg/dL (70-105); Osmolality,Calculated 301 (280-300); Potassium 3.8 mEq/L (3.5-5.1); Sodium 142 mEq/L (136-145); eGFR For African Americans > 60 (> 60); eGFR For Non-African Americans > 60 (> 60)
[2020-12-13] MEDS: Acetaminophen 325 MG TABLET PO PRN ×2 (08:41→20:23)
[2020-12-13] MEDS: Ringers Solution, Lactated 1,000 ML IVC SCH ×2 (08:42→16:52)
[2020-12-13] MEDS ORDERED: lisinopriL 10 MG TABLET PO SCH (09:00)
[2020-12-13] MEDS ORDERED: Sucralfate 1 GM TABLET PO SCH (11:30)
[2020-12-13] MEDS ORDERED: cefTRIAXone 1,000 MG in Water for inj. (sterile) 10 ML IVP SCH (14:00)
[2020-12-13] MEDS ORDERED: Azithromycin 500 MG in 0.9 % Sodium Chloride 250 ML IVPB SCH (14:00)
[2020-12-14] MEDS: Ringers Solution, Lactated 1,000 ML IVC SCH (01:25)
[2020-12-14] MEDS: Albuterol 2.5 MG/3 ML NEBULIZER IH SCH ×2 (03:48→07:28)
[2020-12-14 05:37] LABS: Hemoglobin 10.6 g/dL (12.9-16.9); Mean Corpuscular HGB Conc 32.1 g/dL (31.6-35.5); Mean Corpuscular Hemoglobin 29.2 pg (28.0-33.3); Mean Corpuscular Volume 90.9 fL (83.0-100.0); Mean Platelet Volume 9.9 fL (9.4-12.4); Platelet Count 235 K/mcL (140-400); Red Blood Count 3.63 M/mcL (4.19-5.50); Red Cell Distribution Width 15.4 % (11.5-14.5)
[2020-12-14 05:56] LABS: BUN/Creatinine Ratio 27 (6-26); Blood Urea Nitrogen 19 mg/dL (8-23); Calcium 8.9 mg/dL (8.6-10.3); Carbon Dioxide 29 mEq/L (23-29); Chloride 109 mEq/L (98-107); Glucose 93 mg/dL (70-105); Osmolality,Calculated 294 (280-300); Potassium 3.7 mEq/L (3.5-5.1); Sodium 141 mEq/L (136-145); eGFR For African Americans > 60 (> 60); eGFR For Non-African Americans > 60 (> 60)
[2020-12-14 07:37] VITALS: BP 144/80; PULSE 94; TEMP 98.4; O2SAT 96
[2020-12-14] MEDS ORDERED: lisinopriL 10 MG TABLET GTUBE SCH (09:00)
[2020-12-14] MEDS ORDERED: Spironolactone 12.5 MG TABLET GTUBE SCH (09:00)
== END 2020-12-14 11:04 | disposition home or self-care (01) ==
LOC: EMEROOARM 11:41 → 2ANU 11:41
PROVIDERS: ADMIT Pharmacist; ATTEND Pharmacist